=== PATIENT | female | born 2000 | race Caucasian/White ===

== ENCOUNTER → 2020-06-28 11:27 | Outpatient (BNVA) | payer MEDICAID, SELFPAY | PROVIDERS: Visit Provider Advanced Practice Midwife | DX: Z76.89 Persons encountering health services in other specified circumstances (principal) ==

== ENCOUNTER → 2020-08-07 09:17 | Outpatient (BNVA) | payer MEDICAID, SELFPAY | PROVIDERS: Visit Provider Advanced Practice Midwife | DX: Z30.46 Encounter for surveillance of implantable subdermal contraceptive (principal) | CPT/HCPCS: 99212 ==

== ENCOUNTER 2021-01-30 08:27 | Outpatient (REF) | payer MEDICAID, SELFPAY ==
[2021-01-30 08:55] LABS: COVID-19 Test Negative (Negative)
== END 2021-01-30 08:28 | disposition home or self-care (01) ==
LOC: HO.LAB 08:27
PROVIDERS: Visit Provider Internal Medicine
DX: Z20.822 Contact with and (suspected) exposure to COVID-19 (principal)
CPT/HCPCS: 36415; 87635; C9803

== ENCOUNTER 2021-03-07 13:46 | Outpatient (REF) | payer MEDICAID, SELFPAY ==
[2021-03-08 03:59] LABS: CT PCR NOT DETECTED (Not Detect.); NG PCR NOT DETECTED (Not Detect.)
== END 2021-03-07 13:47 | disposition home or self-care (01) ==
LOC: HO.LAB 13:46
PROVIDERS: Visit Provider Advanced Practice Midwife
DX: Z01.419 Encounter for gynecological examination (general) (routine) without abnormal findings (principal); E66.01 Morbid (severe) obesity due to excess calories; Z11.3 Encounter for screening for infections with a predominantly sexual mode of transmission; Z68.41 Body mass index [BMI] 40.0-44.9, adult
CPT/HCPCS: 87491; 87591; 88142

== ENCOUNTER 2021-06-26 16:30 | Emergency (ER) | payer MEDICAID, SELFPAY ==
[2021-06-26 16:48] VITALS: BP 113/72; PULSE 83; RESP 18; TEMP 36.8; O2SAT 98; BMI 42.0
[2021-06-26 21:25] LABS: MANUAL DIFF FLAG NO
[2021-06-26 21:26] LABS: Appearance Urine CLEAR; Basophils Percent Auto 0.2 % (0-2); Color Urine YELLOW; Eosinophils Absolute Auto 0.3 X10*3/uL (0.0-0.4); Glucose Urine UA NEG (NEG); Hematocrit 45.1 % (37-47); Hemoglobin 15.2 g/dl (12.0-16.0); Imm Gran Abs Auto 0.02 X10*3/uL (0.00-0.03); Imm Gran Pct Auto 0.2 % (0.0-0.4); Leukocyte Esterase Urine NEG (NEG); Lymphocytes Percent Auto 33.4 % (20-40); Mean Corpuscular HGB Conc 33.7 g/dl (31.0-35.0); Mean Corpuscular Hemoglobin 27.5 pg (27.0-33.0); Mean Corpuscular Volume 81.6 fL (80-98); Mean Platelet Volume 9.7 fL (9.4-12.3); Monocytes Absolute Auto 0.5 X10*3/uL (0.1-1.2); Monocytes Percent Auto 5.3 % (2-11); Neutrophils Absolute Auto 5.1 X10*3/uL (2.0-8.3); Neutrophils Percent Auto 57.9 % (45-73); Nitrite Urine NEG (NEG); PH 6.5 (5.0-8.0); Platelet Count 271 X10*3/uL (160-400); Red Blood Count 5.53 X10*6/uL (4.20-5.50); Red Cell Distribution Width 12.8 % (11.0-16.0); Specific Gravity - Urine 1.025 (1.005-1.025); Urine Blood NEG (NEG); Urine Ketones NEG (NEG); Urine Protein NEG (NEG-TRACE); White Blood Count 8.9 X10*3/uL (4.8-10.8)
[2021-06-26 21:45] LABS: Alanine Aminotransferase 28 U/L (0-31); Albumin Level 4.6 g/dL (3.5-5.0); Alkaline Phosphatase 91 U/L (39-117); Anion Gap 12 (12-20); Aspartate Amino Transferase 23 U/L (5-31); Bilirubin Direct 0.2 mg/dL (0.0-0.5); Bilirubin Total 0.4 mg/dL (0.0-1.0); Blood Urea Nitrogen 11 mg/dL (9-16); Calcium 9.4 mg/dL (8.4-10.2); Carbon Dioxide 23 mmol/L (22-29); Chloride 110 mmol/L (96-108); Creatinine Clr Calc Pharmacy 156.1; Estimated Glomerular Filt Rate > 60; Glucose Random 81 mg/dL (60-115); Lipase 27 U/L (8-78); Potassium 4.1 mmol/L (3.3-5.1); Sodium 141 mmol/L (135-145); Total Protein 7.8 g/dL (6.5-8.0)
--- NOTE | 2021-06-26 21:47 | ED_ITS ---
HPI - Nausea/Vomiting/Diarrhea General Chief complaint: Nausea/Vomiting/Diarrhea Stated complaint: rash, migraine, vomiting Time Seen by Provider: 06/26/21 21:29 Source: patient Mode of arrival: ambulatory Limitations: no limitations History of Present Illness HPI Narrative: 21-year-old female who presents emergency department for evaluation of nausea, vomiting, diarrhea, headache and rash. The patient states that she has had a constant headache for approximately 2 weeks. She points to her frontal aspect for forehead when asked to localize the headache. The headache is a pressure-like sensation which waxes and wanes in intensity is 10/10 at its worst. Patient has had associated nausea for 2 weeks. She states that she has had 2-3 episodes of vomiting per day. She has also had 5-7 episodes of loose diarrheal stool daily. She states that any time she eats the food goes right through her and she has diarrhea. Patient has also noticed a rash on her right forearm and abdomen. She states that the rash has not changed but has been the same for 2 weeks. She states that the rash is pruritic and slightly painful. The patient has not been on antibiotics. She has not done any traveling. She has not had any tick bites that she has aura. She denied fever, chills, myalgias, arthralgias. She states that she is feeling fatigued. She denied abdominal pain. Related Data Home Medications Medication Instructions Recorded Confirmed vitamin with calcium 1 tab PO DAILY 06/21/20 06/28/20 no.72-iron 27 mg-folic acid 1 mg tablet ( Plus (calcium carbonate)) etonogestrel 68 mg subdermal SUBDERMAL 06/28/20 06/28/20 implant (Nexplanon) Previous Rx's Medication Instructions Recorded metoclopramide HCl 10 mg tablet 10 mg PO Q6H PRN #14 tab 06/26/21 (Reglan) prednisone 20 mg tablet 60 mg PO DAILY 7 Days #21 tab 06/26/21 Allergies Allergy/AdvReac Type Severity Reaction Status Date / Time cinnamon [CINNAMON] Allergy Severe ANAPHYLAXIS Verified 06/26/21 16:48 sweet potato [SWEET POTATO] Allergy Severe ANAPHYLAXIS Verified 06/26/21 16:48 Review of Systems Review of Systems: Yes all other systems are reviewed and are negative PMFSH Past Medical History [facility] Narrative: Past surgical history: None. Social history: She denies tobacco use. She denies alcohol use. She denies drug use. Medical History Anxiety attack Obesity Surgical History History of tonsillectomy and adenoidectomy Family History Family History Mother Cervical cancer Maternal Uncle Diabetes mellitus CVD (cardiovascular disease) Social History Social History Alcohol intake: never Advance Directives: No Advance Directives Information Provided: Yes Patient : No Gender identity: Female Physical Exam Vital Signs: Vital Signs: Last Vital Signs Temp 98.3 F 06/26/21 16:48 Pulse 83 06/26/21 16:48 Resp 18 06/26/21 16:48 BP 113/72 06/26/21 16:48 Pulse Ox 98 06/26/21 16:48 Body Mass Index 42.0 Const: Other: Very pleasant and cooperative female patient, she does not appear to be in distress. She answers all questions appropriately. HENMT: Head: Yes normal to inspection, Yes normocephalic and Yes atraumatic Ears: external ears normal General nose exam: Normal external nose present Face and sinus: Yes normal facial exam Mouth: Normal oral and palatal mucosa present Throat: Yes posterior oropharynx normal Eyes: General: appearance normal, both eyes and all related structures Pupils: Equal, round and reactive pupils present Neck: Neck: Yes normal visual inspection, Yes no lymphadenopathy, Yes trachea midline and Yes supple Chest: Chest palpation & inspection: normal inspection of the chest and normal palpation of entire chest wall Resp: Effort & Inspection: normal respiratory effort and able to speak in complete sentences Auscultation: clear to auscultation bilaterally Cardio: Rate: regular rate Rhythm: regular rhythm Heart sounds: S1 normal heart sound present, S2 normal heart sound present and no murmurs GI: Inspection: Yes normal to inspection Palpation (GI): Soft to palpation, nontender and no guarding Auscultation: normal bowel sounds : General: Yes no CVA tenderness Back/Spine/Pelvis: Back: no CVA tenderness Skin: Other: The patient has to large irregular oval rash is to her right forearm, the rash is erythematous, scaly and slightly raised, the rash does madalyn with pressure. She has a similar area of erythema on her right lab abdominal wall. The erythema is not warm to the touch. Neuro: Cranial nerves: Yes CN's II-XII intact bilaterally and Yes Equal, round and reactive pupils present Cognition (Neuro): normal cognition Motor exam (neuro): 5/5 motor strength present throughout Extrem: General: Yes normal to inspection Psych: Appearance: grossly normal Speech and movement: Normal speech and movement present Affect: normal affect Attitude: cooperative Thought process: Normal thought process present Thought content: Normal thought content present Course Course Course Narrative: 21-year-old female who presents emergency department for evaluation of 2 weeks of headache, nausea, vomiting and diarrhea and a rash to her right forearm and to her abdomen. Vital signs were normal. The patient's physical examination revealed a rash to her right forearm and to her right abdominal wall which I think is consistent with a contact dermatitis. Patient did not have any significant abdominal pain. Her neurologic exam was nonfocal. I suspect the patient has an acute viral illness as the cause of her symptoms I did discuss this with her. The patient drove herself here to the emergency department and does not want any medications that will inhibit her ability to drive home. Laboratory evaluation was ordered and this included a CBC, BMP, liver panel, lipase and urinalysis. These tests were all normal. The patient will be started on the following headache/migraine regimen every 6 hours as needed: Reglan 10 mg, Benadryl 50 mg, Excedrin migraine 2 tablets. The patient's diarrhea will be treated with Imodium. Patient's contact dermatitis be treated with prednisone 60 mg once a day for 7 days. Patient was given printed and verbal instructions and she was discharged home. MDM - Nausea/Vomiting/Diarrhea Lab Data Result diagrams: 06/26/21 21:19 06/26/21 21:19 Labs: Lab Results 06/26/21 06/26/21 06/26/21 Range/Units 21:19 21:19 21:19 WBC 8.9 (4.8-10.8) X10*3/uL RBC 5.53 H (4.20-5.50) X10*6/uL Hgb 15.2 (12.0-16.0) g/dl Hct 45.1 (37-47) % MCV 81.6 (80-98) fL MCH 27.5 (27.0-33.0) pg MCHC 33.7 (31.0-35.0) g/dl RDW 12.8 (11.0-16.0) % Plt Count 271 (160-400) X10*3/uL MPV 9.7 (9.4-12.3) fL Immature Gran % (Auto) 0.2 (0.0-0.4) % Neut % (Auto) 57.9 (45-73) % Lymph % (Auto) 33.4 (20-40) % [place] % (Auto) 5.3 (2-11) % Eos % (Auto) 3.0 (0-4) % Baso % (Auto) 0.2 (0-2) % Lymph # (Auto) 3.0 (1.2-4.9) X10*3/uL [place] # (Auto) 0.5 (0.1-1.2) X10*3/uL Eos # (Auto) 0.3 (0.0-0.4) X10*3/uL Baso # (Auto) 0.0 (0.0-0.2) X10*3/uL Abs Immat Gran (auto) 0.02 (0.00-0.03) X10*3/uL Absolute Neuts (auto) 5.1 (2.0-8.3) X10*3/uL Absolute Nucleated RBC 0.000 (0.0-0.012) X10*3/uL Nucleated RBC % (auto) 0.0 (0.0-0.2) /100WBC Sodium 141 (135-145) mmol/L Potassium 4.1 (3.3-5.1) mmol/L Chloride 110 H (96-108) mmol/L Carbon Dioxide 23 (22-29) mmol/L Anion Gap 12 (12-20) BUN 11 (9-16) mg/dL Creatinine 0.67 (0.5-1.4) mg/dL Estim Creat Clear Calc 156.1 Estimated GFR > 60 Random Glucose 81 (60-115) mg/dL Calcium 9.4 (8.4-10.2) mg/dL Total Bilirubin 0.4 (0.0-1.0) mg/dL Direct Bilirubin 0.2 (0.0-0.5) mg/dL AST 23 (5-31) U/L ALT 28 (0-31) U/L Alkaline Phosphatase 91 (39-117) U/L Total Protein 7.8 (6.5-8.0) g/dL Albumin 4.6 (3.5-5.0) g/dL Lipase 27 (8-78) U/L Urine Color YELLOW Urine Appearance CLEAR Urine pH 6.5 (5.0-8.0) Ur Specific [place] 1.025 (1.005-1.025) Urine Protein NEG (NEG-TRACE) MG/DL Urine Glucose (UA) NEG (NEG) MG/DL Urine Ketones NEG (NEG) MG/DL Urine Blood NEG (NEG) Urine Nitrite NEG (NEG) Ur Leukocyte Esterase NEG (NEG) Discharge Plan Discharge Clinical Impression: Acute headache, Viral syndrome, Nausea & vomiting, Diarrhea Patient Disposition: Home, Self-Care Instructions: Contact Dermatitis (ED), Acute Headache (ED), Acute Diarrhea (ED) Additional Instructions: Your blood work and urinalysis were unremarkable which is reassuring. Your headache, nausea and vomiting is consistent with a viral infection. I want to treat your headache nausea and vomiting with the following medications, take them together every 6 hours as needed for these symptoms: Reglan (metoclopramide) in 10 mg, 1 pill Benadryl 25 mg, 2 pills Excedrin migraine, 2 pills. After you take these medications, lie down in a dark quiet room and try to fall asleep. These medications will make you sleepy, do not drive or work after taking these medications. Your rash is consistent with a contact dermatitis. Take prednisone 20 mg pills, 3 pills once a day for 7 days. For your diarrhea take Imodium 2 mg pills, 2 pills after your 1st loose diarrheal stool then 1 pill after each loose diarrheal stool up to 8 pills per day. Do this for 2-3 days and that should stop your diarrhea. Follow-up with your doctor in 2 days. Please return to the emergency department if your symptoms get worse or if you develop any symptoms that are concerning to you. Prescriptions: New prednisone 20 mg tablet 60 mg PO DAILY 7 Days Qty: 21 RF: 0 metoclopramide HCl [Reglan] 10 mg tablet 10 mg PO Q6H PRN (Reason: nausea and vomiting) Qty: 14 RF: 0 No Action Plus (calcium carb) 27 mg iron- 1 mg tablet 1 tab PO DAILY RF: 0 Nexplanon 68 mg implant subdermal RF: 0
== END 2021-06-26 22:27 | disposition home or self-care (01) ==
PROVIDERS: Emergency Provider Emergency Medicine Emergency Medical Services
DX: B34.9 Viral infection, unspecified (principal); R51.9 Headache, unspecified; R11.2 Nausea with vomiting, unspecified; R19.7 Diarrhea, unspecified; Z79.899 Other long term (current) drug therapy
CPT/HCPCS: 36415; 80048; 80076; 81003; 83690; 85025; 99283

== ENCOUNTER 2022-01-12 13:57 | Emergency (ER) | payer MEDICAID, SELFPAY ==
--- NOTE | ~2022-01-12 | CT_ITS ---
EXAMINATION: CT ABDOMEN AND PELVIS WITHOUT CONTRAST CLINICAL INFORMATION: Right-sided flank pain, dysuria COMPARISON: CT abdomen pelvis 11/13/2017 TECHNIQUE: Multidetector volumetric imaging was performed from the superior aspect of the liver through the pubic symphysis. Sagittal and coronal reformatted images were obtained on the technologist's workstation. This CT examination was performed using dose optimization techniques as appropriate, variously including the following: *Automated exposure control *Adjustment of mA and/or kV according to patient size (this includes techniques or standardized protocols for targeted exams where dose is matched to indication/reason for exam; i.e. extremities or head) *Use of iterative reconstruction technique DLP: 965 mGy-cm FINDINGS: LUNG BASES: Left upper lobe solid pulmonary micronodule, 4:14. ABDOMINAL AND PELVIC WALL: Tiny fat-containing umbilical hernia. LIVER AND BILIARY TREE: Hypoattenuating hepatic parenchyma suggesting hepatic steatosis. GALLBLADDER: Unremarkable. PANCREAS: Unremarkable. SPLEEN: Unremarkable. ADRENAL GLANDS: Unremarkable. KIDNEYS AND URETERS: Punctate nonobstructing left upper pole renal stone. No obstructive ureterolithiasis or hydronephrosis. GASTROINTESTINAL TRACT: Colonic diverticulosis without evidence of diverticulitis. Normal appendix. VASCULAR: Unremarkable. LYMPH NODES/PERITONEUM: Few prominent retroperitoneal and mesenteric nodes appear not significantly changed from 2018. No new or increasing lymphadenopathy. FREE FLUID: None. BLADDER: Unremarkable. PELVIC VISCERA: Unremarkable. OSSEOUS STRUCTURES: Unremarkable. CT/CT abdomen pelvis wo con IMPRESSION: Punctate nonobstructing left upper pole renal stone. No obstructive ureterolithiasis or hydronephrosis. Hepatic steatosis. A left upper lobe solid pulmonary micronodule. In patients younger than age 35, standard Fleischner Society recommendations for incidental pulmonary nodule follow-up do not apply as nodules in this age group are most likely to be infectious/inflammatory. Recommend clinical correlation with any risk factors to assess if follow-up of these nodules is clinically warranted.
[2022-01-12 14:15] VITALS: BP 119/74; PULSE 83; RESP 16; TEMP 36.8; O2SAT 98; BMI 40.7
[2022-01-12 15:08] LABS: Appearance Urine HAZY; Color Urine YELLOW; Glucose Urine UA NEG (NEG); Leukocyte Esterase Urine NEG (NEG); Nitrite Urine NEG (NEG); Specific Gravity - Urine 1.025 (1.005-1.025); Urine Blood NEG (NEG); Urine Ketones NEG (NEG); Urine Protein NEG (NEG-TRACE)
[2022-01-12 15:10] LABS: UPreg QC Valid YES; Urine Pregnancy NEGATIVE (NEGATIVE)
--- NOTE | 2022-01-12 15:43 | ED_ITS ---
HPI - Female Genitourinary General Chief complaint: Urogenital-Female Stated complaint: kidney pain painfull upon urination Time Seen by Provider: 01/12/22 14:36 Source: patient Mode of arrival: ambulatory Limitations: no limitations History of Present Illness HPI Narrative: 21 yo female with history of obesity presents to the ER with 3 days of intermittent sharp right sided flank pain. She also reports 2 days ago she had nausea, vomiting and diarrhea. She denies fever, chills, or pain with urination. She states the pain starts in her right lower abdomen and shoots up and around to her right flank. She is not sure if she may be , LMP 3 years ago w/ control implant in the arm. She denies any vaginal bleeding, pain or discharge. She denies history of ovarian cysts or kidney stones. No URI symp toms. MD elicited complaint: flank pain Onset (ago): day(s) (3) Location of symptoms: RLQ Severity: moderate Female Urogenital Radiation: R Flank Severity scale (1-10): 7 Quality of pain: sharp and stabbing Consistency: intermittent Vaginal discharge: none Vaginal bleeding: none Exacerbating factors: none Relieving factors: none Associated symptoms: abdominal pain, loss of appetite, nausea, vomiting and back pain Treatment prior to arrival: none Possible : unsure if Related Data Home Medications Medication Instructions Recorded Confirmed vitamin with calcium 1 tab PO DAILY 06/21/20 06/28/20 no.72-iron 27 mg-folic acid 1 mg tablet ( Plus (calcium carbonate)) etonogestrel 68 mg subdermal SUBDERMAL 06/28/20 06/28/20 implant (Nexplanon) Previous Rx's Medication Instructions Recorded metoclopramide HCl 10 mg tablet 10 mg PO Q6H PRN #14 tab 06/26/21 (Reglan) prednisone 20 mg tablet 60 mg PO DAILY 7 Days #21 tab 06/26/21 Allergies Allergy/AdvReac Type Severity Reaction Status Date / Time cinnamon [CINNAMON] Allergy Severe ANAPHYLAXIS Verified 01/12/22 14:18 sweet potato [SWEET POTATO] Allergy Severe ANAPHYLAXIS Verified 01/12/22 14:18 Review of Systems Review of Systems: Constitutional: No Fever, No Chills ENT/Mouth: No sore throat, No Rhinorrhea, No Swallowing Difficulty Eyes: No Eye Pain, No Swelling, No Redness Cardiovascular: No Chest Pain, No SOB Respiratory: No Cough, No Sputum Gastrointestinal: + Nausea, +Vomiting, +Diarrhea, + abdominal Pain, No Hematochezia, No Melena Genitourinary: No Dysuria, No Urinary Frequency, No Hematuria Musculoskeletal: No joint pain, No Myalgias Skin: No Skin Lesions, No rash Neuro: No Weakness, No Numbness, No Dizziness, No Headache Psych: No Anxiety/Panic, No Depression Heme/Lymph: No Bruising, No Lymphadenopathy Endocrine: No Polyuria, No Polydipsia PMFSH Past Medical History Medical History Anxiety attack Obesity Surgical History History of tonsillectomy and adenoidectomy Family History Family History Mother Cervical cancer Maternal Uncle Diabetes mellitus CVD (cardiovascular disease) Social History Social History Alcohol intake: never Advance Directives: No Advance Directives Information Provided: No Patient : No Gender identity: Female Physical Exam Vital Signs: Vital Signs: Last Vital Signs Temp 98.2 F 01/12/22 14:15 Pulse 83 01/12/22 14:15 Resp 16 01/12/22 14:15 BP 119/74 01/12/22 14:15 Pulse Ox 98 01/12/22 14:15 BMI result Body Mass Index 40.7 Appearance: Alert. Oriented X3. No acute distress. Eyes: Pupils equal, round and reactive to light. ENT: Pharynx normal. Neck: Normal inspection. Neck supple. CVS: Normal heart rate and rhythm. Pulses normal. Respiratory: No respiratory distress. Breath sounds normal. Abdomen: Obese, Soft with tenderness of the right side of her abdomen, no r ebound or guarding. normal +BS x4. +CVA tenderness on the right. Pelvic deferred Skin: Skin warm and dry. Normal skin color. Normal skin turgor. No rashes. Extremities: No lower extremity edema. Neuro: Oriented X 3. No motor deficit. No sensory deficit. Course Course Course Narrative: 21 y/o female presenting to the ER with intermittent right sided abdominal pain and flank pains along with N/V/D (now resolved). VS normal. She has some tenderness throughout her right abd to deep palpation as well as right CVA tenderenss. UA is negative for blood, infection and . Will get basic l abs and CT scan for further evaluation. Reevaluation(s) Reevaluation #1: Labs are normal. Her CT scan does not show any acute findings to explain her symptoms. She has nonobstructing punctate left upper pole renal stones with no ureterolithiasis or hydronephrosis. Appendix is normal. Pelvic viscera are normal. Given her normal workup and reports of vomiting and diarrhea 2 days ago her abdominal pain may be due to viral gastroenteritis. She has had no vomiting or diarrhea here. No severe abdominal pain while in the emergency room. She is tolerating p.o.. She is stable for discharge home with supportive care, return precautions were discussed. MDM - Female Genitourinary Lab Data Result diagrams: 01/12/22 17:09 01/12/22 17:09 Labs: Lab Results 01/12/22 01/12/22 01/12/22 Range/Units 14:39 14:39 17:09 WBC 9.8 (4.8-10.8) X10*3/uL RBC 5.32 (4.20-5.50) X10*6/uL Hgb 14.7 (12.0-16.0) g/dl Hct 43.4 (37.0-47.0) % MCV 81.6 (80.0-98.0) fL MCH 27.6 (27.0-33.0) pg MCHC 33.9 (31.0-35.0) g/dl RDW 12.6 (11.0-16.0) % Plt Count 285 (160-400) X10*3/uL MPV 9.4 (9.4-12.3) fL Immature Gran % (Auto) 0.4 (0.0-0.4) % Neut % (Auto) 60.4 (45-73) % Lymph % (Auto) 31.7 (20-40) % [place] % (Auto) 5.5 (2-11) % Eos % (Auto) 1.8 (0-4) % Baso % (Auto) 0.2 (0-2) % Lymph # (Auto) 3.1 (1.2-4.9) X10*3/uL [place] # (Auto) 0.5 (0.1-1.2) X10*3/uL Eos # (Auto) 0.2 (0.0-0.4) X10*3/uL Baso # (Auto) 0.0 (0.0-0.2) X10*3/uL Abs Immat Gran (auto) 0.04 H (0.00-0.03) X10*3/uL Absolute Neuts (auto) 5.9 (2.0-8.3) x10*3/uL Absolute Nucleated RBC 0.000 (0.0-0.012) X10*3/uL Nucleated RBC % (auto) 0.0 (0.0-0.2) /100WBC Sodium (135-145) mmol/L Potassium (3.3-5.1) mmol/L Chloride (96-108) mmol/L Carbon Dioxide (22-29) mmol/L Anion Gap (12-20) BUN (9-16) mg/dL Creatinine (0.5-1.4) mg/dL Estim Creat Clear Calc Estimated GFR Random Glucose (60-115) mg/dL Calcium (8.4-10.2) mg/dL Magnesium (1.6-2.6) mg/dL Total Bilirubin (0.0-1.0) mg/dL Direct Bilirubin (0.0-0.5) mg/dL AST (5-31) U/L ALT (0-31) U/L Alkaline Phosphatase (39-117) U/L Total Protein (6.5-8.0) g/dL Albumin (3.5-5.0) g/dL Urine Color YELLOW Urine Appearance HAZY Urine pH 6.0 (5.0-8.0) Ur Specific [place] 1.025 (1.005-1.025) Urine Protein NEG (NEG-TRACE) MG/DL Urine Glucose (UA) NEG (NEG) MG/DL Urine Ketones NEG (NEG) MG/DL Urine Blood NEG (NEG) Urine Nitrite NEG (NEG) Ur Leukocyte Esterase NEG (NEG) Urine Test NEGATIVE (NEGATIVE) 01/12/22 Range/Units 17:09 WBC (4.8-10.8) X10*3/uL RBC (4.20-5.50) X10*6/uL Hgb (12.0-16.0) g/dl Hct (37.0-47.0) % MCV (80.0-98.0) fL MCH (27.0-33.0) pg MCHC (31.0-35.0) g/dl RDW (11.0-16.0) % Plt Count (160-400) X10*3/uL MPV (9.4-12.3) fL Immature Gran % (Auto) (0.0-0.4) % Neut % (Auto) (45-73) % Lymph % (Auto) (20-40) % [place] % (Auto) (2-11) % Eos % (Auto) (0-4) % Baso % (Auto) (0-2) % Lymph # (Auto) (1.2-4.9) X10*3/uL [place] # (Auto) (0.1-1.2) X10*3/uL Eos # (Auto) (0.0-0.4) X10*3/uL Baso # (Auto) (0.0-0.2) X10*3/uL Abs Immat Gran (auto) (0.00-0.03) X10*3/uL Absolute Neuts (auto) (2.0-8.3) x10*3/uL Absolute Nucleated RBC (0.0-0.012) X10*3/uL Nucleated RBC % (auto) (0.0-0.2) /100WBC Sodium 139 (135-145) mmol/L Potassium 4.3 (3.3-5.1) mmol/L Chloride 107 (96-108) mmol/L Carbon Dioxide 24 (22-29) mmol/L Anion Gap 12 (12-20) BUN 12 (9-16) mg/dL Creatinine 0.72 (0.5-1.4) mg/dL Estim Creat Clear Calc 142.7 Estimated GFR > 60 Random Glucose 75 (60-115) mg/dL Calcium 9.3 (8.4-10.2) mg/dL Magnesium 2.0 (1.6-2.6) mg/dL Total Bilirubin 0.5 (0.0-1.0) mg/dL Direct Bilirubin 0.2 (0.0-0.5) mg/dL AST 14 (5-31) U/L ALT 16 (0-31) U/L Alkaline Phosphatase 83 (39-117) U/L Total Protein 7.0 (6.5-8.0) g/dL Albumin 4.0 (3.5-5.0) g/dL Urine Color Urine Appearance Urine pH (5.0-8.0) Ur Specific [place] (1.005-1.025) Urine Protein (NEG-TRACE) MG/DL Urine Glucose (UA) (NEG) MG/DL Urine Ketones (NEG) MG/DL Urine Blood (NEG) Urine Nitrite (NEG) Ur Leukocyte Esterase (NEG) Urine Test (NEGATIVE) Discharge Plan Discharge Clinical Impression: Gastroenteritis Patient Disposition: Home, Self-Care Instructions: Gastroenteritis (DC) Additional Instructions: You lab workup today was unremarkable. Your urine test was negative for infection and . You most likely have a viral GI bug also known as gastroenteritis. Treatment is supportive care, symptoms usually resolve on their own in 48-72 hours. Recommend rest and plenty of oral hydration. Stick to a bland diet like soup and toast while you are not feeling well. Recommend over the counter Pepto Bismol or Imodium for upset stomach and diarrhea. Follow up with your doctor as needed. If you develop new or worsening symptoms call 911 or come back to the ER for further evaluation. Prescriptions: No Action prednisone 20 mg tablet 60 mg PO DAILY 7 Days Qty: 21 0RF metoclopramide HCl [Reglan] 10 mg tablet 10 mg PO Q6H PRN (Reason: nausea and vomiting) Qty: 14 0RF Plus (calcium carb) 27 mg iron- 1 mg tablet 1 tab PO DAILY 0RF Nexplanon 68 mg implant subdermal 0RF Stand Alone Forms: Work/School Release Interventions: ED Discharge Assessment Last Done: 01/12/22 17:51 Discharge Date/Time: 01/12/22 17:54
[2022-01-12 17:14] LABS: MANUAL DIFF FLAG NO
[2022-01-12 17:19] LABS: Basophils Percent Auto 0.2 % (0-2); Eosinophils Absolute Auto 0.2 X10*3/uL (0.0-0.4); Eosinophils Percent Auto 1.8 % (0-4); Hematocrit 43.4 % (37.0-47.0); Hemoglobin 14.7 g/dl (12.0-16.0); Imm Gran Abs Auto 0.04 X10*3/uL (0.00-0.03); Imm Gran Pct Auto 0.4 % (0.0-0.4); Lymphocytes Absolute Auto 3.1 X10*3/uL (1.2-4.9); Lymphocytes Percent Auto 31.7 % (20-40); Mean Corpuscular HGB Conc 33.9 g/dl (31.0-35.0); Mean Corpuscular Hemoglobin 27.6 pg (27.0-33.0); Mean Corpuscular Volume 81.6 fL (80.0-98.0); Mean Platelet Volume 9.4 fL (9.4-12.3); Monocytes Absolute Auto 0.5 X10*3/uL (0.1-1.2); Monocytes Percent Auto 5.5 % (2-11); Neutrophils Absolute Auto 5.9 x10*3/uL (2.0-8.3); Neutrophils Percent Auto 60.4 % (45-73); Platelet Count 285 X10*3/uL (160-400); Red Blood Count 5.32 X10*6/uL (4.20-5.50); Red Cell Distribution Width 12.6 % (11.0-16.0); White Blood Count 9.8 X10*3/uL (4.8-10.8)
[2022-01-12 17:29] LABS: Alanine Aminotransferase 16 U/L (0-31); Alkaline Phosphatase 83 U/L (39-117); Anion Gap 12 (12-20); Aspartate Amino Transferase 14 U/L (5-31); Bilirubin Direct 0.2 mg/dL (0.0-0.5); Bilirubin Total 0.5 mg/dL (0.0-1.0); Blood Urea Nitrogen 12 mg/dL (9-16); Calcium 9.3 mg/dL (8.4-10.2); Carbon Dioxide 24 mmol/L (22-29); Chloride 107 mmol/L (96-108); Creatinine Clr Calc Pharmacy 142.7; Estimated Glomerular Filt Rate > 60; Glucose Random 75 mg/dL (60-115); Potassium 4.3 mmol/L (3.3-5.1); Sodium 139 mmol/L (135-145)
== END 2022-01-12 17:54 | disposition home or self-care (01) ==
PROVIDERS: Physician Assistant; Emergency Provider Emergency Medicine; PCP Pediatrics
DX: K52.9 Noninfective gastroenteritis and colitis, unspecified (principal); R30.9 Painful micturition, unspecified; N20.0 Calculus of kidney
CPT/HCPCS: 36415; 74176; 80048; 80076; 81003; 81025; 83735; 85025; 99283; 99284

== ENCOUNTER 2022-05-08 14:34 | Outpatient (REF) | payer MEDICAID, SELFPAY ==
[2022-05-08 18:48] LABS: CT PCR NOT DETECTED (Not Detect.); NG PCR NOT DETECTED (Not Detect.)
[2022-05-09 10:51] LABS: BV Int Neg Control Negative (Negative); BV Int Pos Control Positive (Positive)
== END 2022-05-08 14:35 | disposition home or self-care (01) ==
LOC: HO.LAB 14:34
PROVIDERS: Visit Provider Advanced Practice Midwife
DX: Z11.3 Encounter for screening for infections with a predominantly sexual mode of transmission (principal)
CPT/HCPCS: 36415; 86704; 86780; 86803; 87389; 87480; 87491; 87510; 87591; 87660

== ENCOUNTER 2022-05-08 14:46 | Outpatient (REF) | payer MEDICAID, SELFPAY ==
[2022-05-08 16:24] LABS: Syphilis Screen Nonreactive (Nonreactive)
[2022-05-09 08:32] LABS: HBc Num1 0.09 S/CO (0.00-0.79); HIV AB/AG Nonreactive (Nonreactive); HIV Num 1 0.08 S/CO (0.00-0.99); Hepatitis B Core Antibody Nonreactive (Nonreactive); ~HepC Num1 0.08 S/CO (0.00-0.79); ~Hepatitis C Antibody Nonreactive (Nonreactive)
== END 2022-05-08 14:47 | disposition home or self-care (01) ==
LOC: HO.LAB 14:46
PROVIDERS: Visit Provider Advanced Practice Midwife
DX: Z11.4 Encounter for screening for human immunodeficiency virus [HIV] (principal); Z20.2 Contact with and (suspected) exposure to infections with a predominantly sexual mode of transmission
CPT/HCPCS: 36415; 86704; 86780; 86803; 87389

== ENCOUNTER 2023-04-09 14:32 | Outpatient (AMB) | payer MEDICAID, SELFPAY ==
--- NOTE | 2023-04-09 14:39 | MHC.OFFVIS ---
Intake Vital Signs 04/09/23 14:40 Height 5 ft 3 in Weight 248 lb BMI 43.9 BP 100/64 Intake Visit Reasons: control consult Intake Note: pt wants to discuss removing nexplanon and changing to another BC. The patient agreed to use of a medical office technician during this encounter. Scribed for TASHI Esteves by Crystal Yosusef medical office technician, on 04/09/2023 at 3:00 pm EST. Allergies cinnamon [CINNAMON] Allergy (Severe, Verified 04/09/23 14:42) ANAPHYLAXIS sweet potato [SWEET POTATO] Allergy (Severe, Verified 04/09/23 14:42) ANAPHYLAXIS HPI HPI Comments History of Present Illness Details She is here for a control consult and interested in removing her Nexplanon, due to be replaced 06/2023. Reports she is not interested in at the moment and will plan a in the future. She has concerns of recent weight gain despite eating healthy and exercising. [facility] Medical History Anxiety attack control counseling Obesity Surgical History History of tonsillectomy and adenoidectomy Family History Mother Cervical cancer Maternal Uncle Diabetes mellitus CVD (cardiovascular disease) Maternal Aunt Ovarian cancer Social History Alcohol intake: never Patient Tobacco Use Status: Never used Tobacco Sexual orientation: Straight/Heterosexual Gender identity: Female Female Reproductive History Menstrual Age of Menarche: 8 Physical Exam Vital Signs: Last Vital Signs BP 100/64 04/09/23 14:40 BMI result Body Mass Index 43.9 Const General: cooperative, healthy appearing, comfortable, no acute distress, well developed, alert and awake Assessment & Plan Assessment & Plan (1) control counseling: Code(s): Z30.09 - Encounter for other general counseling and advice on contraception Plan: Discussed: Informed that Nexplanon can contribute to weight changes. Different BC options including control pills: OCP-she forgets pills, DPMA, IUD and Nexplanon. She opts for the Kyleena IUD. Discussed the benefits of the IUD. Types of progesterone IUD's. Schedule Nexplanon removal and same day Kyleena insertion before the device expires. All of her questions and concerns were addressed to the best of my ability and shared decision making. She is agreeable to plan of care. Coding Level of Care Code Est Pt Level 3 (30191) Diagnoses control counseling Z30.09
[2023-04-09 14:40] VITALS: BP 100/64; BMI 43.9
== END 2023-04-09 15:20 | disposition home or self-care (01) ==
LOC: HO.HWS 14:32
PROVIDERS: PCP Pediatrics; Visit Provider Advanced Practice Midwife
DX: Z30.09 Encounter for other general counseling and advice on contraception (principal)
CPT/HCPCS: 99213

== ENCOUNTER → 2023-04-09 14:32 | Outpatient (BNVA) | payer MEDICAID, SELFPAY | PROVIDERS: PCP Pediatrics; Visit Provider Advanced Practice Midwife | DX: Z30.09 Encounter for other general counseling and advice on contraception (principal) | CPT/HCPCS: 99213 ==

== ENCOUNTER 2023-04-19 12:28 | Emergency (ER) | payer MEDICAID, SELFPAY ==
--- NOTE | ~2023-04-19 | CT_ITS ---
EXAMINATION: CT HEAD WITHOUT CONTRAST CLINICAL INFORMATION: Headache. COMPARISON: None. TECHNIQUE: Contiguous axial imaging was performed from the skull base to vertex without intravenous administration of contrast. Coronal and sagittal reformatted images are performed at the CT scanner. [This CT examination was performed using dose optimization techniques as appropriate, variously including the following: *Automated exposure control *Adjustment of mA and/or kV according to patient size (this includes techniques or standardized protocols for targeted exams where dose is matched to indication/reason for exam; i.e. extremities or head) *Use of iterative reconstruction technique] DLP: 606 mGy-cm. FINDINGS: There is no evidence of acute intracranial hemorrhage or territorial infarction. No abnormal mass-effect or midline shift is seen. Ceja to white matter differentiation is well preserved. No extra-axial fluid collections are identified. The ventricles are normal in size. There is no abnormal attenuation within the brain parenchyma. There is no osseous abnormality. The mastoid air cells and visualized portions of the paranasal sinuses are well-aerated. CT/CT head/brain wo IV con IMPRESSION: No acute intracranial pathology.
--- NOTE | 2023-04-19 12:39 | ED.HA ---
HPI - Headache General Chief Complaint: Headache Stated Complaint: headache 1 week Time Seen by Provider: 04/19/23 15:55 Source: patient Mode of arrival: ambulatory Limitations: no limitations History of Present Illness HPI Narrative: 23 yo female hx of chronic headaches 2+ a week no prior workup notes that she has had a headache since friday has worsened no fevers no trauma started at work but no heavy lifting or straining. she has no neck pain headache is in front of face she has no sinus issues. she feels her vision is slightly burry at times due to pain and feels dizzy with n/v she has no fam hx of headaches and is not responding to advil. MD elicited complaint: headache Pertinent past history: other (chronic headaches) Onset (ago): week(s) (1) Onset description: gradually and while at rest Location: frontal and temporal Severity: moderate Quality & Timing: dull, steady, squeezing and constant Exacerbating factors: light and noise Relieving factors: nothing Context: occurred at rest Associated symptoms: nausea, vomiting, photophobia and lightheadedness Treatments prior to arrival: none Related Data Home Medications Medication Instructions Recorded Confirmed etonogestrel 68 mg subdermal subdermal 06/28/20 06/28/20 implant (Nexplanon) Previous Rx's Medication Instructions Recorded cyclobenzaprine 10 mg tablet 10 mg PO TID PRN muscle spasm #14 04/19/23 tabs ondansetron 4 mg disintegrating 4 mg PO Q8H PRN nausea and 04/19/23 tablet vomiting #20 tabs Allergies Allergy/AdvReac Type Severity Reaction Status Date / Time cinnamon [CINNAMON] Allergy Severe ANAPHYLAXIS Verified 04/19/23 12:42 sweet potato [SWEET POTATO] Allergy Severe ANAPHYLAXIS Verified 04/19/23 12:42 Review of Systems Review of Systems: Constitutional : No Fever, No Chills, No Fatigue ENT/Mouth : No sore throat, No Rhinorrhea Eyes: No Eye Pain, No Swelling, No Redness, pos photophobia Cardiovascular : No Chest Pain, No SOB, No Dyspnea on Exertion Respiratory : No Cough, No Sputum Gastrointestinal : pos Nausea, pos Vomiting, No Diarrhea, No abdominal Pain Genitourinary : No Dysuria, No Urinary Frequency, No Hematuria, Musculoskeletal : No joint pain, No Myalgias, No Joint Swelling Skin : No Skin Lesions, No rash Neuro : No Weakness, No Numbness, pos Dizziness, positive Headache Psych : No Anxiety/Panic, No Depression All other systems reviewed and are negative [facility] Past Medical History Attestation statement: The following information was validated with the patient. Medical History Anxiety attack control counseling Obesity Surgical History History of tonsillectomy and adenoidectomy Family History Family History Mother Cervical cancer Maternal Uncle Diabetes mellitus CVD (cardiovascular disease) Maternal Aunt Ovarian cancer Social History Social History Alcohol intake: never Patient Tobacco Use Status: Never used Tobacco Smoked in Last 30 Days: No Use of substances other than those prescribed or required for medical reasons: No Advance Directives: No Advance Directives Information Provided: Yes Sexual orientation: Straight/Heterosexual Gender identity: Female Physical Exam Vital Signs: Vital Signs: Last Vital Signs Temp 98.5 F 04/19/23 15:10 Pulse 65 04/19/23 15:10 Resp 16 04/19/23 15:10 BP 127/80 04/19/23 15:10 Pulse Ox 100 04/19/23 15:10 O2 Del Method Room Air 04/19/23 15:10 BMI result Body Mass Index 44.6 Appearance: Alert. Oriented X3. No acute distress. Eyes: Pupils equal, round and reactive to light. ENT: Pharynx normal. Neck: Normal inspection. Neck supple. no meningeal signs CVS: Normal heart rate and rhythm. Pulses normal. Respiratory: No respiratory distress. Breath sounds normal. Abdomen: Soft and nontender. Skin: Skin warm and dry. Normal skin color. Normal skin turgor. Extremities: No lower extremity edema. No calf ttp Neuro: Oriented X 3. No motor deficit. No sensory deficit. Cn2-12 intact Course Course Course Narrative: This is an RME: Additional HPI, ROS, PE not included below will be deferred to primary provider. Patient is a 23-year-old female who presents emergency department for intractable headache x1 week, diffuse frontal, burning type of pain, with associated nausea, vomiting, dizziness. Denies neck pain. Took Advil 800 mg 2 hours ago without any improvement. LMP unknown, has nexplanon. Plan: placed in WR pending bed availability Reevaluation(s) Reevaluation #1: feels better stable for DC Medical Decision Making Medical Decision Making [facility] Narrative: 23 yo female no PMH not on thinners here with c/o frontal temporal infection notes headache gradual onset no fevers normal neuro exam supple neck - worsening since Friday doubt ICH or [employer]IVE infection at this time will obtain CT scan for mass given chronic headaches and treat symptoms - likely migraine Differential Diagnosis Differential Diagnoses: The differential diagnosis associated with the presentation includes tension headache, cluster, migraine, sinus infection, doubt SAH given gradual onset, doubt infection no fevers or meningeal signs Lab Data [facility] Lab Attestation statement: I reviewed the patient's lab results. Labs: Lab Results 04/19/23 04/19/23 Range/Units 16:10 16:10 Urine Color Yellow Urine Appearance Cloudy Urine pH 7.0 (5.0-9.0) Ur Specific Warren >= 1.030 H (1.005-1.025) Urine Protein Negative (Neg-Trace) mg/dL Urine Glucose (UA) Negative (Negative) mg/dL Urine Ketones Negative (Negative) mg/dL Urine Blood Moderate (2+) H (Negative) Urine Nitrite Negative (Negative) Ur Leukocyte Esterase Negative (Negative) Urine RBC 3-5 H (0-2) /HPF Urine WBC 6-10 H (0-5) /HPF Ur Squamous Epith Cells 11-20 (0-2) /HPF Urine Bacteria 1+ (None Seen) Hyaline Casts 0-2 (0-2) /LPF Urine Test NEGATIVE (NEGATIVE) Independent Interpretation I performed an independent interpretation of an: CT Scan Interpretation: no mass noted, no ICH Radiology Impression Discussion of test interpretation with radiology: I have reviewed the radiologist's reading. External Record Review External record reviewed: Inpatient record and Prior outpatient labs Prescription Management I considered prescription management with: Other (zofran and flexeril) Discharge Plan Discharge Clinical Impression: Migraine Qualifiers: Migraine type: unspecified Status migrainosus presence: without status migrainosus Intractability: not intractable Qualified Code(s): G43.909 - Migraine, unspecified, not intractable, without status migrainosus Patient Disposition: Home, Self-Care Instructions: Migraine Headache (ED) Additional Instructions: for worsening symptoms, severe pain, numbness, weakness, loss of vision, fevers, or any other concerns. CT scan was normal, negative test Prescriptions: New cyclobenzaprine 10 mg tablet 10 mg PO TID PRN (Reason: muscle spasm) Qty: 14 0RF ondansetron 4 mg tablet,disintegrating 4 mg PO Q8H PRN (Reason: nausea and vomiting) Qty: 20 0RF No Action Nexplanon 68 mg implant subdermal Stand Alone Forms: Work/School Release
[2023-04-19 12:40] VITALS: BP 141/84; PULSE 62; RESP 18; TEMP 36.3; O2SAT 100; BMI 44.6
[2023-04-19 15:10] VITALS: BP 127/80; PULSE 65; RESP 16; TEMP 36.9; O2SAT 100
--- NOTE | 2023-04-19 15:21 | PC.NURSE ---
Pt stated she took 4 ibuprofen before coming to hospital, couldn't remember the dose but stated they were the small pills.
[2023-04-19 16:27] LABS: Appearance Urine Cloudy; Color Urine Yellow; Glucose Urine UA Negative (Negative); Leukocyte Esterase Urine Negative (Negative); Nitrite Urine Negative (Negative); Specific Gravity - Urine >= 1.030 (1.005-1.025); UMIC TRIGGER UACC YES; Urine Blood Moderate (2+) (Negative); Urine Ketones Negative (Negative); Urine Protein Negative (Neg-Trace)
[2023-04-19 16:28] LABS: UPreg QC Valid YES; Urine Pregnancy NEGATIVE (NEGATIVE)
[2023-04-19 16:39] LABS: Bacteria Urine 1+ (None Seen); Hyaline Casts Urine 0-2 /LPF (0-2); UACC Culture Trigger YES
--- NOTE | 2023-04-19 17:35 | PC.NURSE ---
Medication administered late due to IV access.
--- NOTE | 2023-04-19 17:39 | PC.NURSE ---
difficult to obtain IV access one has been established in L hand
[2023-04-19] MEDS: diphenhydrAMINE HCL 50 MG/ML VIAL 25 MG IVPUSH (17:50)
[2023-04-19] MEDS: Ketorolac Tromethamine 15 MG/ML VIAL IVPUSH (17:50)
[2023-04-19] MEDS: Metoclopramide HCl 10 MG/2 ML VIAL IVPUSH (17:50)
[2023-04-19] MEDS: 0.9 % Sodium Chloride 1,000 ML 999 ML IV (17:50)
--- NOTE | 2023-04-19 17:57 | PC.NURSE ---
Medication administered late due to difficult IV access. provide made aware.
[2023-04-19 18:47] VITALS: BP 108/62; PULSE 60; RESP 16; TEMP 36.8; O2SAT 99
== END 2023-04-19 18:55 | disposition home or self-care (01) ==
PROVIDERS: Nurse Practitioner Family; Emergency Provider Emergency Medicine; PCP Pediatrics
DX: G43.909 Migraine, unspecified, not intractable, without status migrainosus (principal); E66.9 Obesity, unspecified; Z68.41 Body mass index [BMI] 40.0-44.9, adult
CPT/HCPCS: 70450; 81001; 81025; 87086; 96374; 96375; 99284; 99285; J1200; J1885; J2765

== ENCOUNTER 2023-06-27 12:39 | Outpatient (AMB) | payer MEDICAID, SELFPAY ==
--- NOTE | 2023-06-27 12:46 | MHC.OFFVIS ---
Intake Vital Signs 06/27/23 12:48 Height 5 ft 3 in Weight 251 lb 5.231 oz BMI 44.5 BP 116/78 Intake Visit Reasons: Kyleena insertion/Nexplanon Removal/45 min Intake Note: The patient agreed to use of a medical records auditor during this encounter. Scribed for TASHI Esteves by Crystal Youssef medical records auditor, on 06/27/2023 at 12:58 pm EST. Inside Sales Person Required: No Information Interpreted: non-clinical & clinical Tray Setter: Tray Setter Present (Erendira NAVAS) Accompanied by: Self / Same As Patient Allergies cinnamon [CINNAMON] Allergy (Severe, Verified 06/27/23 12:48) ANAPHYLAXIS sweet potato [SWEET POTATO] Allergy (Severe, Verified 06/27/23 12:48) ANAPHYLAXIS Is last menstrual period known: No (nexplanon) HPI HPI Comments History of Present Illness Details She is here for Nexplanon removal and Kyleena IUD insertion. See procedure note. [facility] Medical History control counseling Obesity Anxiety attack Surgical History History of tonsillectomy and adenoidectomy Family History Mother Cervical cancer Maternal Uncle Diabetes mellitus CVD (cardiovascular disease) Maternal Aunt Ovarian cancer Social History Alcohol intake: never Patient Tobacco Use Status: Never used Tobacco Sexual orientation: Straight/Heterosexual Gender identity: Female Female Reproductive History Menstrual Age of Menarche: 8 control method: progestin IUCD (Kyleena 06/27/23) Physical Exam Vital Signs: Last Vital Signs BP 116/78 06/27/23 12:48 BMI result Body Mass Index 44.5 Const General: cooperative, healthy appearing, comfortable, no acute distress, well developed, alert and awake Other: General: Yes bladder normal to palpation External Female Exam: normal external appearance and normal appearance of the urethra Speculum Exam - Vagina: normal appearance of the vagina, normal palpation and normal vaginal discharge Speculum Exam - Cervix: normal appearance of the cervix, normal palpation and Other cervical findings present (IUD strings visible) Bimanual exam- vagina & uterus: normal bimanual exam, normal palpation, bladder normal to palpation and normal palpation Bimanual Exam- Adnexa, other: normal adnexae and no masses Extrem General: Yes normal to inspection and Yes full ROM Left upper extremity: normal to inspection (implant and intact) and full ROM Office Procedures IUD Insert/Removal Details 58514-MEN Insertion Procedure code (CPT) selection complete Contraception Insert/Removal Details Details: HPI She was counseled and now consented as to the risks and benefits including: bleeding, pain, scarring, nerve damage and infection. Patient agrees to proceed with the procedure. Procedure The patient was placed in a supine position with her non dominant left hand resting under her head. The insertion site was located: 8-10cm from the medial epicondyle notch of the humerus, posterior to the sulcus, between the triceps and biceps muscle. The area of the previous implant was identified and the distal tip located. This area was cleansed with an alcohol prep and 3 ml of 1% Lidocaine on a 25 gauge needle and syringe was utilized for adequate anesthesia to the insertion site. After ascertaining adequate anesthesia, the area was prepped with Betadine solution. The skin over the distal tip was incised with a #11 blade scalpel and the capsule was located and entered freeing the implant from the canal. The implant was grasped and removed intact. Direct pressure was applied to the insertion site for hemostasis, minimal bleeding was observed. Steri strips, Tegaderm covering, gauze pads, and Elfego wrap dressing were secured with paper tape. The patient tolerated the procedure well and left the office in good condition. Nexplanon removed without complication today. Plan Instructed to leave steri-strips in place for 3-5 days and gauze and bandage for 24 hours to help prevent infection. She can take Tylenol or ibuprofen for pain prn. She was instructed to go to ER if she experiences any increased pain, fever, redness, pus or drainage or flu like sx. Leave steri-strips in place for 3-5 days and gauze and bandage for 24 hours to help prevent infection. Can take Tylenol or ibuprofen for pain prn. Go to ER if she experiences any pain, fever, redness, or [place] like [place]. 47706 - Removal IUD Insert/Removal Details Details: HPI The patient is here today for a Kyleena IUD insertion. She denies any contraindication to the device including: or suspected , unexplained uterine bleeding, known or suspected uterine or cervical cancer, breast cancer now and in the past, history of VTE, PID, recent pelvic infections in the last 3 months, liver disease, allergies to the product, multiple sex partners or partners with multiple partners. She was counseled on the side effects including: menstrual cycle changes, pain, infection, bleeding, or expulsion. Complications of the device can include: , perforation, injury to tissue including uterus, tubes, ovaries, bowel and bladder, migration of the device requiring: Xray, MRI or CT scan and surgical removal, pain, scarring. infection, PID, and excessive bleeding. (Use of a hormonal IUD may include risks for: headaches, skin and hair changes, missed or light menses, breast tenderness, headaches, increase of ovarian cysts, mood changes, vaginal discharge or irritation.) She was consented for the IUD insertion and has signed the consent form. All questions were answered. A urine test was completed and was negative. She denies any risks to today, including unprotected sex in the last two weeks. IUD Procedure The patient was placed in the dorsal lithotomy position and a sterile speculum was inserted. The procedure was completed under aseptic technique. The cervix was cleansed with a Betadine solution x 3 swabs. A single toothed tenaculum was applied to the cervix for stabilization, and the uterus was sounded to 9 cm. The device was inserted and released with a gentle motion. Bleeding from the tenaculum sites and the procedure were minimal. The strings were trimmed to 3cm. All of the equipment was removed and the bimanual was normal, no tip or strings were palpable at the cervical os. The patient tolerated the procedure well and left the office in good condition. Kyleena IUD inserted today with no complications. Plan Advised use condoms always for STD prevention. Back up method was explained if needed. No unprotected coitus for 7 days. She was advised to take Motrin 600mg QID with food prn for cramping. Menses will adjust. Bleeding will tend to taper down, some women do not bleed at all for months, some it is unscheduled and random Warnings reviewed with patient. Instructions given to call if temp >100.4, flu like sx, SOB, fatigue, lightheadedness/dizziness, abd pain, bloating or abd distention, bowel changes including rectal bleeding, bladder changes, foul odor or heavy vaginal bleeding. Call office with any questions or concerns. Return in 4-6 weeks for IUD check. 21189-RON Insertion Procedure code (CPT) selection complete Office Meds Kyleena 17.5 mcg/24 hrs (5yrs) 19.5mg intrauterine device Performing Provider: Maura Ramirez CNM Performing Location: [facility] [place] [facility] Administered by: Erendira Taylor CMA on 06/27/23 13:25 Dose Route Admin Location Dispensed Lot Number Expiration Date [facility] [employer] Machine Setter/Set Up Operator 1 device intrauterine 1 device [id number] 09/14/25 31220-727-70 [employer] Results AMB Test Urine AMB Test Urine Negative Last Edit by Erendira Taylor CMA on 06/27/23 12:58 Results Reviewed Results Reviewed: Laboratory Last Values [facility] Negative 06/27/23 12:57 Assessment & Plan Assessment & Plan (1) Nexplanon removal: Code(s): Z30.46 - Encounter for surveillance of implantable subdermal contraceptive Plan: See procedure note. (2) Encounter for IUD insertion: Code(s): Z30.430 - Encounter for insertion of intrauterine contraceptive device Plan: See procedure note. Orders: Orders AMB HCG Urine Test Today Z32.02 - Encounter for test, result negative AMB IUD Insertion/Removal - Practice Supplied Today Z30.430 - Encounter for insertion of intrauterine contraceptive device Coding Level of Care Code Procedure Only Diagnoses Nexplanon removal Z30.46 Encounter for IUD insertion Z30.430 CPT Codes Details - CPT: 91848-PXN Insertion ([id number]) Details - Contraception: 66809 - Removal ([id number]) Details - CPT: 05691-ZWM Insertion ([id number]) Comment Double procedure, IUD insert and Nexplanon rem.
[2023-06-27 12:48] VITALS: BP 116/78; BMI 44.5
== END 2023-06-27 13:27 | disposition home or self-care (01) ==
PROVIDERS: PCP Pediatrics; Visit Provider Advanced Practice Midwife
DX: Z30.430 Encounter for insertion of intrauterine contraceptive device (principal); Z32.02 Encounter for pregnancy test, result negative; Z30.46 Encounter for surveillance of implantable subdermal contraceptive
CPT/HCPCS: 11982; 58300

== ENCOUNTER → 2023-06-27 12:39 | Outpatient (BNVA) | payer MEDICAID, SELFPAY | PROVIDERS: PCP Pediatrics; Visit Provider Advanced Practice Midwife | DX: Z30.46 Encounter for surveillance of implantable subdermal contraceptive (principal); Z30.430 Encounter for insertion of intrauterine contraceptive device | CPT/HCPCS: 11982; 58300; 81025; J7296 ==

== ENCOUNTER 2023-07-25 11:29 | Outpatient (AMB) | payer MEDICAID, SELFPAY ==
[2023-07-25 11:32] VITALS: BP 100/56; BMI 45.0
--- NOTE | 2023-07-25 11:32 | MHC.OFFVIS ---
Intake Vital Signs 07/25/23 11:32 Height 5 ft 3 in Weight 254 lb BMI 45.0 BP 100/56 L Intake Visit Reasons: IUD Check Intake Note: The patient agreed to use of a medical and scientific illustrator during this encounter. Scribed for TASHI Esteves by Staci Wu medical and scientific illustrator, on 07/25/2023 at 11:50 am EST Director Of Food And Nutrition Services Required: No Information Interpreted: non-clinical & clinical Hoop Punch And Coiler Operator: Hoop Punch And Coiler Operator Present (Aidyn) Allergies cinnamon [CINNAMON] Allergy (Severe, Verified 07/25/23 11:41) ANAPHYLAXIS sweet potato [SWEET POTATO] Allergy (Severe, Verified 07/25/23 11:41) ANAPHYLAXIS Post menopausal: No Patient : No HPI HPI Comments History of Present Illness Details She is presenting for IUD check. She had the Kyleena IUD placed on 06/27/23. She reports bleeding for 3 weeks after insertion, improved. She feels less bloated with IUD. She denies pain, abnormal discharge, or other concerns. [facility] Medical History control counseling Obesity Anxiety attack Surgical History History of tonsillectomy and adenoidectomy Family History Mother Cervical cancer Maternal Uncle Diabetes mellitus CVD (cardiovascular disease) Maternal Aunt Ovarian cancer Social History Alcohol intake: never Patient Tobacco Use Status: Never used Tobacco Patient : No Sexual orientation: Straight/Heterosexual Gender identity: Female Female Reproductive History Menstrual Age of Menarche: 8 control method: progestin IUCD (Kyleena 06/2023) Date of last pap smear: 03/08/21 (negative) History of abnormal pap smear: No Review of Systems Const All systems reviewed & are unremarkable except as noted in HPI and below Physical Exam Vital Signs: Last Vital Signs BP 100/56 L 07/25/23 11:32 BMI result Body Mass Index 45.0 Const General: cooperative, no acute distress, well developed and alert External Female Exam: normal external appearance Speculum Exam - Vagina: normal appearance of the vagina Speculum Exam - Cervix: normal appearance of the cervix (IUD strings visible) Bimanual exam- vagina & uterus: normal bimanual exam, uterine size normal, uterine shape normal and non-tender Bimanual Exam- Adnexa, other: normal adnexae and no masses Results AMB Test Urine AMB Test Urine Negative Last Edit by YOSEF Medeiros on 07/25/23 11:43 Results Reviewed Results Reviewed: Laboratory Last Values [facility] Clinic Negative 07/25/23 11:43 Assessment & Plan Assessment & Plan (1) IUD check up: Code(s): Z30.431 - Encounter for routine checking of intrauterine contraceptive device Plan: Bleeding tends to taper down, some women do not bleed at all for months, some have unscheduled and random bleeding. Monitor bleeding and cramps for the next 1-2 months and contact office with any concerns or questions. Orders: Orders AMB HCG Urine Test Today Z32.02 - Encounter for test, result negative Coding Level of Care Code Est Pt Level 2 (81632) Diagnoses IUD check up Z30.431
== END 2023-07-25 11:54 | disposition home or self-care (01) ==
PROVIDERS: PCP Pediatrics; Visit Provider Advanced Practice Midwife
DX: Z30.431 Encounter for routine checking of intrauterine contraceptive device (principal); Z32.02 Encounter for pregnancy test, result negative
CPT/HCPCS: 99212

== ENCOUNTER → 2023-07-25 11:29 | Outpatient (BNVA) | payer MEDICAID, SELFPAY | PROVIDERS: PCP Pediatrics; Visit Provider Advanced Practice Midwife | DX: Z30.431 Encounter for routine checking of intrauterine contraceptive device (principal) | CPT/HCPCS: 81025; 99212 ==

== ENCOUNTER 2023-07-30 11:32 | Outpatient (REF) | payer MEDICAID, SELFPAY ==
[2023-07-30 12:18] LABS: Influenza A PCR NEGATIVE (Negative); Influenza B PCR NEGATIVE (Negative); Resp Syncy Virus RNA Qual PCR POSITIVE (Negative); SARS COV2 PCR INHOUSE NEGATIVE (Negative)
== END 2023-07-30 11:33 | disposition home or self-care (01) ==
LOC: HO.HHCLNP 11:32
PROVIDERS: Visit Provider Internal Medicine
DX: Z11.52 Encounter for screening for COVID-19 (principal); R05.9 Cough, unspecified
CPT/HCPCS: 0241U; 87070

== ENCOUNTER 2023-08-18 09:30 | Outpatient (AMB) | payer MEDICAID, SELFPAY ==
--- NOTE | 2023-08-18 09:37 | MHC.OFFVIS ---
Intake Vital Signs 08/18/23 09:38 Height 5 ft 3 in Weight 254 lb BMI 45.0 BP 120/86 Intake Visit Reasons: IUD check Intake Note: Was having intercourse and partner felt IUD and the next day she started having cramps and when she wiped in the bathroom toilet paper was full of blood she would like to check if IUD is in position. Special Education Case Manager Required: No Information Interpreted: non-clinical & clinical Lead Shipper: Lead Shipper Present (Aidyn) Allergies cinnamon [CINNAMON] Allergy (Severe, Verified 08/18/23 09:43) ANAPHYLAXIS sweet potato [SWEET POTATO] Allergy (Severe, Verified 08/18/23 09:43) ANAPHYLAXIS Medication List - Last Reconciled 08/18/23 by Terri Hodges CNM cyclobenzaprine 10 mg PO TID PRN levonorgestrel (Kyleena) intrauterine ondansetron 4 mg PO Q8H PRN Post menopausal: No HPI IUD check HPI Details Patient is here for an IUD checkup she had the Nexplanon for 3 years and she felt she was gaining weight with it so she decided to have it removed and have the Kyleena placed instead. Patient had a Kyleena placed by Maura Ramirez on 06/24/2023. She said she started bleeding the next day and bled for 2 weeks then on July 25 she got what she thought was another. That also lasted 2 weeks. On July 29 she was seen at [facility] and was diagnosed with RSV and a sinus infection and was started on 2 week course of amoxicillin and........................ Last week on Friday she had sex and she said her partner could feel it and it was uncomfortable and then she had bright red bleeding afterwards that did go way and she has had sex pretty much every day since with no problems. She did not think it came out, but she is scared that it might have and now she is worried about since I have raised the possibility of it come in out in the question. [facility] Medical History control counseling Obesity Anxiety attack Surgical History History of tonsillectomy and adenoidectomy Family History Mother Cervical cancer Maternal Uncle Diabetes mellitus CVD (cardiovascular disease) Maternal Aunt Ovarian cancer Social History Alcohol intake: never Patient Tobacco Use Status: Never used Tobacco Sexual orientation: Straight/Heterosexual Gender identity: Female Female Reproductive History Menstrual Age of Menarche: 8 control method: progestin IUCD Total pregnancies: 2 Full term: 2 Number of Living Children: 2 Date of last pap smear: 03/08/21 (negative) Physical Exam Other: Pockets of yellowish and clear fluid in vagina cervix appears multiparous pink smooth shiny no visible or palpable string or IUD. External Female Exam: normal external appearance Speculum Exam - Vagina: normal appearance of the vagina and normal vaginal discharge Speculum Exam - Cervix: normal appearance of the cervix Bimanual exam- vagina & uterus: normal bimanual exam, uterine size normal, consistency normal, uterine mobility normal, uterine shape normal and non-tender Bimanual Exam- Adnexa, other: normal adnexae, no masses and No adnexal tenderness Assessment & Plan Assessment & Plan (1) control counseling: Code(s): Z30.09 - Encounter for other general counseling and advice on contraception (2) Obesity: Code(s): E66.9 - Obesity, unspecified Qualifiers: Obesity type: unspecified obesity type Obesity classification: adult class 3 (BMI >= 40) Serious obesity comorbidity presence: unspecified whether serious comorbidity present Body mass index: BMI 40.0-44.9 Qualified Code(s): E66.01 - Morbid (severe) obesity due to excess calories; Z68.41 - Body mass index [BMI]40.0-44.9, adult (3) IUD strings lost: Code(s): T83.32XA - Displacement of intrauterine contraceptive device, initial encounter Plan Discussed plan for ascertaining whether not the IUD is still in place. Will get an ultrasound and I have ordered it urgently and she and I will have a visit afterwards to review it. I recommend absolutely no unprotected sex from this point forward until it is known whether not the IUD is in there and in the right spot. It would be too late for Plan B but also too soon to do a test. Discussed what would she want to do if the IUD had either fallen out or if it was not in the right position. She said that she would rather go back to the Nexplanon even though she had it removed because of weight gain. Discussed making a plan to work on weight loss so that either way she works on her health. I will see her after the ultrasound. Orders: Orders US pelvic and transvaginal Today E66.9 - Obesity, unspecified, T83.32XA - Displacement of intrauterine contraceptive device, initial encounter, Z30.09 - Encounter for other general counseling and advice on contraception Coding Level of Care Code Est Pt Level 3 (45724) Diagnoses control counseling Z30.09 Class 3 severe obesity with body mass index (BMI) of 40.0 to 44.9 in adult, unspecified obesity type, unspecified whether serious comorbidity present E66.01; Z68.41 Obesity type: unspecified obesity type Obesity classification: adult class 3 (BMI >= 40) Serious obesity comorbidity presence: unspecified whether serious comorbidity present Body mass index: BMI 40.0-44.9 IUD strings lost T83.32XA
[2023-08-18 09:38] VITALS: BP 120/86; BMI 45.0
== END 2023-08-18 10:19 | disposition home or self-care (01) ==
LOC: HO.HWS 09:31
PROVIDERS: PCP Pediatrics; Visit Provider Advanced Practice Midwife
DX: Z30.09 Encounter for other general counseling and advice on contraception (principal); E66.01 Morbid (severe) obesity due to excess calories; Z68.41 Body mass index [BMI] 40.0-44.9, adult; T83.32XA Displacement of intrauterine contraceptive device, initial encounter
CPT/HCPCS: 99213

== ENCOUNTER → 2023-08-18 09:30 | Outpatient (BNVA) | payer MEDICAID, SELFPAY | PROVIDERS: PCP Pediatrics; Visit Provider Advanced Practice Midwife | DX: Z30.09 Encounter for other general counseling and advice on contraception (principal); T83.32XA Displacement of intrauterine contraceptive device, initial encounter; E66.01 Morbid (severe) obesity due to excess calories; Z68.42 Body mass index [BMI] 45.0-49.9, adult | CPT/HCPCS: 99212 ==

== ENCOUNTER 2023-08-22 14:17 | Outpatient (REF) | payer MEDICAID, SELFPAY ==
--- NOTE | ~2023-08-22 | US_ITS ---
EXAMINATION: US PELVIS CLINICAL INFORMATION: Displace IUD COMPARISON: CT abdomen pelvis 01/12/2022 and ultrasound 04/25/2017. TECHNIQUE: Ultrasound of the pelvis is performed using both transabdominal and transvaginal transducers along with Doppler. Transvaginal imaging is performed due to inadequate visualization transabdominally. FINDINGS: Uterus: The uterus is anteverted and measures 10.3 x 4.8 x 6.7 cm. cm. The double wall endometrial thickness evaluation is limited secondary to an IUD within the endometrial canal in good position.. The uterus is smooth in contour and has normal myometrial echogenicity. No visible fibroid. Adnexa: Both ovaries are visualized. There is normal color flow to the adnexa. There is no ovarian torsion. There is no pelvic ascites or fluid collection. Right ovary measures 2.8 x 2.3 x 2.1 CM and volume 7.3 mL. It appears unremarkable. Previously it measured 3.0 x 1.8 x 2.5 cm and volume 7.2 mL. Left ovary measures 4.3 x 3.5 x 3.9 cm and volume 30.4 mL. There is a complex septated cyst measuring 3.7 x 3.8 x 3.5 cm. There is likely hemorrhagic cyst. There is no free fluid in cul-de-sac. US/US pelvic and transvaginal IMPRESSION: 1. Complex septated cyst left ovary likely hemorrhagic cyst. 2. The right ovary is unremarkable. 3. IUD is in correct position within the endometrial canal. The uterus is unremarkable. 4. There is no free fluid in the cul-de-sac.
== END 2023-08-22 14:18 | disposition home or self-care (01) ==
LOC: HO.HMGCX 14:17
PROVIDERS: Visit Provider Advanced Practice Midwife
DX: E66.9 Obesity, unspecified (principal); T83.32XA Displacement of intrauterine contraceptive device, initial encounter
CPT/HCPCS: 76830; 76856

== ENCOUNTER 2023-08-26 14:40 | Outpatient (AMB) | payer MEDICAID, SELFPAY ==
--- NOTE | 2023-08-26 14:40 | A.OFFVIS_ITS ---
Intake Intake Visit Reasons: TV follow up US Mechanical Oxidizer Required: No Information Interpreted: non-clinical & clinical Allergies cinnamon [CINNAMON] Allergy (Severe, Verified 08/26/23 14:40) ANAPHYLAXIS sweet potato [SWEET POTATO] Allergy (Severe, Verified 08/26/23 14:40) ANAPHYLAXIS HPI TV follow up US HPI Details This is a tele visit to discuss patient's ultrasound results which were evaluated to determine if the IUD was in place. [facility] Medical History control counseling Obesity Anxiety attack Surgical History History of tonsillectomy and adenoidectomy Family History Mother Cervical cancer Maternal Uncle Diabetes mellitus CVD (cardiovascular disease) Maternal Aunt Ovarian cancer Social History Alcohol intake: never Patient Tobacco Use Status: Never used Tobacco Sexual orientation: Straight/Heterosexual Gender identity: Female Female Reproductive History Menstrual Age of Menarche: 8 Results Reviewed Results Reviewed[place] [facility] [place] [facility] [place] [address] Ultrasound Report Signed Patient: Summer Sandoval MR#: [id number] : 2000 Acct:[id number] Age/Sex: 23 / F ADM Date: 08/22/23 Loc: HO.[email or web address] Attending Dr: Terri Hodges CNM Ordering Physician: Terri Hodges CNM Date of Service: 08/22/23 Procedure(s): US pelvic and transvaginal Accession Number(s): [id number] cc: Terri Hodges CNM~ EXAMINATION: US PELVIS CLINICAL INFORMATION: Displace IUD COMPARISON: CT abdomen pelvis 01/12/2022 and ultrasound 04/25/2017. TECHNIQUE: Ultrasound of the pelvis is performed using both transabdominal and transvaginal transducers along with Doppler. Transvaginal imaging is performed due to inadequate visualization transabdominally. FINDINGS: Uterus: The uterus is anteverted and measures 10.3 x 4.8 x 6.7 cm. cm. The double wall endometrial thickness evaluation is limited secondary to an IUD within the endometrial canal in good position.. The uterus is smooth in contour and has normal myometrial echogenicity. No visible fibroid. Adnexa: Both ovaries are visualized. There is normal color flow to the adnexa. There is no ovarian torsion. There is no pelvic ascites or fluid collection. Right ovary measures 2.8 x 2.3 x 2.1 CM and volume 7.3 mL. It appears unremarkable. Previously it measured 3.0 x 1.8 x 2.5 cm and volume 7.2 mL. Left ovary measures 4.3 x 3.5 x 3.9 cm and volume 30.4 mL. There is a complex septated cyst measuring 3.7 x 3.8 x 3.5 cm. There is likely hemorrhagic cyst. There is no free fluid in cul-de-sac. US/US pelvic and transvaginal IMPRESSION: 1. Complex septated cyst left ovary likely hemorrhagic cyst. 2. The right ovary is unremarkable. 3. IUD is in correct position within the endometrial canal. The uterus is unremarkable. 4. There is no free fluid in the cul-de-sac. Dictated By: Monico Brown MD Signed By: <Electronically signed by Monico Brown MD in OV> 08/22/23 1606 DD/ 1503 TD/TT: Saturator Tender: REKHA Assessment & Plan Assessment & Plan (1) IUD strings lost: Code(s): T83.32XA - Displacement of intrauterine contraceptive device, initial encounter (2) control counseling: Code(s): Z30.09 - Encounter for other general counseling and advice on contraception (3) Hemorrhagic cyst of ovary: Code(s): N83.209 - Unspecified ovarian cyst, unspecified side (4) IUD (intrauterine device) in place: Code(s): Z97.5 - Presence of (intrauterine) contraceptive device Plan I reviewed the ultrasound with her in detail. I recommend she keep track of her periods and also keep track of any pattern of pain that she gets she does sometimes have pain on the side where the hemorrhagic cyst was noted discussed that it is not likely to be a problem, but to call if she ever did get severe pain or anything. She can resume sexual intercourse. We will see her for regularly scheduled appointments Telehealth Telehealth Location of provider rendering services: practice address Location of patient: address on file Patient Identification confirmed using: Name, : Yes Telehealth method: voice only Patient verbally consented to treatment: Yes Patient verbally consented to billing insurance company: Yes Patient informed of any privacy concerns related to visit: Yes Coding Level of Care Code Tele Est Pt Level 3 (32570) Diagnoses IUD strings lost T83.32XA control counseling Z30.09 Hemorrhagic cyst of ovary N83.209 IUD (intrauterine device) in place Z97.5 Time Spent (min) 20 Comment 3 cr/ 12 speaking w pt/ 5 charting
== END 2023-08-26 15:35 | disposition home or self-care (01) ==
LOC: HO.HWSM 14:40
PROVIDERS: PCP Pediatrics; Visit Provider Advanced Practice Midwife
DX: T83.32XA Displacement of intrauterine contraceptive device, initial encounter (principal); Z30.09 Encounter for other general counseling and advice on contraception; N83.209 Unspecified ovarian cyst, unspecified side; Z97.5 Presence of (intrauterine) contraceptive device
CPT/HCPCS: 99213

== ENCOUNTER → 2023-08-26 14:40 | Outpatient (BNVA) | payer MEDICAID, SELFPAY | PROVIDERS: PCP Pediatrics; Visit Provider Advanced Practice Midwife ==

== ENCOUNTER 2023-11-11 14:50 | Outpatient (REF) | payer MEDICAID, SELFPAY ==
[2023-11-11 16:26] LABS: Hematocrit 40.7 % (37.0-47.0); Hemoglobin 14.2 g/dl (12.0-16.0); Mean Corpuscular HGB Conc 34.9 g/dl (31.0-35.0); Mean Corpuscular Hemoglobin 27.5 pg (27.0-33.0); Mean Corpuscular Volume 78.7 fL (80.0-98.0); Mean Platelet Volume 9.5 fL (9.4-12.3); Platelet Count 288 X10*3/uL (160-400); Red Blood Count 5.17 X10*6/uL (4.20-5.50); Red Cell Distribution Width 12.4 % (11.0-16.0); White Blood Count 8.4 X10*3/uL (4.8-10.8)
[2023-11-11 16:35] LABS: Estimated Average Glucose 108 mg/dL; Hemoglobin A1c % 5.4 % (<6.0)
[2023-11-11 17:00] LABS: Alanine Aminotransferase 39 U/L (0-31); Albumin Level 4.2 g/dL (3.5-5.0); Alkaline Phosphatase 68 U/L (39-117); Anion Gap 14 (12-20); Aspartate Amino Transferase 25 U/L (5-31); Bilirubin Total 0.5 mg/dL (0.0-1.0); Blood Urea Nitrogen 8 mg/dL (9-16); Calcium 9.6 mg/dL (8.4-10.2); Carbon Dioxide 23 mmol/L (22-29); Chloride 107 mmol/L (96-108); Cholesterol 106 mg/dL (<200); Estimated Glomerular Filt Rate > 60; Glucose Random 80 mg/dL (60-115); HDL Cholesterol 32 mg/dL (>40); LDL Cholesterol Calculated 55 mg/dL (<100); Potassium 3.5 mmol/L (3.3-5.1); Sodium 140 mmol/L (135-145); Total Protein 7.3 g/dL (6.5-8.0); Triglycerides 96 mg/dL (<150)
[2023-11-11 17:16] LABS: TSH reflex Free T4 0.91 uIU/mL (0.32-4.0)
[2023-11-11 17:30] LABS: Folate 8.4 ng/mL (> or = 4.0)
[2023-11-12 08:27] LABS: HBS Num1 0.93 mIU/mL (0-7.99); HBc Num1 0.22 S/CO (0.00-0.79); HBsAGNum1 0.43 S/CO (0.00-0.99); HIV AB/AG Nonreactive (Nonreactive); HIV Num 1 0.06 S/CO (0.00-0.99); Hepatitis B Core Antibody Nonreactive (Nonreactive); Hepatitis B Surface Antigen Negative (Negative); ~HepC Num1 0.15 S/CO (0.00-0.79); ~Hepatitis B Surface Antibody NONREACTIVE (Nonreactive); ~Hepatitis C Antibody Nonreactive (Nonreactive)
[2023-11-12 08:43] LABS: Syphilis Screen Nonreactive (Nonreactive)
[2023-11-12 11:56] LABS: CT PCR NOT DETECTED (Not Detect.); NG PCR NOT DETECTED (Not Detect.)
[2023-11-12 14:45] LABS: Vitamin B12 163 pg/mL (200-900)
[2023-11-13 21:54] LABS: TS Negative Control Passed; TS Panel A 0; TS Panel B 0; TS Positive Control Passed; TSpotTB Negative (Negative)
== END 2023-11-11 14:51 | disposition home or self-care (01) ==
LOC: HO.HHCL 14:50
PROVIDERS: Visit Provider Student in an Organized Health Care Education/Training Program
DX: Z00.00 Encounter for general adult medical examination without abnormal findings (principal)
CPT/HCPCS: 0353U; 36415; 80053; 80061; 82607; 82746; 83036; 84443; 85027; 86481; 86704; 86706; 86780; 86803; 87340; 87389

== ENCOUNTER 2023-11-12 15:00 | Outpatient (REF) | payer MEDICAID, SELFPAY ==
[2023-11-15 15:42] LABS: TS Negative Control Passed; TS Panel A 2; TS Panel B 2; TS Positive Control Passed; TSpotTB Negative (Negative)
== END 2023-11-12 15:01 | disposition home or self-care (01) ==
LOC: HO.HHCL 15:00
PROVIDERS: Visit Provider Student in an Organized Health Care Education/Training Program
DX: Z00.00 Encounter for general adult medical examination without abnormal findings (principal)
CPT/HCPCS: 36415; 86481

== ENCOUNTER 2024-01-21 13:57 | Outpatient (AMB) | payer MEDICAID, SELFPAY ==
[2024-01-21 14:08] VITALS: BP 100/62; BMI 42.0
--- NOTE | 2024-01-21 14:08 | MHC.OFFVIS ---
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 Doing well with no concerns. She tries to eat healthy and losing weight, and stays active with walking at work. Regular monthly menses with Kyleena. Currently is sexually active. She denies vaginal itching and irritation. STI screening offered; she accepts. She declines lab work. Denies family history of breast, ovarian or colon cancer. Last pap smear 2020, negative. [facility] Medical History (Updated 01/21/24 @ 14:18 by Maura Ramirez CNM) Encounter for well woman exam with routine gynecological exam control counseling Obesity Anxiety attack Surgical History History of tonsillectomy and adenoidectomy Family History (Updated 01/21/24 @ 14:33 by Maura Ramirez CNM) Mother Cervical cancer Maternal Uncle Diabetes mellitus CVD (cardiovascular disease) Maternal Aunt Ovarian cancer Son Autism Social History Alcohol intake: never Patient Tobacco Use Status: Never used Tobacco Sexual orientation: Straight/Heterosexual Gender identity: Female Female Reproductive History Menstrual Age of Menarche: 8 Duration of menses: 3-5 days Date of last menstrual period: 12/21/23 control method: progestin IUCD (Kyleena 07/07) Total pregnancies: 2 Full term: 2 Number of Living Children: 2 Date of last pap smear: 03/07/21 (neg) Review of Systems Const All systems reviewed & are unremarkable except as noted in HPI and below Reports as per HPI Eyes Reports no additional complaints ENT Reports no additional complaints Card Reports no additional complaints Resp Reports no additional complaints GI Reports as per HPI and Reports no additional complaints Reports as per HPI Musc Reports no additional complaints Skin/Breast Reports as per HPI Neuro Reports no additional complaints Psych Reports no additional complaints Endo Reports no additional complaints Blayne/Lymph Reports no additional complaints Aller/Immun Reports no additional complaints Physical Exam Vital Signs: Last Vital Signs BP 100/62 01/21/24 14:08 BMI result Body Mass Index 42.0 Const General: cooperative, healthy appearing, no acute distress, well developed and alert Orientation/consciousness: patient oriented x3 HEENT Head: Yes normal to inspection Eyes General: appearance normal, both eyes and all related structures Neck Neck: Yes normal visual inspection Thyroid: Thyroid normal Chest Chest palpation & inspection: normal inspection of the chest and other (no puckering, dimpling, peau de orange, retraction, discharge, masses) Breast/axilla inspection: normal inspection of the breasts Breast/axilla palpation: normal palpation of the breasts Resp Effort & Inspection: normal respiratory effort GI Inspection: Yes normal to inspection and Yes obesity Palpation (GI): Soft to palpation Rectal Exam - Female: deferred General: Yes bladder normal to palpation External Female Exam: normal external appearance and normal appearance of the urethra Speculum Exam - Vagina: normal appearance of the vagina, normal palpation and normal vaginal discharge Speculum Exam - Cervix: normal appearance of the cervix, normal palpation and Other cervical findings present (IUD string present at os) Bimanual exam- vagina & uterus: normal bimanual exam, normal palpation, uterine size normal, bladder normal to palpation, normal palpation and non-tender Bimanual Exam- Adnexa, other: no masses Skin General skin exam: no rashes or lesions noted Rashes: no rashes Neuro General: patient oriented x3 Cognition (Neuro): normal cognition Extrem General: Yes normal to inspection Psych Attitude: cooperative Thought process: Normal thought process present Assessment & Plan Assessment & Plan (1) Encounter for well woman exam with routine gynecological exam: Code(s): Z01.419 - Encounter for gynecological examination (general) (routine) without abnormal findings Category: Medical Plan: Discussed: Current recommendations for pap smears per ASCCP guidelines. Breast awareness and periodic breast exams. Maintain a healthy lifestyle including a well balanced diet and routine exercise. Patient verbalizes understanding and agrees to the plan of care. She was given opportunity to ask questions and all questions were answered to the best of my ability. 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 This note is constructed using voice recognition software. While every effort has been made to ensure accuracy, sales support assistant errors may have been included. Orders: Orders CT NG by PCR Today Z20.2 - Contact with and (suspected) exposure to infections with a predominantly sexual mode of transmission Pap Smear Today Z01.419 - Encounter for gynecological examination (general) (routine) without abnormal findings Coding Level of Care Code Est Pt Prev Care 18-39y(15153) Diagnoses Encounter for well woman exam with routine gynecological exam Z01.419
== END 2024-01-21 14:38 | disposition home or self-care (01) ==
PROVIDERS: PCP Pediatrics; Visit Provider Advanced Practice Midwife
DX: Z01.419 Encounter for gynecological examination (general) (routine) without abnormal findings (principal)
CPT/HCPCS: 99395

== ENCOUNTER 2024-01-21 13:57 | Outpatient (REF) | payer MEDICAID, SELFPAY ==
[2024-01-22 06:55] LABS: CT PCR NOT DETECTED (Not Detect.); NG PCR NOT DETECTED (Not Detect.)
== END 2024-01-21 13:58 | disposition home or self-care (01) ==
LOC: HO.LNP 13:57
PROVIDERS: PCP Pediatrics; Visit Provider Advanced Practice Midwife
DX: Z01.419 Encounter for gynecological examination (general) (routine) without abnormal findings (principal); Z20.2 Contact with and (suspected) exposure to infections with a predominantly sexual mode of transmission
CPT/HCPCS: 0353U; 88142; 99395

== ENCOUNTER 2024-01-27 12:45 | Outpatient (AMB) | payer MEDICAID, SELFPAY ==
[2024-01-27 12:47] VITALS: BP 110/64; PULSE 60; BMI 41.8
--- NOTE | 2024-01-27 12:47 | A.OFFVIS_ITS ---
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 She does not have any history of cardiac issues like cardiomyopathy or anything else along those lines. She states that for the last few months, she has been falling down. She describes what appears to be probably orthostatic type dizziness but sometimes she also falls with the ground. No loss of consciousness. She is morbidly obese but she states she is lost about 20 lb or so in the last few months. Hence not clear if it is weight loss causing worsening orthostasis. During these episodes, she also feels like she can not breathe and then her heart is pounding. Possible reflex tachycardia. [facility] Medical History (Updated 01/27/24 @ 13:01 by Thom Washington MD) Encounter for well woman exam with routine gynecological exam control counseling Obesity Anxiety attack Surgical History History of tonsillectomy and adenoidectomy Family History Mother Cervical cancer Maternal Uncle Diabetes mellitus CVD (cardiovascular disease) Maternal Aunt Ovarian cancer Son Autism Social History Alcohol intake: never Patient Tobacco Use Status: Never used Tobacco Sexual orientation: Straight/Heterosexual Gender identity: Female Female Reproductive History Menstrual Age of Menarche: 8 Review of Systems Const Denies chills, Reports fatigue, Denies fever(s), Reports frequent falls, Reports weakness, Denies weight gain and Denies weight loss ENT Reports dizziness Card Reports chest pain, Denies leg edema, Reports lightheadedness, Reports palpitations, Reports dyspnea, Reports dyspnea on exertion and Reports orthopnea Resp Denies cough, Reports dyspnea and Reports dyspnea on exertion GI Denies bloating and Denies change in bowel habits Musc Denies muscle weakness, Denies numbness and Reports tingling Neuro Reports dizziness, Reports frequent falls, Denies numbness, Reports tingling and Reports weakness Endo Reports fatigue and Reports palpitations Physical Exam Vital Signs: Last Vital Signs Pulse 60 01/27/24 12:47 BP 110/64 01/27/24 12:47 BMI result Body Mass Index 41.8 Const General: comfortable and no acute distress Orientation/consciousness: patient oriented x3 HEENT Other: Unremarkable Head: Yes normal to inspection Neck Neck: Yes normal visual inspection Chest Chest palpation & inspection: normal inspection of the chest Resp Auscultation: clear to auscultation bilaterally Cardio Palpation: normal PMI Heart sounds: S1 normal heart sound present, S2 normal heart sound present, no gallops, no murmurs and no rubs GI Palpation (GI): Soft to palpation Back/Spine/Pelvis Other: unremarkable Skin General skin exam: no rashes or lesions noted Neuro General: patient oriented x3 Extrem General: Yes normal to inspection Psych Mental Status: mental status grossly normal Office Procedures EKG Details: EKG with sinus rhythm at 60/Min; no significant ST-T changes and otherwise unremarkable. [place]. [id number], Complete Assessment & Plan Assessment & Plan (1) Dizziness: Code(s): R42 - Dizziness and giddiness Category: Medical (2) Pre-syncope: Code(s): R55 - Syncope and collapse Category: Medical Plan Cardiac exam/baseline EKG unremarkable. Symptoms possibly from orthostatic hypotension but not definitive. As she lost about 20 lb of weight recently that might play a role. At least for the time being, advised her to liberalize salt and fluid intake. Will get comprehensive cardiac workup including an echocardiogram, 30 day monitor and tilt-table test. Follow-up after the above. Orders: Orders ECG 30 day event monitor Today R55 - Syncope and collapse CA echo transthoracic complete Today R55 - Syncope and collapse ECG Tilt Table Test Today R55 - Syncope and collapse Coding Level of Care Code New Pt Level 4 (56296) Diagnoses Dizziness R42 Pre-syncope R55 CPT Codes EKG - CPT: 63285-[id number], Complete ([id number])
== END 2024-01-27 13:11 | disposition home or self-care (01) ==
PROVIDERS: PCP Pediatrics; Referring Provider Pediatrics; Visit Provider Internal Medicine
DX: R42 Dizziness and giddiness (principal); R55 Syncope and collapse
CPT/HCPCS: 93010; 99204

== ENCOUNTER → 2024-01-27 12:45 | Outpatient (BNVA) | payer MEDICAID, SELFPAY | PROVIDERS: PCP Pediatrics; Visit Provider Internal Medicine | DX: R55 Syncope and collapse (principal); R42 Dizziness and giddiness | CPT/HCPCS: 93005; 99202 ==

== ENCOUNTER → 2024-01-30 11:11 | Outpatient (REF) | payer MEDICAID, SELFPAY ==
--- NOTE | 2024-01-30 11:15 | HM_ITS ---
* Total procedure length 30 days. Wear time 2.3 days. * Underlying rhythm is sinus with an average heart rate of 73/min. * Rare supraventricular ectopy. * No sustained arrhythmias. * No significant pauses or AV blocks. * Episode of feeling dizzy/lightheaded correlated with sinus tachycardia. MTDD
== END ==
LOC: HO.CARD 11:11
PROVIDERS: PCP Student in an Organized Health Care Education/Training Program; Visit Provider Internal Medicine
DX: R55 Syncope and collapse (principal)
CPT/HCPCS: 93270

== ENCOUNTER → 2024-01-30 11:15 | Outpatient (BNV) | payer MEDICAID, SELFPAY | PROVIDERS: PCP Student in an Organized Health Care Education/Training Program; Visit Provider Internal Medicine | DX: I47.10 Supraventricular tachycardia, unspecified (principal) | CPT/HCPCS: 93272 ==

== ENCOUNTER 2024-01-31 09:43 | Emergency (ER) | payer MEDICAID, SELFPAY ==
[2024-01-31 09:47] VITALS: BP 120/71; PULSE 58; RESP 18; TEMP 36.6; O2SAT 98; BMI 41.6
--- NOTE | 2024-01-31 11:04 | ED_ITS ---
HPI - General Adult General Chief complaint: General Medical Stated complaint: rash Time Seen by Provider: 01/31/24 11:04 Source: patient Mode of arrival: ambulatory Limitations: no limitations History of Present Illness ED Provider: Katrin Venegas NP HPI narrative: Patient is a 23-year-old female presenting to the emergency department requesting change of dressing over her Holter monitor. She reports that the dressing currently in places causing skin irritation and itching. She denies any shortness of breath, difficulty swallowing or difficulty breathing. Denies any other rashes. Cardiology office is not open on the weekend. MD complaint: reaction to dressing Onset (ago): day(s) Location: chest Quality: other (itching) Associated symptoms: denies other symptoms Treatments prior to arrival: none Related Data Home Medications ?Medication ?Instructions ?Recorded ?Confirmed levonorgestrel 17.5 mcg/24 hrs intrauterine 07/25/23 01/27/24 (5yrs) 19.5mg intrauterine device (Kyleena) Previous Rx's ?Medication ?Instructions ?Recorded cyclobenzaprine 10 mg tablet 10 mg PO TID PRN muscle spasm #14 04/19/23 tabs ondansetron 4 mg disintegrating 4 mg PO Q8H PRN nausea and 04/19/23 tablet vomiting #20 tabs Allergies Allergy/AdvReac Type Severity Reaction Status Date / Time cinnamon [CINNAMON] Allergy Severe ANAPHYLAXIS Verified 01/31/24 09:48 sweet potato [SWEET POTATO] Allergy Severe ANAPHYLAXIS Verified 01/31/24 09:48 Review of Systems Review of Systems: As per HPI. Yes all other systems are reviewed and are negative Constitutional: Constitutional: Reports as per HPI [facility] Past Medical History Medical History (Updated 01/31/24 @ 11:06 by Payal Venegas NP) Encounter for well woman exam with routine gynecological exam control counseling Obesity Anxiety attack Surgical History History of tonsillectomy and adenoidectomy Family History Family History Mother Cervical cancer Maternal Uncle Diabetes mellitus CVD (cardiovascular disease) Maternal Aunt Ovarian cancer Son Autism Social History Social History Alcohol intake: never Patient Tobacco Use Status: Never used Tobacco Sexual orientation: Straight/Heterosexual Gender identity: Female Physical Exam ED Vital Signs: Vital Signs - 24 hr 01/31/24 09:47 Temperature 98 F Pulse Rate 58 Respiratory Rate 18 Blood Pressure 120/71 Pulse Oximetry 98 Oxygen Delivery Method Room Air BMI result Body Mass Index 41.6 Vital signs have been reviewed and appear to be correct. Blood pressure normal. Heart rate normal. Respiratory rate normal. Temperature normal. Oxygen saturation normal. Const General: cooperative, healthy appearing and no acute distress Orientation/consciousness: oriented to person, oriented to place, oriented to time and patient oriented x3 Limitations: no limitations HENMT Head: Yes normocephalic and Yes atraumatic Ears: external ears normal General nose exam: Normal external nose present Face and sinus: Yes face symmetric Mouth: oropharynx normal and moist mucous membranes Throat: Yes uvula midline Eyes Pupils: Equal, round and reactive pupils present Neck Neck: Yes normal visual inspection and Yes supple Chest Chest palpation & inspection: other (Holter monitor to left chest, slight erythema noted under clear dressing) Resp Effort & Inspection: normal respiratory effort and able to speak in complete sentences Auscultation: clear to auscultation bilaterally Cardio Rate: regular rate Rhythm: regular rhythm Heart sounds: S1 normal heart sound present and S2 normal heart sound present GI Palpation (GI): Soft to palpation and nontender Auscultation: normoactive bowel sounds General: Yes no CVA tenderness Back/Spine/Pelvis Back: no CVA tenderness Skin General skin exam: elasticity normal and turgor normal Neuro General: oriented to person, oriented to place, oriented to time, patient oriented x3, moves all extremities, no focal motor deficits and CN's II-XI intact bilaterally Cranial nerves: Yes Equal, round and reactive pupils present Cognition (Neuro): normal cognition Extrem General: Yes full ROM, Yes no pedal edema and Yes no calf tenderness Psych Mental Status: mental status grossly normal Affect: normal affect Thought process: Normal thought process present Medical Decision Making Medical Decision Making MDM Narrative: Patient is a 23-year-old female presenting to the emergency department requesting change of dressing over her Holter monitor due to itching. On exam patient is awake, A+Ox3, VS WNL, afebrile, normal neurological exam without focal deficits, physical exam findings as above. Given reported symptoms and physical exam findings, initial differential includes allergic reaction to dressing. Discussed with patient that due to securement device for monitor being integral part of dressing, we are unable to change out her dressing here in the emergency department. Advised patient to use cetirizine or loratadine as needed for pruritus. Offered to send prescription for hydroxyzine but patient states she has adequate supply of antihistamine medication at home. Instructed patient to contact deicer repairer pneumatic office on Friday to discuss her options. Return precautions discussed at bedside. Patient verbalized understanding of and agreement with plan. Differential Diagnosis Differential Diagnoses: The differential diagnosis associated with the presentation includes allergic reaction to dressing External Record Review External record reviewed: Inpatient record, Office record and Outpatient record Prescription Management I considered prescription management with: Other Discharge Plan Discharge Clinical Impression: Rash and nonspecific skin eruption Patient Disposition: Home, Self-Care Additional Instructions: You were evaluated in the emergency department today for skin irritation related to dressing securing your quality assurance monitor body. We were unable to change this dressing in the emergency department. Please follow-up with your deicer repairer pneumatic on Friday to find out if there is another option for you to use. We recommend that you use elas-sdm-tetpmsh loratadine (Claritin) or cetirizine (Zyrtec) per package directions as needed for itching/irritation. Return to the emergency room if you develop shortness of breath or difficulty breathing, chest pain, difficulty swallowing, full body rash or any other concerning symptoms. Prescriptions: No Action cyclobenzaprine 10 mg tablet 10 mg PO TID PRN (Reason: muscle spasm) Qty: 14 0RF ondansetron 4 mg tablet,disintegrating 4 mg PO Q8H PRN (Reason: nausea and vomiting) Qty: 20 0RF Kyleena 17.5 mcg/24 hrs (5 yrs) 19.5 mg intrauterine device intrauterine Print Language: Mauritanian
[2024-01-31 11:11] VITALS: BP 120/71; PULSE 58; RESP 18; TEMP 36.6; O2SAT 98
== END 2024-01-31 11:11 | disposition home or self-care (01) ==
LOC: HO.ED 11:09
PROVIDERS: Emergency Provider Emergency Medicine; PCP Student in an Organized Health Care Education/Training Program
DX: R21 Rash and other nonspecific skin eruption (principal)
CPT/HCPCS: 99282

== ENCOUNTER → 2024-02-16 14:15 | Outpatient (REF) | payer MEDICAID, SELFPAY ==
--- NOTE | 2024-02-16 14:17 | CA_ITS ---
Transthoracic Echocardiogram Patient (Last, First, Middle): Summer Sandoval D Gender: Female Date of : 2000 Age: 24 Procedure Date: 02/16/2024 Procedure Type: Transthoracic Echocardiogram Location: OP Height: 160.02 cm Weight: 106.6 kg BSA: 2.07 m2 Heart Rate: bpm BP: 130 / 80 mmHg Web Design Intern: Referring MD: Thom Washington MD Enterprise Cloud Architect: Preston Etienne MD Symptoms: R55 - Syncope and collapse Study Quality: Good ECG Rhythm: Sinus Conclusions: - Normal study Findings Left Ventricle Normal left ventricular size, thickness, and systolic function. The visually estimated ejection fraction is between 60-65%. Spectral Doppler is indicative of a normal filling pattern. Right Ventricle Normal right ventricular cavity size and systolic function. Atria Both atria are normal in size. Aortic Valve Normal aortic valve structure and function. There is no aortic valve stenosis. There is no aortic valve regurgitation. Mitral Valve Normal mitral valve structure and function. There is trace mitral valve regurgitation. There is no mitral valve stenosis. Pulmonic Valve The pulmonic valve is likely normal. There is trace pulmonic valve regurgitation. Tricuspid Valve Normal tricuspid valve structure. There is trace tricuspid valve regurgitation. The right ventricular systolic pressure is normal. The right ventricular systolic pressure is 20 mmHg. Normal right atrial pressure. There is no evidence of pulmonary hypertension. Great Vessels The pulmonary artery was not well visualized. There is no dilatation of the ascending aorta measuring 2.80 cm. Venous The inferior vena cava is normal in size and collapses greater than 50% with inspiration. Pericardium/Pleural There is no evidence of pericardial effusion. Prior Study Comparison No prior study available for comparison. Measurements 2D Linear Measurements IVSd: 1.04 0.6-0.9/0.6-1.0 cm LVIDd: 4.23 3.9-5.3/4.2-5.9 cm LVIDd Index: 2.04 2.4-3.2/2.2-3.1 cm/m2 LVIDs: 2.72 2.0-3.6 cm LVPWd: 1.06 0.7-1.1 cm Ao Root: 2.40 2.1-3.5 cm LA Diam: 4.40 2.7-3.8/3.0-4.0 cm LAIDs Index: 2.13 1.5-2.3 cm/m2 LV Mass: 185.07 67-162/88-224 g LV Mass Index: 89.40 43-95/49-115 g/m2 LVOT Diam: 2.10 3.0+(-)1.3 cm 2D Systolic Function EF 4C: 64.40 >55% EF 2C: 62.80 >55% EF BiP: 63.70 >55% Mitral Valve MV Pk E: 0.77 MV PK A: 0.53 MV Decel Time: 191.00 E/A: 1.50 E'Lateral: 10.30 E'Medial: 6.64 E/E' Med: 11.60 E/E' Lat: 7.40 PHT: 56.00 MVA PHT: 3.93 Decel Carson: 4.01 Aortic Valve AoV Pk Abdi: 1.41 AoV Mn Abdi: 0.85 AoV VTI: 0.30 AoV Pk Grad: 8.00 Aov Mn Grad: 4.00 LENNOX Cont.VTI: 2.27 LVOT LVOT Pk Abdi: 0.96 LVOT Mn Abdi: 0.66 LVOT VTI: 0.20 LVOT Pk Grad: 4.00 LVOT Mn Grad: 2.00 LVOT Diam: 2.10 LVOT Area: 3.46 Diastolic Function MV Pk E: 0.77 MV Pk A: 0.53 E/A: 1.50 E'Medial: 6.64 E/E' Med: 11.60 E' Laterial: 10.30 E/E' Lat: 7.40 Right Ventricle TAPSE (mm): 22.00 TVS' Abdi: 13.00 Tricuspid Valve TR Pk Abdi: 2.08 TR Pk Grad: 17.00 RA Press: 3.00 RVSP: 20.00 Great Vessels Aorta Ao Root-2D: 2.40 2.0-3.7 cm Ao Asc: 2.80 2.1-3.4 cm Pulmonary Valve PV Pk Abdi: 1.26 Peak PV Grad: 6.00 Updated in Other Vendor System with Status of Final Preston Etienne MD electronically signed on 02/16/2024 4:12:17 PM with status of Final
== END ==
LOC: HO.CARD 14:15
PROVIDERS: PCP Student in an Organized Health Care Education/Training Program; Visit Provider Internal Medicine
DX: R55 Syncope and collapse (principal)
CPT/HCPCS: 93306

== ENCOUNTER → 2024-02-16 14:17 | Outpatient (BNV) | payer MEDICAID, SELFPAY | PROVIDERS: PCP Student in an Organized Health Care Education/Training Program; Visit Provider Internal Medicine Cardiovascular Disease | DX: R55 Syncope and collapse (principal) | CPT/HCPCS: 93306 ==

== ENCOUNTER 2024-07-28 12:45 | Outpatient (REF) | payer MEDICAID, SELFPAY ==
[2024-07-29 03:18] LABS: CT PCR NOT DETECTED (Not Detect.); NG PCR NOT DETECTED (Not Detect.)
[2024-07-29 12:06] LABS: Bacterial Vaginosis PCR NEGATIVE (Negative); Candida Group PCR NOT DETECTED (Not Detect); Candida glab krusei PCR NOT DETECTED (Not Detect); Trichomonas vaginalis PCR NOT DETECTED (Not Detect)
== END 2024-07-28 12:46 | disposition home or self-care (01) ==
LOC: HO.LNP 12:45
PROVIDERS: PCP Student in an Organized Health Care Education/Training Program; Visit Provider Advanced Practice Midwife
DX: R10.2 Pelvic and perineal pain (principal); N83.209 Unspecified ovarian cyst, unspecified side
CPT/HCPCS: 0352U; 81002; 87491; 87591; 99212

== ENCOUNTER 2024-07-28 12:45 | Outpatient (AMB) | payer MEDICAID, SELFPAY ==
[2024-07-28 13:04] VITALS: BMI 41.6
--- NOTE | 2024-07-28 13:04 | A.OFFVIS_ITS ---
Vital Signs 07/28/24 13:04 Height 5 ft 3 in Weight 235 lb BMI 41.6 Intake Visit Reasons: pelvic pain Intake Note: has IUD wants to make sure its in place. Allergies cinnamon [CINNAMON] Allergy (Severe, Verified 01/31/24 09:48) ANAPHYLAXIS sweet potato [SWEET POTATO] Allergy (Severe, Verified 01/31/24 09:48) ANAPHYLAXIS HPI Comments Details: Patient is here today with complaints of feeling a strong pain in the lower mid section of her abdomen 2 weeks ago lasting for about an hour and a half she had tried a warm bath and Tylenol which did not help subsequently she had taken 2 tablets of a menstrual cycle remedies and it seemed to ease up her discomfort. She does not have any dyspareunia, vaginal discharge, any bowel or bladder symptoms presently. History of ovarian cyst last year. Has a Kyleena IUD in place. [facility]LY [facility], [facility] Medical History Encounter for well woman exam with routine gynecological exam Obesity Anxiety attack Surgical History History of tonsillectomy and adenoidectomy Family History Mother Cervical cancer Maternal Uncle Diabetes mellitus CVD (cardiovascular disease) Maternal Aunt Ovarian cancer Son Autism Social History Alcohol intake: never Patient Tobacco Use Status: Never used Tobacco Sexual orientation: Straight/Heterosexual Gender identity: Female Female Reproductive History Menstrual Age of Menarche: 8 Date of last menstrual period: 06/11/24 control method: progestin IUCD Total pregnancies: 2 Full term: 2 Number of Living Children: 2 Ab induced: 0 Ab spontaneous: 0 Ectopics: 0 Multiple births: 0 Date of last pap smear: 02/06/24 History of abnormal pap smear: No History of STI: No Review of Systems Const All systems reviewed & are unremarkable except as noted in HPI and below Physical Exam Vital Signs: BMI result Body Mass Index 41.6 Const General: cooperative, healthy appearing and no acute distress Orientation/consciousness: patient oriented x3 GI Inspection: Yes normal to inspection Palpation (GI): Soft to palpation and Other GI palpation findings present (Slightly tender over the low mid pelvis region) Rectal Exam - Female: visual inspection normal General: Yes bladder normal to palpation External Female Exam: normal appearance of the urethra Speculum Exam - Vagina: normal appearance of the vagina, normal palpation and normal vaginal discharge Speculum Exam - Cervix: normal appearance of the cervix, normal palpation and Other cervical findings present (IUD strings visible at the os) Bimanual exam- vagina & uterus: normal bimanual exam, normal palpation, uterine size normal, bladder normal to palpation, normal palpation, uterine shape normal and non-tender Bimanual Exam- Adnexa, other: normal adnexae Neuro General: patient oriented x3 Results AMB Test Urine AMB Test Urine Negative Last Edit by Adriana Todd LPN on 07/28/24 13:15 Results Reviewed Results Reviewed: Laboratory Last Values Tst Clinic Negative 07/28/24 13:15 Assessment & Plan Assessment & Plan (1) Pelvic pain: Code(s): R10.2 - Pelvic and perineal pain Plan Pelvic rest and warnings reviewed [id number] medication p.r.n.. Hydrate well. Plan pelvic ultrasound, GC chlamydia, BV panel, UA clean-catch today- negative, UPT negative today, follow up pending results in person call sooner if there is any increase in discomfort. All of her questions and concerns were addressed to the best of my ability and shared decision making. She is agreeable to the plan of care. This note is constructed using voice recognition software. While every effort has been made to ensure accuracy, transformer molder errors may have been included. Orders: Orders US pelvic and transvaginal Today R10.2 - Pelvic and perineal pain Coding Level of Care Code Est Pt Level 4 (47425) Diagnoses Pelvic pain R10.2
--- NOTE | 2024-07-28 13:35 | A.OFFVIS_ITS ---
Vital Signs 07/28/24 13:04 Height 5 ft 3 in Weight 235 lb BMI 41.6 Intake Visit Reasons: pelvic pain Allergies cinnamon [CINNAMON] Allergy (Severe, Verified 01/31/24 09:48) ANAPHYLAXIS sweet potato [SWEET POTATO] Allergy (Severe, Verified 01/31/24 09:48) ANAPHYLAXIS [facility] Medical History (Updated 07/28/24 @ 13:30 by Maura Ramirez CNM) IUD (intrauterine device) in place Encounter for well woman exam with routine gynecological exam Obesity Anxiety attack Surgical History History of tonsillectomy and adenoidectomy Family History Mother Cervical cancer Maternal Uncle Diabetes mellitus CVD (cardiovascular disease) Maternal Aunt Ovarian cancer Son Autism Social History Alcohol intake: never Patient Tobacco Use Status: Never used Tobacco Sexual orientation: Straight/Heterosexual Gender identity: Female Female Reproductive History Menstrual Age of Menarche: 8 control method: progestin IUCD Ab induced: 0 Ab spontaneous: 0 Ectopics: 0 Physical Exam Vital Signs: BMI result Body Mass Index 41.6 Results AMB Test Urine AMB Test Urine Negative Last Edit by Adriana Todd LPN on 07/28/24 13:15 AMB Urinalysis Dipstick UR Leukocytes Negative Last Edit by Erendira Taylor CMA on 07/28/24 13:54 UR Nitrite Negative Last Edit by Erendira Taylor CMA on 07/28/24 13:54 UR Urobilinogen Normal Last Edit by Erendira Taylor, MAUREEN on 07/28/24 13:54 UR Protein Negative Last Edit by Erendira Taylor, MAUREEN on 07/28/24 13:54 UR Ph 7.5 Last Edit by Erendira Taylor, MAUREEN on 07/28/24 13:54 UR Blood Negative Last Edit by Erendira Taylor, MAUREEN on 07/28/24 13:54 UR Specific Hendrix 1.010 Last Edit by Erendira Taylor, MAUREEN on 07/28/24 13:54 UR Ketone Negative Last Edit by Erendira Taylor CMA on 07/28/24 13:54 UR Bilirubin Negative Last Edit by Erendira Taylor CMA on 07/28/24 13:54 UR Glucose Negative Last Edit by Erendira Taylor CMA on 07/28/24 13:54 Results Reviewed Results Reviewed: Laboratory Last Values Urine pH (Clinic) 7.5 07/28/24 13:53 Specific Hendrix (Clinic) 1.010 07/28/24 13:53 Ur Protein (Clinic) Negative 07/28/24 13:53 Ur Ketones (Clinic) Negative 07/28/24 13:53 Urine Blood (Clinic) Negative 07/28/24 13:53 Urine Nitrite Negative 07/28/24 13:53 Urine Bilirubin (Clinic) Negative 07/28/24 13:53 Urobilinogen (Clinic) Normal 07/28/24 13:53 Leukocyte Esterase (Clinic) Negative 07/28/24 13:53 Urine Glucose (Clinic) Negative 07/28/24 13:53 Tst Clinic Negative 07/28/24 13:15 Assessment & Plan Assessment & Plan Orders: Orders US pelvic and transvaginal Today R10.2 - Pelvic and perineal pain Bacterial Vaginosis Panel Today N83.209 - Unspecified ovarian cyst, unspecified side AMB Urinalysis Dipstick Today R10.2 - Pelvic and perineal pain CT NG by PCR Today R10.2 - Pelvic and perineal pain Coding
== END 2024-07-28 14:17 | disposition home or self-care (01) ==
LOC: HO.HWS 12:45
PROVIDERS: PCP Student in an Organized Health Care Education/Training Program; Visit Provider Advanced Practice Midwife
DX: R10.2 Pelvic and perineal pain (principal)
CPT/HCPCS: 99214

== ENCOUNTER 2024-11-08 09:55 | Emergency (ER) | payer MEDICAID, SELFPAY ==
[2024-11-08 11:09] VITALS: BP 118/78; PULSE 121; RESP 16; TEMP 37.2; O2SAT 100; BMI 39.9
--- NOTE | 2024-11-08 11:09 | ED_ITS ---
HPI - Headache General Chief Complaint: Nausea/Vomiting/Diarrhea Stated Complaint: migraine Related Data Home Medications ?Medication ?Instructions ?Recorded ?Confirmed levonorgestrel 17.5 mcg/24 hr (up intrauterine 07/25/23 01/27/24 to 5 yrs) 19.5mg intrauterine device (Kyleena) Previous Rx's ?Medication ?Instructions ?Recorded cyclobenzaprine 10 mg tablet 10 mg PO TID PRN muscle spasm #14 04/19/23 tabs ondansetron 4 mg disintegrating 4 mg PO Q8H PRN nausea and 04/19/23 tablet vomiting #20 tabs Allergies Allergy/AdvReac Type Severity Reaction Status Date / Time cinnamon [CINNAMON] Allergy Severe ANAPHYLAXIS Verified 11/08/24 11:11 sweet potato [SWEET POTATO] Allergy Severe ANAPHYLAXIS Verified 11/08/24 11:11 [facility] Past Medical History Medical History (Updated 11/09/24 @ 09:21 by Natalee Dooley DO) IUD (intrauterine device) in place Encounter for well woman exam with routine gynecological exam Obesity Anxiety attack Surgical History History of tonsillectomy and adenoidectomy Family History Family History Mother Cervical cancer Maternal Uncle Diabetes mellitus CVD (cardiovascular disease) Maternal Aunt Ovarian cancer Son Autism Social History Social History Alcohol intake: never Patient Tobacco Use Status: Never used Tobacco Advance Directives: No Advance Directives Information Provided: No Sexual orientation: Straight/Heterosexual Gender identity: Female Physical Exam 2 Vital Signs: Vital Signs: Last Vital Signs Temp 99 F 11/08/24 11:09 Pulse 121 H 11/08/24 11:09 Resp 16 11/08/24 11:09 BP 118/78 11/08/24 11:09 Pulse Ox 100 11/08/24 11:09 O2 Del Method Room Air 11/08/24 11:09 BMI result Body Mass Index 39.9 Course Course Course Narrative: 24 yo female with PMH of prior near syncope episodes, presents with 4 to 5 days of diarrhea, vomiting, states she cannot eat or drink. She states she feels very weak, she has a sore throat and dizzy. She went home with fara 2 days ago from urgent care she states they swabbed her but she is not sure what it was. She has been sick with fevers up to 102. Her aunt was ill and told her she had the same symptoms with the flu. Labs, IM nausea medications until a bed opens up. this is a RAPID medical screening exam the rest of the history and physical exam is to be done by the main provider. Medications Administered Discontinued Medications Generic Name Dose Route Start Last Admin Trade Name Chari PRN Reason Stop Dose Admin Metoclopramide HCl 10 mg 11/08/24 11:11 11/08/24 11:27 Metoclopramide Hcl 10 Mg/2 Ml Vial IM 11/08/24 11:12 10 mg ONCE ONE Administration Medical Decision Making Lab Data 11/08/24 11:11 11/08/24 11:11 Labs: Lab Results 11/08/24 Range/Units 11:11 WBC 9.1 (4.8-10.8) X10*3/uL RBC 5.49 (4.20-5.50) X10*6/uL Hgb 15.2 (12.0-16.0) g/dl Hct 43.6 (37.0-47.0) % MCV 79.4 L (80.0-98.0) fL MCH 27.7 (27.0-33.0) pg MCHC 34.9 (31.0-35.0) g/dl RDW 12.4 (11.0-16.0) % Plt Count 204 D (160-400) X10*3/uL MPV 9.8 (9.4-12.3) fL Immature Gran % (Auto) 0.7 H (0.0-0.4) % Neut % (Auto) 80.7 H (45-73) % Lymph % (Auto) 8.9 L (20-40) % Norman % (Auto) 9.3 (2-11) % Eos % (Auto) 0.2 (0-4) % Baso % (Auto) 0.2 (0-2) % Lymph # (Auto) 0.8 L (1.2-4.9) X10*3/uL Norman # (Auto) 0.8 (0.1-1.2) X10*3/uL Eos # (Auto) 0.0 (0.0-0.4) X10*3/uL Baso # (Auto) 0.0 (0.0-0.2) X10*3/uL Abs Immat Gran (auto) 0.06 H (0.00-0.03) X10*3/uL Absolute Neuts (auto) 7.3 (2.0-8.3) x10*3/uL Absolute Nucleated RBC 0.000 (0.0-0.012) X10*3/uL Nucleated RBC % (auto) 0.0 (0.0-0.2) /100WBC Sodium 135 (135-145) mmol/L Potassium 3.6 (3.3-5.1) mmol/L Chloride 105 (96-108) mmol/L Carbon Dioxide 18 L (22-29) mmol/L Anion Gap 16 (12-20) BUN 5 L (9-16) mg/dL Creatinine 0.68 (0.5-1.4) mg/dL Estim Creat Clear Calc 145.5 Estimated GFR > 60 Random Glucose 100 (60-115) mg/dL Calcium 9.2 (8.4-10.2) mg/dL Magnesium 2.1 (1.6-2.6) mg/dL Total Bilirubin 1.2 H (0.0-1.0) mg/dL Direct Bilirubin 0.5 (0.0-0.5) mg/dL AST 53 H (5-31) U/L ALT 56 H (0-31) U/L Alkaline Phosphatase 90 (39-117) U/L Total Protein 8.1 H (6.5-8.0) g/dL Albumin 4.0 (3.5-5.0) g/dL Lipase 20 (8-78) U/L Beta HCG, Quant < 2 mIU/mL Influenza Type A (PCR) NEGATIVE (Negative) Influenza Type B (PCR) NEGATIVE (Negative) RSV RNA Qual (PCR) NEGATIVE (Negative) SARS-CoV-2 RNA (RT-PCR) NEGATIVE (Negative) Discharge Plan Discharge Clinical Impression: Nausea & vomiting Qualifiers: Vomiting type: unspecified Qualified Code(s): R11.2 - Nausea with vomiting, unspecified Patient Disposition: Left W/O Completing Treatment Prescriptions: No Action cyclobenzaprine 10 mg tablet 10 mg PO TID PRN (Reason: muscle spasm) Qty: 14 0RF ondansetron 4 mg tablet,disintegrating 4 mg PO Q8H PRN (Reason: nausea and vomiting) Qty: 20 0RF Kyleena 17.5 mcg/24 hrs (5 yrs) 19.5 mg intrauterine device intrauterine Discharge Date/Time: 11/08/24 17:04
[2024-11-08] MEDS: Metoclopramide HCl 10 MG/2 ML VIAL IM (11:27)
[2024-11-08 11:35] LABS: Red Cell Distribution Width 12.4 % (11.0-16.0)
[2024-11-08 11:37] LABS: Basophils Percent Auto 0.2 % (0-2); Eosinophils Percent Auto 0.2 % (0-4); Mean Corpuscular Hemoglobin 27.7 pg (27.0-33.0)
[2024-11-08 11:44] LABS: Lymphocytes Percent Auto 8.9 % (20-40); Mean Platelet Volume 9.8 fL (9.4-12.3)
[2024-11-08 11:46] LABS: Hematocrit 43.6 % (37.0-47.0); Hemoglobin 15.2 g/dl (12.0-16.0); Imm Gran Abs Auto 0.06 X10*3/uL (0.00-0.03); Imm Gran Pct Auto 0.7 % (0.0-0.4); Lymphocytes Absolute Auto 0.8 X10*3/uL (1.2-4.9); Mean Corpuscular HGB Conc 34.9 g/dl (31.0-35.0); Mean Corpuscular Volume 79.4 fL (80.0-98.0); Monocytes Absolute Auto 0.8 X10*3/uL (0.1-1.2); Monocytes Percent Auto 9.3 % (2-11); Neutrophils Absolute Auto 7.3 x10*3/uL (2.0-8.3); Neutrophils Percent Auto 80.7 % (45-73); Platelet Count 204 X10*3/uL (160-400); Red Blood Count 5.49 X10*6/uL (4.20-5.50); White Blood Count 9.1 X10*3/uL (4.8-10.8)
[2024-11-08 11:47] LABS: MANUAL DIFF FLAG NO
[2024-11-08 12:01] LABS: Alanine Aminotransferase 56 U/L (0-31); Alkaline Phosphatase 90 U/L (39-117); Anion Gap 16 (12-20); Aspartate Amino Transferase 53 U/L (5-31); Bilirubin Direct 0.5 mg/dL (0.0-0.5); Bilirubin Total 1.2 mg/dL (0.0-1.0); Blood Urea Nitrogen 5 mg/dL (9-16); Calcium 9.2 mg/dL (8.4-10.2); Carbon Dioxide 18 mmol/L (22-29); Chloride 105 mmol/L (96-108); Creatinine Clr Calc Pharmacy 145.5; Estimated Glomerular Filt Rate > 60; Glucose Random 100 mg/dL (60-115); HCG Quantitative < 2 mIU/mL; Lipase 20 U/L (8-78); Magnesium 2.1 mg/dL (1.6-2.6); Potassium 3.6 mmol/L (3.3-5.1); Sodium 135 mmol/L (135-145); Total Protein 8.1 g/dL (6.5-8.0)
[2024-11-08 12:21] LABS: Influenza A PCR NEGATIVE (Negative); Influenza B PCR NEGATIVE (Negative); Resp Syncy Virus RNA Qual PCR NEGATIVE (Negative); SARS COV2 PCR INHOUSE NEGATIVE (Negative)
--- OUTSIDE RECORDS SUMMARY | 2024-11-08 18:24 | XMS_ITS | Clinical Summary ---
Author Organization [facility] Address [address] [place] [address] Care Team Providers Care Supervisor [employer] Name Role Phone Unavailable Primary Care Provider Unavailabl e Surgical History Surgery Date Site/Laterality Comments OTHER SURGICAL HISTORY 2012 PROCEDURE: [place] TONSILLECTOMY & ADENOIDECTOMY AGE 12/> Medical History Medical History Date Comments Morbid obesity with BMI of 4 0.0-44.9, adult (CMS/HCC) DX:Morbid obesity with BMI o f 40.0-44.9, adult (HCC) Family History Medical History Relation Name Comments Cervical cancer Mother Relation Name Status Comments Brother Alive Father Alive Mother Alive Paternal Grandfather Paternal Grandmother Alive Sister Alive Son Alive Social History Tobacco Use Types Packs/Day Years Used Date Smoking Tobacco: Never Smokeless Tobacco: Never Alcohol Use Standard Drinks/Week Comments No 0 (1 standard drink = 0.6 oz pur e alcohol) Comments Unknown Sex and Gender Information Value Date Recorded Sex Assigned at Not on file Legal Sex Female 4:50 AM EST Gender Identity Not on file Sexual Orientation Not on file Obstetrics History Plan of Treatment Health Maintenance Due Date Last Done Comments Gonorrhea/Chlamydia Screening 2000 HPV Vaccines (1 - 3-dose series) 02/11/2015 DTaP,Tdap,and Td Vaccines (1 - Tdap) 02/11/2019 Hepatitis B Vaccines (1 of 3 - 19+ 3-dose series) 02/11/2019 Cervical Cancer Screening: P ap Smear 02/11/2021 COVID-19 Vaccine ( - 2023-2 5 season) 2024 Influenza Vaccine (#1) 2024 HIB Vaccines Aged Out No longer eligi ble based on patient's age to complete this topic Hepatitis A Vaccines Aged Out No long er eligible based on patient's age to complete this topic IPV Vaccines Aged Out No longer eligi ble based on patient's age to complete this topic MMR Vaccines Aged Out No longer eligi ble based on patient's age to complete this topic Meningococcal ACWY Vaccine Aged Out N o longer eligible based on patient's age to complete this topic Meningococcal B Vacine Aged Out No lo nger eligible based on patient's age to complete this topic Pneumococcal Vaccine: Pediat rics (0 to 5 Years) and At-Risk Patients (6 to 64 Years) Aged Out No longer eligible b ased on patient's age to complete this topic RSV Immunization Patients Un odilia 20 months Aged Out No longer eligible b ased on patient's age to complete this topic Varicella Vaccines Aged Out No longer eligible based on patient's age to complete this topic
== END 2024-11-08 17:04 | disposition left against medical advice (07) ==
PROVIDERS: Emergency Provider Emergency Medicine
DX: R11.2 Nausea with vomiting, unspecified (principal); R19.7 Diarrhea, unspecified; J02.9 Acute pharyngitis, unspecified; Z03.818 Encounter for observation for suspected exposure to other biological agents ruled out
CPT/HCPCS: 0241U; 36415; 80048; 80076; 83690; 83735; 84702; 85025; 96372; 99281; 99284; J2765

== ENCOUNTER 2024-11-19 13:37 | Outpatient (REF) | payer MEDICAID, SELFPAY ==
--- OUTSIDE RECORDS SUMMARY | 2024-11-19 15:14 | XMS_ITS | Clinical Summary ---
Author Organization [facility] Address [address] [place] [address] Care Team Providers Care Hide Shaker Name Role Phone Unavailable Primary Care Provider Unavailabl e Surgical History Surgery Date Site/Laterality Comments OTHER SURGICAL HISTORY 2012 PROCEDURE: SD TONSILLECTOMY & ADENOIDECTOMY AGE 12/> Medical History [...]
[2024-11-19 16:52] LABS: Alanine Aminotransferase 32 U/L (0-31); Albumin Level 4.3 g/dL (3.5-5.0); Alkaline Phosphatase 63 U/L (39-117); Anion Gap 11 (12-20); Aspartate Amino Transferase 27 U/L (5-31); Bilirubin Total 0.9 mg/dL (0.0-1.0); Blood Urea Nitrogen 11 mg/dL (9-16); Calcium 9.5 mg/dL (8.4-10.2); Carbon Dioxide 25 mmol/L (22-29); Chloride 107 mmol/L (96-108); Estimated Glomerular Filt Rate > 60; Glucose Random 81 mg/dL (60-115); Iron 87 mcg/dL (30-160); Percent Iron Saturation 28 % (15-50); Potassium 4.1 mmol/L (3.3-5.1); Sodium 139 mmol/L (135-145); Total Iron Binding Capacity 306 mcg/dL (228-428); Total Protein 8.1 g/dL (6.5-8.0); Unsaturated Iron Binding 219 ug/dL
[2024-11-19 17:02] LABS: Vitamin B12 365 pg/mL (200-900)
[2024-11-19 17:08] LABS: Ferritin 155 ng/mL (10-122)
[2024-11-19 18:02] LABS: Hematocrit 43.9 % (37.0-47.0); Hemoglobin 14.6 g/dl (12.0-16.0); Mean Corpuscular HGB Conc 33.3 g/dl (31.0-35.0); Mean Corpuscular Hemoglobin 27.4 pg (27.0-33.0); Mean Corpuscular Volume 82.4 fL (80.0-98.0); Mean Platelet Volume 9.8 fL (9.4-12.3); Platelet Count 336 X10*3/uL (160-400); Red Blood Count 5.33 X10*6/uL (4.20-5.50); Red Cell Distribution Width 12.7 % (11.0-16.0); White Blood Count 9.1 X10*3/uL (4.8-10.8)
[2024-11-22 19:04] LABS: Immunoglobulin A 199 mg/dL (47-310); Transglutaminase IgA <1.0 U/mL
== END 2024-11-19 13:38 | disposition home or self-care (01) ==
LOC: HO.HHCL 13:37
PROVIDERS: Student in an Organized Health Care Education/Training Program
DX: R14.0 Abdominal distension (gaseous) (principal); R55 Syncope and collapse; R79.89 Other specified abnormal findings of blood chemistry
CPT/HCPCS: 36415; 80053; 82607; 82728; 82784; 83540; 85027; 86364

== ENCOUNTER 2024-12-31 11:40 | Outpatient (REF) | payer MEDICAID, SELFPAY ==
--- OUTSIDE RECORDS SUMMARY | 2024-12-31 12:45 | XMS_ITS | Encounter Summary ---
Author Organization [facility] Address [address] [place] [address] [address] [place] [address] Care Team Providers Care Sustainable Development Policy Analyst Name Role Phone Christy Thornton DONTE Primary Care Provider [phone] Yanci Collins MD Primary Care Pro vider Deborah Andrade CNP Primary Care Provider [phone] Encounter Details Date Type Department Care Team (Late st Contact Info) Description 06/12/2023 Orders Only [facility] [address] [place] [id number] Provider, MD Kiya Social History Tobacco Use Types Packs/Day Years Used Date Smoking Tobacco: Never Assessed Comments Unknown Sex and Gender Information Value Date Recorded Sex Assigned at Female 07/15/2022 10:27 AM EDT Legal Sex Female 10:27 AM EDT Gender Identity Female 07/15/2022 10:27 AM EDT Sexual Orientation Straight 07/15/2022 10 :27 AM EDT documented as of this encounter Plan of Treatment Upcoming Encounters Date Type Department Care Team (Late st Contact Info) Description 02/11/2025 2:15 PM EDT Office Visit [facility] [address] [place] [id number] Deborah Andrade, [employer]ING [employer]ER [address] [place] [address] documented as of this encounter Procedures Procedure Name Priority Date/Time Associated Diagnosis Comments PAP/HPV Routine 03/07/2021 documented in this encounter Results * Pap Smear (03/07/2021) us Historical Provider HEALTH MAINTENANCE Final Result documented in this encounter Visit Diagnoses Not on filedocumented in this encounter Care Teams Sustainable Development Policy Analyst Relationship Specialty Start Date End Date Christy Thornton FNP [address] [place] [address] PCP - General Family Medicine 06/05/23 11/13/23 Yanci Collins MD [address] [place] [address] PCP - General Internal Medicine 11/14/23 08/31/24 Deborah Andrade CNP [address] [place] [address] PCP - General Family Medicine 09/01/24 documented as of this encounter
--- OUTSIDE RECORDS SUMMARY | 2024-12-31 12:45 | XMS_ITS | Encounter Summary ---
Author Organization [employer] Address [address] [place] [address] [address] [place] [address] Care Team Providers Care Nurse Healthcare Manager Name Role Phone Christy Thornton Primary Care Provider [phone] Yanci Collins MD Primary Care Pro vider Deborah Andrade CNP Primary Care Provider [phone] Reason for Visit * Reason Onset Date Comments Nurse Triage 10/20/2023 Encounter Details Date Type Department Care Team (Late st Contact Info) Description 10/20/2023 Telephone [facility] [address] [place] [address] Christy Thornton FNP [address] [place] [address] Nurse Triage Social History Tobacco Use Types Packs/Day Years Used Date Smoking Tobacco: Never Assessed Comments Unknown Sex and Gender Information Value Date Recorded Sex Assigned at Female 07/15/2022 10:27 AM EDT Legal Sex Female 10:27 AM EDT Gender Identity Female 07/15/2022 10:27 AM EDT Sexual Orientation Straight 07/15/2022 10 :27 AM EDT documented as of this encounter Miscellaneous Notes * Telephone Encounter - Shira Bennett RN - 10/20/2023 11:36 AM EST Triage call Pt reports headache, sinus congestion and pressure, nose drainage clear, cough, sneezing, sore throat and earache. Pt denies fever. Pt was seen in [facility] 07/29/24 with dx of subacute maxillary sinusitis and was prescribed augmentin for 7 days and flonase nasal spray. Pt did get better but,all of the same symtpoms have come back over the last 3 days. Pt continues with flonase nasal spraywithout effect, can't taste anything. Pt is advised to come to [facility] today to be seen by provider andPt agrees with disposition and home care reviewed. Insurance is verified as active. Protocol Used: Sinus Pain or Congestion (Adult) Protocol-Based Disposition: See in Office or Video Visit Today Video visit not offered Positive Triage Questions: * Earache * Lots of coughing * Patient wants to be seen * All higher-acuity triage questions were negative Care Advice Discussed: * Reassurance and Education - Colds and Sinus Congestion * Hydration * Reasons To Call Back - Severe pain persists over 2 hours after pain medicine - Sinus pain persists over 1 day after using nasal washes - Sinus congestion (fullness) persists over 10 days - Fever lasts over 3 days - You become worse * Telephone Encounter - Tami Chau - 10/20/2023 11:08 AM EST Symptoms: Sinus Symptoms, Sore Throat Outcome: Schedule an urgent appointment (within 1 hour) or talk to a nurse or provider soon Reason: Severe headache The caller accepted this outcome documented in this encounter Plan of Treatment Upcoming Encounters Date Type Department Care Team (Late st Contact Info) Description 02/11/2025 2:15 PM EDT Office Visit [facility] [address] [place], [place] [phone] Deborah Andrade CNP [address] [place] [address] documented as of this encounter Visit Diagnoses Not on filedocumented in this encounter Care Teams Nurse Healthcare Manager Relationship Specialty Start Date End Date Christy Thornton FNP [address] [place] [address] PCP - General Family Medicine 06/05/23 11/13/23 Yanci Collins MD [address] [place] [address] PCP - General Internal Medicine 11/14/23 08/31/24 Deborah Andrade CNP [address] [place] [address] PCP - General Family Medicine 09/01/24 documented as of this encounter
--- OUTSIDE RECORDS SUMMARY | 2024-12-31 12:45 | XMS_ITS | Encounter Summary ---
Author Organization [facility] [facility] [employer] [facility] Address [address] [facility] [address] [place] [address] Care Team Providers Care Plant Anatomy Teacher Name Role Phone Germán Reddy AGNCristobal Primary Care Provider Unavail Christy NanceP Primary Care Provider [phone] Yanci Collins MD Primary Care Pro vider Deborah Andrade CNP Primary Care Provider [phone] Encounter Details Date Type Department Care Team (Latest Contact Info) Description 12/08/[address] [facility] CONVERSIONS Dental, Provider, DDS Social History Tobacco Use Types Packs/Day Years [...] Upcoming Encounters Date Type Department Care Team ( Contact Info) Description 02/11/2025 2:15 PM EDT Office Visit [facility] [address] [place] [address] Deborah Andrade CNP [address] [place] [address] documented as of this encounter Visit Diagnoses Not on filedocumented in this encounter Care Teams Plant Anatomy Teacher Relationship Specialty Start Date End Date Germán Reddy AGNP PCP - General Family Medicine 06/26/22 06/04/23 Christy Thornton FNP [address] [place] [address] PCP - General Family Medicine 06/05/23 11/13/23 Yanci Collins MD [address] [place] [address] PCP - General Internal Medicine 11/14/23 08/31/24 Deborah Andrade CNP [address] [place] [address] PCP - General Family Medicine 09/01/24 documented as of this encounter
--- OUTSIDE RECORDS SUMMARY | 2024-12-31 12:45 | XMS_ITS | Clinical Summary ---
Author Organization [employer] Address [address] [place] [address] Care Team Providers Care Software Team Leader Name Role Phone Deborah Andrade KAREEM Primary Care Provider [phone] Allergies Active Allergy Reactions Criticality Noted Date Comments Sweet Potato 12/27/2014 Medications * This document contains information received from the source organization and may not represent a complete record from that organization. fluticasone (Flonase) 50 MCG/ACT nasal sprayIndicatio ns:Subacute maxillary sinusitis SPRAY 1 SPRAY INTO EACH NOSTRIL IN THE MORNING 48 mL 10/01/19 24 Active cetirizine (ZyrTEC) 10 MG chewable tablet Chew Once per day. Active Homeopathic Products ([facility]) gel Apply 1 Application topically if needed in the morning, at noon, in the evening, and at bedtime (wrist pain). 73 g 06/12/20 24 Active gabapentin (Neurontin) 100 MG capsule Take 1 capsule (100 mg) by mouth if needed in the morning, at noon, and at bedtime (L wrist pain) for up to 15 days. 45 capsule 06/12/20 24 Active Diclofenac Sodium 1 % gel Apply thin layer by topical route (quantity as directed on package insert) to affected area of pain 3 times daily as needed. 50 g 3 06/12/20 24 Active BP Wash 10 % external wash APPLY TO ABDOMINAL FOLD, THIGHS, GROIN, AXILLAE TWICE A DAY THEN RINSE 06/10/20 24 Active escitalopram (Lexapro) 10 MG tabletIndicati ons:Recurrent major depressive disorder, remission status unspecified (CMS/HCC),Gene ralized anxiety disorder with panic attacks Take 1 tablet (10 mg) by mouth Once per day. 30 tablet 11 09/01/20 24 025 Active hydrOXYzine HCl (Atarax) 25 MG tabletIndicati ons:Recurrent major depressive disorder, remission status unspecified (CMS/HCC),Gene ralized anxiety disorder with panic attacks Take 1 tablet (25 mg) by mouth if needed at bedtime for itching. 30 tablet 11 09/01/20 24 025 Active Nirmatrelvir&R itonavir 300/100 (Paxlovid, 300/100,) 20 x 150 MG & 10 x 100MG tablet therapy pack Take 3 tablets by mouth 2 times daily. 30 each 10/05/19 25 Active triamcinolone (Kenalog) 0.1 % ointmentIndica tions:Eczema, unspecified type Apply topically 2 times daily. 15 g 10/13/19 25 Active clindamycin (Clindagel) 1 % gelIndications :Cystic acne Apply topically 2 times daily. 60 g 11/10/19 25 Active famotidine (Pepcid) 20 MG tabletIndicati ons:Gastroesop hageal reflux disease, unspecified whether esophagitis present Take 1 tablet (20 mg) by mouth 2 times daily. 60 tablet 11 11/20/19 25 026 Active Tirzepatide 12.5 MG/0.5ML solution auto-injectorI ndications:Obe sity (BMI 30-39.9) Inject 0.5 mL under the skin 1 (one) time per week. 2 mL 01/01/20 25 Active Tirzepatide-We ight Management (Zepbound) 7.5 MG/0.5ML solution auto-injectorI ndications:Mor bid obesity (CMS/HCC) Inject 0.5 mL (7.5 mg) under the skin 1 (one) time per week. 2 mL 11/10/19 25 025 Discontinued(T herapy completed) Tirzepatide-We ight Management (Zepbound) 10 MG/0.5ML solution auto-injector Inject 0.5 mL (10 mg) under the skin 1 (one) time per week. 2 mL 12/11/19 25 025 Discontinued Active Problems Problem Noted Date Diagnosed Date Abdominal bloating 11/19/2024 Assessment & Plan (11/19/2024 4:25 PM EST): Diffuse tenderness in epigastrum, otherwise abdominal exam wnl Provided education about GLP 1 mechanism which slows gastric emptying leading to bloating, abdominal pain, possible n/v. Pt aware of these symptoms and wants to continue with medication. Will also obtain celiac panel and H. Pylori testing as well as abdominal US d/t chronic nature of issue. Plan to f/u at end of month for weight loss med Nausea 11/10/2024 Influenza-like illness 11/10/2024 Assessment & Plan (11/10/2024 2:24 PM EST): Advised pt to seek care at urgent care or [facility] if her symptoms do not improve by end of week. Sent zofran to pharmacy for her nausea Advised ample hydration and handwashing Eczema 10/13/2024 Assessment & Plan (10/13/2024 4:36 PM EST): Will send triamcinolone cream to apply BID to affected areas Also advised pt to try tub of cerave moisturizing cream to apply to affected areas as well Referral placed to [facility] derm clinic Cystic acne 10/13/2024 Assessment & Plan (11/10/2024 2:24 PM EST): Acne in intertriginous areas seems to be improving with clindamycin gel, will send refill today Assessment & Plan (10/13/2024 4:36 PM EST): Advised pt to use clindagel that she has on hand and apply to affected areas Will f/u in 1 month COVID 10/06/2024 Subacute cough 10/06/2024 Fever and chills 10/06/2024 Generalized anxiety disorder with panic attacks 07/28/2024 Assessment & Plan (10/13/2024 4:37 PM EST): Pt will continue on current medications F/u in 1 month Assessment & Plan (09/01/2024 4:33 PM EST): Will continue with atarax 25 mg prn at bedtime, refills sent Assessment & Plan (07/28/2024 4:22 PM EST): Patient Health Questionnaire-9 Score: 12 (11/17/2023 1:01 PM) MAYKEL-7 Total Score: 8 (11/17/2023 1:03 PM) Will start patient on Lexapro 10 mg daily and atarax prn at bedtime Patient will continue to follow up with her psych provider and eventually let her manage her medication regimen. Patient informed of side effects of SSRIs including increased incidence of suicidal thoughts in first two weeks of taking medication and other side effects including upset stomach, vomiting, diarrhea, indigestion, constipation, headache, weight gain, sexual dysfunction. Informed pt that it will take 4-6 weeks to feel full therapeutic effect of medication. Patient informed of side effects of Hydroxyzine such as drowsiness. Vitamin B12 deficiency 01/08/2024 Depression 11/11/2023 Assessment & Plan (09/01/2024 4:34 PM EST): Will continue on Lexapro 10mg daily, refills sent Will continue with current BH provider Assessment & Plan (11/17/2023 4:09 PM EST): During IBH Consult Summer presenting with depressed mood, loss of interests/pleasure , change in appetite or weight overeating, trouble concentrating, fatigue/loss of energy, inappropriate guilt , hopelessness; avoidance of reminders that her grandma is not here anymore, intense loneliness and intense emotional pain when thinking and talking about her grandma for a period of 18+ mo, for all symptoms in the context of and family issues. Summer identified the of her grandma as a trigger. She finds it difficult to talk about memories. Summer has no time for self- care; she has two kids and two family pets. Reports having BH in the past, however, her therapeutical experience wasn't the best. She's trying to replace eating habits by practicing healthier coping mechanisms. PLAN: (check all that apply) New/Additional Services needed Off-site services for Behavioral Health Integration Plan External OP therapy referral Patient Self Plan Patient to utilize skills provided in intervention , Patient to reach out to [facility] team as needed, and Patient to engage in OP therapy . Patient will request assistance from clinician if needed during her next physical appointment. Assessment & Plan (11/11/2023 3:01 PM EST): PHQ9: 2 ,MAYKEL 2, NO SI, no hallucinations Not on meds for years -referred to today Other atopic dermatitis 11/11/2023 Assessment & Plan (11/11/2023 3:02 PM EST): Triamcinolone px for excema in both hands -if no better will need to se sales representative facility services -f w PCP in 4 weeks to monitor Morbid obesity 11/11/2023 Assessment & Plan (12/10/2024 11:32 AM EDT): Tolerated 7.5mg, lost 6lbs in 1 month, currently weights 216, will increase dose to 10mg weekly, follow up in 1 month Assessment & Plan (11/10/2024 2:25 PM EST): Plan to increase zepbound from 5mg to 7.5 mg as patient seems to be tolerating meds well. GI upset and symptoms seem to be related to viral like illness opposed to GLP1 based on timing of side effects. Assessment & Plan (10/13/2024 4:35 PM EST): 11 lbs lost since last visit, denies any adverse side effects Will increase zepbound dose to 5 mg weekly F/u in 1 month Assessment & Plan (09/01/2024 4:38 PM EST): BMI 43.93 Reviewed indications for pharmacotherapy with patient, which is treatment for patient w/ obesity or a patient with a BMI > 27 w/ CV risk factors who have failed lifestyle modifications alone. These are always prescribed in combination with ongoing lifestyle modification; and will be titrated up from the lowest dose. Will start patient on Zepbound 2.5mg, given know efficacy. Reviewed mechanism of action with patient. Discussed side effects with patient: nausea, vomiting, diarrhea & risk of pancreatitis. No contraindications identified: , hx of pancreatitis, hx of medullary thyroid cancer or MEN 2. Patient doesn't have prior trial of phentermine/Topamax due to contraindication to phentermine because of diagnosis of anxiety. Discussed calorie deficit, recommended reduction of 20-30% of maintenance calories; sees die press operator. Recommended to decrease soda and sugary beverage consumption. Recommended at least 20 g per meal of protein to assist with satiety. Recommended at least 150 min/week of moderate intensity exercise. F/u in 6 weeks to evaluate SE and weight loss Assessment & Plan (11/11/2023 3:03 PM EST): Morbid obesity -Advised pt to improve diet and exercise,discussed healthy life style -discussed die press operator referral -referred today -may need to discuss about bariatric surgery if not able to lose weight Family hx-malignancy 11/11/2023 Assessment & Plan (11/11/2023 3:03 PM EST): Mother w ovarian ca and maternal aunt breast ca ---referred today to genetic specialist Health care maintenance 11/11/2023 Assessment & Plan (11/11/2023 3:04 PM EST): -contraception : IUD -pap smear : 01/2023 Neg per pt at [facility] ---states has apt w [employer] for 01/2024 -vaccines s/p hepAx2, hep Bx3,HPV x3,meningococal vaccinex2, MMRx3,varicella x3, COVID x2--Today last booster , Flu vaccine today ,tdap 2019 - -Gave info to go to eye care apt -labs x annual exam-will RTC in fasting -pt agreed to have STI testing including HIV to have for baseline --pt to f w her PCP in 4 weeks to monitor skin rash in hands and f labs Ovarian cyst 11/11/2023 Assessment & Plan (11/11/2023 3:05 PM EST): -F w [employer] last seen 08/2023 -Pelvic US 08/22/2023 1. Complex septated cyst left ovary likely hemorrhagic cyst. 2. The right ovary is unremarkable. 3. IUD is in correct position within the endometrial canal. The uterus is unremarkable. 4. There is no free fluid in the cul-de-sac Grief 11/10/2023 Assessment & Plan (11/17/2023 4:09 PM EST): During IBH Consult Summer presenting with depressed mood, loss of interests/pleasure , change in appetite or weight overeating, trouble concentrating, fatigue/loss of energy, inappropriate guilt , hopelessness; avoidance of reminders that her grandma is not here anymore, intense loneliness and intense emotional pain when thinking and talking about her grandma for a period of 18+ mo, for all symptoms in the context of and family issues. Summer identified the of her grandma as a trigger. She finds it difficult to talk about memories. Summer has no time for self- care; she has two kids and two family pets. Reports having BH in the past, however, her therapeutical experience wasn't the best. She's trying to replace eating habits by practicing healthier coping mechanisms. PLAN: (check all that apply) New/Additional Services needed Off-site services for Behavioral Health Integration Plan External OP therapy referral Patient Self Plan Patient to utilize skills provided in intervention , Patient to reach out to [facility] team as needed, and Patient to engage in OP therapy . Patient will request assistance from clinician if needed during her next physical appointment. Gastroesophageal reflux disease 10/16/2015 Assessment & Plan (11/19/2024 4:26 PM EST): Pt sx appear to be consistent with reflux Plan to send rx for pepcid for symptom relief and will also obtain labs and imaging-see orders to r/o other etiologies for bloating/reflux sx F/u in 1 month for weight loss meds Resolved Problems Problem Noted Date Diagnosed Date Resolved Date Syncope and collapse 01/08/2024 024 Encounters Date Type Department Care Team Description 12/31/2024 11:15 AM EDT Office Visit [facility] [address] [place] [phone] Deborah Andrade CNP Obesity (BMI 30-39.9) (Primary Dx); Chronic migraine with aura without status migrainosus, not intractable; Easy bruising; Low blood pressure reading 12/31/2024 Travel 12/22/2024 Telephone [facility] [address] [place] [address] Deborah Andrade CNP 12/17/2024 11:15 AM EDT Office Visit [facility] [address] [place] [address] Deborah Andrade CNP Morbid obesity (CMS/HCC) (Primary Dx); Easy bruising 12/17/2024 Travel 12/15/[address] [facility] [address] [place] [address] Deborah Andrade CNP chart prep 12/14/2024 Travel 12/10/2024 11:15 AM EDT Telemedicine [facility] [address] [place] [address] Sajan Lucas MD Morbid obesity (CMS/HCC) (Primary Dx) 12/10/2024 Travel 11/26/2024 Population Health Risk [facility] () Department [address] [place] [phone] Provider, Population Health Generic 11/19/2024 1:00 PM EST Office Visit [address] [phone] Deborah Andrade CNP Abdominal bloating (Primary Dx); Gastroesophageal reflux disease, unspecified whether esophagitis present 11/16/2024 Telephone [facility] [address] [place] [address] Deborah Andrade CNP Chart prep 11/10/2024 11:15 AM EST Telemedicine [address] [address] Deborah Andrade CNP Cystic acne (Primary Dx); Nausea; Morbid obesity (CMS/HCC); Influenza-like illness 11/10/2024 Travel 11/08/2024 Orders Only GENERIC EXTERNAL DATA DEPARTMENT Provider, Generic External Data 10/13/2024 3:30 PM EST Office Visit [facility] [address] [place] [address] Deborah Andrade CNP Morbid obesity (CMS/HCC) (Primary Dx); Eczema, unspecified type; Cystic acne; Generalized anxiety disorder with panic attacks 10/05/2024 11:30 AM EST Telemedicine [facility] [address] [place] [address] Sajan Lucas MD COVID (Primary Dx); Subacute cough; Fever and chills 10/05/2024 Travel 10/05/2024 Telephone [facility] [address] [place] [address] Deborah Andrade CNP Nurse Triage from Last 3 Months Immunizations Name Administration Dates Next Due DTaP 04/24/2004,2000,2000 DTaP / Hep B / IPV 2000 HPV 9-Valent 08/18/2015 HPV, Quadrivalent 01/03/2015,01/06/2013 Hep A, ped/adol, 2 dose 08/18/2015,01/03/2015 Hep B, Adolescent or Pediatric 2000,1999,2000 Hep B, adult 01/08/2024 HiB, unspecified 2000,2000 Hib (PRP-T) 2000 IPV 04/24/2004,2000,2000 Influenza injectable quadriv alent preservative free 11/10/2023,11/18/2019,07/02/2016,08/18 MMR 05/11/2020,04/24/2004,02/11/2001 Meningococcal MCV4P ACYW-135 07/02/2016,01/07/20 13 Pfizer Covid-19 Vaccine 12+ 11/10/2023 Tdap 02/29/2020,03/19/2019,01/06/2013 Varicella 01/03/2015,01/06/2013,02/11/2001 Family History Medical History Relation Name Comments DM2,arthritis,asthma Maternal Grandfather Ovarian cancer Mother Breast cancer Mother's Sister Relation Name Status Comments Maternal Grandfather Mother Mother's Sister Social History Tobacco Use Types Packs/Day Years Used Date Smoking Tobacco: Never Smokeless Tobacco: Never Tobacco Cessation:Counseling Given: Not Answered Alcohol Use Standard Drinks/Week Comments Not Currently 0 (1 standard drink = 0.6 oz pur e alcohol) social Depression Answer Date Recorded Patient Health Questionnaire-9 Score 0 11/19/2024 Patient Health Questionnaire-9 Score 0 11/19/2024 Last PHQ-9: Questionnaire Data Not on file 0 11/19/2024 Housing Stability Answer Date Recorded What is your housing situation today? I have beulah villagran 11/19/[address] you li ve. Do you have problems with any of the following? None of the above 11/19/2024 Food Insecurity Answer Date Recorded Within the past 12 months, y ou worried that your food would run out before you got money to buy more: Never True 11/19/2024 Within the past 12 months,th e food you bought just didn't last and you didn't have enough money to get more: Never True 03/2025 Transportation Answer Date Recorded In the past 12 months, has l ack of transportation kept you from medical appts, meetings, work or from getting things needed for daily living? No 11/19/2024 Utilities Answer Date Recorded In the past 12 months, has t he electric, gas, oil or water company threatened to shut off services in your home? No 11/19/2024 Depression Answer Date Recorded Patient Health Questionnaire-2 Score 0 11/19/2024 Internet Access Answer Date Recorded Internet Access Q1 Yes 11/19/2024 Internet Access Q2 Not on file 11/19/2024 Comments No Sex and Gender Information Value Date Recorded Sex Assigned at Female 07/15/2022 10:27 AM EDT Legal Sex Female 10:27 AM EDT Gender Identity Female 07/15/2022 10:27 AM EDT Sexual Orientation Straight 07/15/2022 10 :27 AM EDT Last Filed Vital Signs Vital Sign Reading Time Taken Comments Blood Pressure 91/57 12/31/2024 11:12 AM EDT Pulse 97 12/31/2024 11:12 AM EDT Temperature 36.4 ??C (97.5 ??F) 12/31/2024 1 1:12 AM EDT Respiratory Rate 18 12/31/2024 11:1 2 AM EDT Oxygen Saturation 97% 12/31/2024 11: 12 AM EDT Inhaled Oxygen Concentration - - Weight 94.7 kg (208 lb 12.8 oz) 025 11:12 AM EDT Height 160 cm (5' 3 ) 12/17/2024 11:27 AM EDT Body Mass Index 36.99 12/17/2024 11:27 AM EDT Plan of Treatment Upcoming Encounters Date Type Department Care Team (Late st Contact Info) Description 02/11/2025 2:15 PM EDT Office Visit [facility] [address] [place], [place] [phone] Deborah Andrade, FAIRING MAN [address] [place], [place] [phone] Health Maintenance Due Date Last Done Comments Family Planning (PISQ) 02/11/2015 COVID-19 Vaccine ( season) 2024 11/10/2023, 04/04/2021, 03/07/2021 Influenza Vaccine (#1) 2024 , 11/18/2019, 07/02/2016, Additional history exists Alcohol/Substance Use Screening 10/13/2025 10/13/2024 Depression Screening 11/19/2025 11/19/2024, 11/20/19 SDOH Screening 11/19/2025 11/19/2024 Tobacco Screening 12/17/2025 12/17/2024 Pap Smear 01/20/2027 01/21/2024, 03/07/2021 Lipid Panel 11/11/2028 11/11/2023, 06/27/2022 DTaP/Tdap/Td Vaccines (8 - Td or Tdap) 02/28/2030 02/29/2020, 03/19/2019, 01/06/2013, Additional history exists Zoster Vaccines (1 of 2) 02/11/2050 RSV Patients and Patients Aged 60 years or older (1 - 1-dose 75+ series) 02/11/2075 HIB Vaccines Aged Out 2000, 12/1999, 2000 No longer eligible based on patient's age to complete this topic IPV Vaccines Completed 04/24/2004, 09/15, 2000, Additional history exists HPV Vaccines Completed 08/18/2015, 12/15, 01/06/2013 Hepatitis A Vaccines Completed 08/18/2015, 01/04/20 15 Meningococcal Vaccine Completed 07/02/2016, 013 HIV Screening Completed 11/11/2023, 04/16, 11/23/2019 Hepatitis C Screening Completed 11/11/2023 , 05/08/2022, 11/23/2019 Hepatitis B Vaccines Completed 01/08/2024, 2000, 2000, Additional history exists Pneumococcal Vaccine: Pediatrics (0 to 5 Years) and At-Risk Patients (6 to 49) Years) Aged Out No longer eligible based on patient's age to complete this topic RSV under 20 months Aged Out No longe r eligible based on patient's age to complete this topic Rotavirus Vaccines Aged Out No longer eligible based on patient's age to complete this topic Procedures Procedure Name Priority Date/Time Associated Diagnosis Comments CELIAC DISEASE COMPREHENSIVE PANEL Routine 11/19/2024 1:40 PM EST Abdominal bloating FERRITIN Routine 11/19/2024 1:40 PM EST Syncope, unspecified syncope type IRON AND TOTAL IRON BINDING CAPACITY Routine 11/19/2024 1:40 PM EST Syncope, unspecified syncope type COMPREHENSIVE METABOLIC PANEL Routine 11/19/2024 1:40 PM EST Syncope, unspecified syncope type CBC Routine 11/19/2024 1:40 PM EST Syncope, unspecified syncope type VITAMIN B12 Routine 11/19/2024 1:40 PM EST Low vitamin B12 level HCG, TOTAL, QN Routine 11/08/2024 11:11 AM EST LIPASE Routine 11/08/2024 11:11 AM EST MAGNESIUM Routine 11/08/2024 11:11 AM EST BASIC METABOLIC PANEL Routine 11/08/2024 11:11 AM EST HEPATIC FUNCTION PANEL Routine 11:11 AM EST CBC WITH AUTO DIFFERENTIAL Routine 11/08/2024 11:11 AM EST SARS COV2/INFLUENZA A/B AND RSV RNA QL NAAT Routine 11/08/2024 11:11 AM EST PAP SMEAR Routine 01/21/2024 2:33 PM EDT HEPATITIS C AB W/REFL TO HCV RNA, QN, PCR Routine 11/11/2023 2:54 PM EST Annual physical exam HIV 1/2 ANTIGEN/ANTIBODY, FOURTH GENERATION W/RFL Routine 11/11/2023 2:54 PM EST Annual physical exam LIPID PANEL, STANDARD Routine 11/11/2023 2:54 PM EST Annual physical exam from Last 3 Months or Most Recently Relevant to Health Maintenance Results * Iron And Total Iron Binding Capacity (11/19/2024 1:40 PM EST) Iron 87 30 - 160 mcg/dL [facility] Total Iron Binding Capacity 306 228 - 428 mcg/dL [facility] Percent Iron Saturation 28 15 - 50 % [facility] Unsaturated Iron Binding 219 ug/dL [facility] Blood Venous blood specimen / Unknown 11/19/2024 1:40 PM EST 11/19/2024 4:11 PM EST us Yanci Olivier MD LAB BLOOD ORDERAB LES Final Result [facility] [address] [place] [phone] * Celiac Disease Comprehensive Panel (11/19/2024 1:40 PM EST) Immunoglobulin A 199 47 - 310 mg/dL [facility] Comment:THIS TEST WAS PERFOR MED AT:[facility] [address] [phone] MARIA MD Transglutaminase IgA <1.0 U/mL [facility] Comment:Value Interpretation ----- <15.0 Antibody not detected> or = 15.0 Antibody detected Interpretation SEE NOTE [facility] Comment:No serological evide nce of celiac disease.tTG IgA may normalize in individuals with celiac diseasewho maintain a gluten-free diet. Consider HLA DQ2 andDQ8 testing to rule out celiac disease. Celiac diseaseis extremely rare in the absence of DQ2 or DQ8. Blood Venous blood specimen / Unknown 11/19/2024 1:40 PM EST 11/19/2024 4:11 PM EST [facility] LAB BLOOD ORDERABLES Christy aguirre Result [facility] [address] [place] [phone] * CBC (11/19/2024 1:40 PM EST) White Blood Count 9.1 4.8 - 10.8 X10*3/uL [facility] Red Blood Count 5.33 4.20 - 5.50 X10*6/uL [facility] Hemoglobin 14.6 12.0 - 16.0 g/dl [facility] Hematocrit 43.9 37.0 - 47.0 % [facility] Mean Corpuscular Volume 82.4 80.0 - 98.0 fL [facility] Mean Corpuscular Hemoglobin 27.4 27.0 - 33.0 pg [facility] Mean Corpuscular HGB Conc 33.3 31.0 - 35.0 g/dl [facility] Red Cell Distribution Width 12.7 11.0 - 16.0 % [facility] Platelet Count 336 160 - 400 X10*3/uL [facility] Mean Platelet Volume 9.8 9.4 - 12.3 fL [facility] NRBC Pct Auto 0.0 0.0 - 0.2 /100WBC [facility] NRBC Abs Auto 0.000 0.0 - 0.012 X10*3/uL [facility] Blood Venous blood specimen / Unknown 11/19/2024 1:40 PM EST 11/19/2024 4:11 PM EST us Yanci Olivier MD LAB BLOOD ORDERAB LES Final Result Performing Organization Address City/[facility]/ZIP Co de Phone Number [facility] [address] [place] [phone] * (ABNORMAL) Ferritin (11/19/2024 1:40 PM EST) Pathologist [facility] Ferritin 155(H) 10 - 122 ng/mL [facility] Blood Venous blood specimen / Unknown 11/19/2024 1:40 PM EST 11/19/2024 4:11 PM EST us Yanci Olivier MD LAB BLOOD ORDERAB LES Final Result Performing Organization Address [facility] Co de Phone Number [facility] [address] [place] [phone] * Vitamin B12 (11/19/2024 1:40 PM EST) Pathologist [facility] Vitamin B12 365 200 - 900 pg/mL [facility] Comment:NORMAL 200-900 PG/M L INDETERMINATE 160-199 PG/ML DEFICIENT < 160 PG/ML Blood Venous blood specimen / Unknown 11/19/2024 1:40 PM EST 11/19/2024 4:11 PM EST us Yanci Olivier MD LAB BLOOD ORDERAB LES Final Result Performing Organization Address [facility] Co de Phone Number [facility] [address] [place] [phone] * (ABNORMAL) Comprehensive Metabolic Panel (11/19/2024 1:40 PM EST) Sodium 139 135 - 145 mmol/L [facility] Potassium 4.1 3.3 - 5.1 mmol/L [facility] Chloride 107 96 - 108 mmol/L [facility] Carbon Dioxide 25 22 - 29 mmol/L [facility] Anion Gap 11(L) 12 - 20 [facility] Urea Nitrogen (BUN) 11 9 - 16 mg/dL [facility] Creatinine, Serum 0.68 0.5 - 1.4 mg/dL [facility] Estimated Glomerular Filt Rate >60 [facility] Comment:Chronic Kidney Disea se: Estimated GFR < 60 mL/min/1.90e8Neuzfl Kidney Disease: Estimated GFR < 15 mL/min/1.73m2 Glucose 81 60 - 115 mg/dL [facility] Calcium 9.5 8.4 - 10.2 mg/dL [facility] Bilirubin, Total 0.9 0.0 - 1.0 mg/dL [facility] Aspartate Amino Transferase 27 5 - 31 U/L [facility] Alanine Aminotransferase 32(H) 0 - 31 U/L [facility] Total Protein 8.1(H) 6.5 - 8.0 g/dL [facility] Albumin Level 4.3 3.5 - 5.0 g/dL [facility] Alkaline Phosphatase 63 39 - 117 U/L [facility] Blood Venous blood specimen / Unknown 11/19/2024 1:40 PM EST 11/19/2024 4:11 PM EST us Yanci Olivier MD LAB BLOOD ORDERAB LES Final Result [facility] [address], [place] [phone] * SARS-CoV-2 RNA, Influenza A/B, and RSV RNA, Ql NAAT (11/08/2024 11:11 AM EST) Influenza A PCR NEGATIVE Negative [facility] Influenza B PCR NEGATIVE Negative [facility] Resp Syncy Virus RNA Qual PCR NEGATIVE Negative [facility] SARS COV2 PCR NEGATIVE Negative [facility] Comment:All test results mus t be correlated with clinical findings.Negative results do not preclude SARS-CoV2, influenza Avirus, influenza B virus and/or RSV infectionand should not be used as the sole basis for treatment orother patient management decisions. Negative results must becombined with clinical observations, patient history, andepidemiological information.This test has not been evaluated for monitoring treatment ofinfection.This test has been authorized by the FDA under an EmergencyUse Authorization (EUA) for use by authorized laboratories.Testing performed on the [employer] GeneXpert utilizingreal-time RT-PCR.All SARS CoV2 and positive influenza A/B results arereported to [facility]. 11/08/2024 11:1 1 AM EST 11/08/2024 11:32 AM EST us Generic External Data Provider LAB MICROBIOLOGY - GENERAL ORDERABLES Final Result [facility] [address] [place] [phone] * (ABNORMAL) CBC auto differential (11/08/2024 11:11 AM EST) White Blood Count 9.1 4.8 - 10.8 X10*3/uL [facility] Red Blood Count 5.49 4.20 - 5.50 X10*6/uL [facility] Hemoglobin 15.2 12.0 - 16.0 g/dl [facility] Hematocrit 43.6 37.0 - 47.0 % [facility] Mean Corpuscular Volume 79.4(L) 80.0 - 98.0 fL [facility] Mean Corpuscular Hemoglobin 27.7 27.0 - 33.0 pg [facility] Mean Corpuscular HGB Conc 34.9 31.0 - 35.0 g/dl [facility] Red Cell Distribution Width 12.4 11.0 - 16.0 % [facility] Platelet Count 204 160 - 400 X10*3/uL [facility] Mean Platelet Volume 9.8 9.4 - 12.3 fL [facility] Neutrophils Percent Auto 80.7(H) 45 - 73 % [facility] Imm Gran Pct Auto 0.7(H) 0.0 - 0.4 % [facility] Lymphocytes Percent Auto 8.9(L) 20 - 40 % [facility] Monocytes Percent Auto 9.3 2 - 11 % [facility] Eosinophils Percent Auto 0.2 0 - 4 % [facility] Basophils Percent Auto 0.2 0 - 2 % [facility] NRBC Pct Auto 0.0 0.0 - 0.2 /100WBC [facility] Neutrophils Absolute Auto 7.3 2.0 - 8.3 x10*3/uL [facility] Imm Gran Abs Auto 0.06(H) 0.00 - 0.03 X10*3/uL [facility] Lymphocytes Absolute Auto 0.8(L) 1.2 - 4.9 X10*3/uL [facility] Monocytes Absolute Auto 0.8 0.1 - 1.2 X10*3/uL [facility] Eosinophils Absolute Auto 0.0 0.0 - 0.4 X10*3/uL [facility] Basophils Absolute Auto 0.0 0.0 - 0.2 X10*3/uL [facility] NRBC Abs Auto 0.000 0.0 - 0.012 X10*3/uL [facility] 11/08/2024 11:1 1 AM EST 11/08/2024 11:32 AM EST us Generic External Data Provider LAB BLOOD ORDERAB LES Edited Result - Final [facility] [address] [place] [address] [phone] * hCG, Total, Quantitative (11/08/2024 11:11 AM EST) HCG Quantitative <2 mIU/mL [facility] Comment:Weeks post LMP Appro ximate hCG(Last Menstrual Period) Range (mIU/ml)3 - 4 weeks 9 - 1304 - 5 weeks 75 - 2,6005 - 6 weeks 850 - 20,8006 - 7 weeks 4000 - 100,2007 - 12 weeks 11,500 - 289,14108 - 16 weeks 18,300 - 137,11321 - 29 weeks (2nd trimester) 1,400 - 53,68186 - 41 weeks (3rd trimester) 940 - 60,000The Martinez B- hCG assay is used for the early detection ofpregnancy; it cannot be used to diagnose any conditionunrelated to . If a B-hCG level is not supportedby the clinical evidence, results should be confirmed by analternative method (qualitative urine hCG, for example). 11/08/2024 11:1 1 AM EST 11/08/2024 11:32 AM EST Generic External Data Provider LAB BLOOD ORDERAB LES Final Result Performing Organization Address [facility] Co de Phone Number [facility] [address] [place] [address] [phone] * Magnesium (11/08/2024 11:11 AM EST) Magnesium 2.1 1.6 - 2.6 mg/dL [facility] 11/08/2024 11:1 1 AM EST 11/08/2024 11:32 AM EST Generic External Data Provider LAB BLOOD ORDERAB LES Final Result Performing Organization Address [facility] Co de Phone Number [facility] [address] [place] [address] [phone] * Lipase (11/08/2024 11:11 AM EST) Lipase 20 8 - 78 U/L [facility] 11/08/2024 11:1 1 AM EST 11/08/2024 11:32 AM EST Generic External Data Provider LAB BLOOD ORDERAB LES Final Result Performing Organization Address [facility] Co de Phone Number [facility] [address] [place] [address] [phone] * (ABNORMAL) Hepatic Function Panel (11/08/2024 11:11 AM EST) Pathologist [facility] Bilirubin, Total 1.2(H) 0.0 - 1.0 mg/dL [facility] Bilirubin, Direct 0.5 0.0 - 0.5 mg/dL [facility] Aspartate Amino Transferase 53(H) 5 - 31 U/L [facility] Comment:Slight Hemolysis.Int erpret result with caution. Alanine Aminotransferase 56(H) 0 - 31 U/L [facility] Total Protein 8.1(H) 6.5 - 8.0 g/dL [facility] Albumin Level 4.0 3.5 - 5.0 g/dL [facility] Alkaline Phosphatase 90 39 - 117 U/L [facility] 11/08/2024 11:1 1 AM EST 11/08/2024 11:32 AM EST Generic External Data Provider LAB BLOOD ORDERAB LES Final Result Performing Organization Address [facility] Co de Phone Number [facility] [address] [place] [address] [phone] * (ABNORMAL) Basic Metabolic Panel (11/08/2024 11:11 AM EST) Pathologist [facility] Sodium 135 135 - 145 mmol/L [facility] Potassium 3.6 3.3 - 5.1 mmol/L [facility] Comment:Slight Hemolysis.Int erpret result with caution. Chloride 105 96 - 108 mmol/L [facility] Carbon Dioxide 18(L) 22 - 29 mmol/L [facility] Anion Gap 16 12 - 20 [facility] Urea Nitrogen (BUN) 5(L) 9 - 16 mg/dL [facility] Creatinine, Serum 0.68 0.5 - 1.4 mg/dL [facility] Creatinine Clr Calc Pharmacy 145.5 [facility] Comment:Provided height and weight: 160.02 cm,102.1 kg.eGFR (calculated from the MDRD study equation) and eCrCl(calculated from the Cockcroft-Gault equation) are based ondifferent parameters and may not yield comparable results.If eCrCl result is absurd, please check patient'sheight/weight. Estimated Glomerular Filt Rate >60 [facility] Comment:Chronic Kidney Disea se: Estimated GFR < 60 mL/min/1.75o5Whkplm Kidney Disease: Estimated GFR < 15 mL/min/1.73m2 Glucose 100 60 - 115 mg/dL [facility] Calcium 9.2 8.4 - 10.2 mg/dL [facility] 11/08/2024 11:1 1 AM EST 11/08/2024 11:32 AM EST us Generic External Data Provider LAB BLOOD ORDERAB LES Final Result [facility] [address] [place] [address] [phone] * Pap Smear (01/21/2024 2:33 PM EDT) 01/21/2024 2:33 PM EDT 01/22/2024 9:00 AM EDT Narrative [facility] - 02/07/2024 5:46 PM EDT ----- ------- Name: Summer Sandoval ? Age/Sex: 23/F ? : 2000 Unit#: [id number] ?? Attend Dr: Maura Ramirez CNM ?Re01/21/24 ?Status: DEP REF ? Location: HO.LNP ?Disch: ? ----- ------- SPEC : [id number] ? RECD: 01/22/24-899 ? STATUS: ??SOUT ? REQ NUM: [id number] ? ANGELIKA: 01/21/24-1433 ? SUBM DR: Maura Ramirez CNM ? ENTERED: ??01/22/24-4 ?SP TYPE: Pap Smr ?OTHR DR: Lisa Bennett MD ? ORDERED: ??Pap Smear ? Interpretation ?? Satisfactory for evaluation. ?? Negative for intraepithelial lesion or malignancy. ?Clinical Information LMP: 01/01/24 Previous PAP test: 2020, WNL ? Material Received ?? ThinPrep-Cervical Copies To: ?? Lisa Bennett MD ?? [address] [facility] ?? [place] [address] ? Maura Ramirez CNM ?? [address] [facility] ?? [place] [address] ?? [phone] ----- ------- Signed (signature on file) Alison West Caterina 02/07/241745 ? ----- ------- ? END OF REPORT ? us Generic External Data Provider LAB CYTOLOGY POLO KINNEY Final Result [facility] [address] [place] [address] [place] [phone] * Hepatitis C Antibody with Reflex to HCV, RNA, Quantitative, Real-Time PCR (11/11/2023 2:54 PM EST) Hepatitis C Antibody Nonreactive Nonreactive [facility] Comment:Antibodies to HCV no t detected; does not exclude early acuteHCV infection. Blood Venous blood specimen / Unknown 11/11/2023 2:54 PM EST 11/11/2023 4:23 PM EST us Yanci Olivier MD LAB BLOOD ORDERAB LES Final Result Performing Organization Address City/[facility] Co de Phone Number [facility] [address] [place] [address] [phone] * HIV-1/2 Antigen and Antibodies, Fourth Generation, with Reflexes (11/11/2023 2:54 PM EST) HIV AB/AG Nonreactive Nonreactive [facility] Comment:HIV-1 p24 Ag and/or HIV-1/HIV-2 Ab not detected.A test result that is nonreactive does not exclude thepossibility of exposure to or infection with HIV-1 and/orHIV-2. Nonreactive results in this assay for individualswith prior exposure to HIV-1 and/or HIV-2 may be due toantigen and antibody levels that are below the limit ofdetection of this assay.The [employer] HIV Ag/Ab Combo assay result andsupplemental assay results should be interpreted inconjunction with the patient's clinical presentation,history and other laboratory results. If the results areinconsistent with clinical evidence, additional testing issuggested to confirm the result. Blood Venous blood specimen / Unknown 11/11/2023 2:54 PM EST 11/11/2023 4:23 PM EST us Yanci Olivier MD LAB BLOOD ORDERAB LES Final Result Performing Organization Address City/[facility]/ZIP Co de Phone Number [facility] [address] [place] [phone] * (ABNORMAL) Lipid Panel, Standard (11/11/2023 2:54 PM EST) Triglycerides 96 <150 mg/dL [facility] Comment:Desirable Triglyceri de: less than 150 mg/dLBorderline High Triglyceride 150-199 mg/dLHigh Triglyceride: 200-499 mg/dLVery High Triglyceride: greater than or equal to 5OO mg/dL Cholesterol 106 <200 mg/dL [facility] Comment:Desirable Cholestero l: less than 200 mg/dLBorderline High Cholesterol: 200-239 mg/dLHigh Cholesterol: greater than 239 mg/dL LDL Cholesterol Calculated 55 <100 mg/dL [facility] Comment:Desirable LDL: less than 100 mg/dLNear Optimal/Above Optimal LDL: 110- 129 mg/dLBorderline High LDL: 130-159 mg/dLHigh LDL: 160-189 mg/dLVery High LDL: greater than or equal to 190 mg/dL HDL Cholesterol 32(L) >40 mg/dL [facility] Comment:Desirable HDL: great er than 40 mg/dL Note: This HDL assay may give artificially low results in patients with liver disease. Blood Venous blood specimen / Unknown 11/11/2023 2:54 PM EST 11/11/2023 4:23 PM EST Yanci Olivier MD LAB BLOOD ORDERAB LES Final Result Performing Organization Address City/State/[facility] Co de Phone Number [facility] [address] [place] [address] [phone] from Last 3 Months or Most Recently Relevant to Health Maintenance [place] [address] [address] C3 Care Teams Software Team Leader Relationship Specialty Start Date End Date Deborah Andrade CNP [address] [place] [phone] PCP - General Family Medicine 09/01/24
--- OUTSIDE RECORDS SUMMARY | 2024-12-31 12:45 | XMS_ITS | Encounter Summary ---
Author Organization [employer] Address [address] [facility] [address] [place] [address] Care Team Providers Care Waiter/Waitress Informal Name Role Phone AndradeOlegdebdenita KAREEM Primary Care Provider [phone] Encounter Details Date Type Department Care Team (Latest Contact Info) Description 12/31/2024 Travel Social History Tobacco Use Types Packs/Day Years Used Date Smoking Tobacco: Never Smokeless Tobacco: Never Alcohol Use Standard Drinks/Week Comments Not Currently [...] Description 02/11/2025 2:15 PM EDT Office Visit [facility] [address] [place] [address] Deborah Andrade CNP [address] [place] [address] documented as of this encounter Visit Diagnoses Not on filedocumented in this encounter Additional Health Concerns Assessment Noted Time PHQ-9 Depression Total Score: 0 11/20/19 25 1:11 PM EST documented as of this encounter Care Teams Waiter/Waitress Informal Relationship Specialty Start Date End Date Deborah Andrade CNP [address] [place] [address] PCP - General Family Medicine 09/01/24 documented as of this encounter
--- OUTSIDE RECORDS SUMMARY | 2024-12-31 12:45 | XMS_ITS | Clinical Summary ---
Author Organization [facility] Address [address] [place] [address] Care Team Providers Care Animal Assistant Name Role Phone Unavailable Primary Care Provider Unavailabl e Surgical History Surgery Date Site/Laterality Comments OTHER SURGICAL HISTORY 2012 PROCEDURE: TX TONSILLECTOMY & ADENOIDECTOMY AGE 12/> Medical History Medical History Date Comments Morbid obesity with BMI of 4 0.0-44.9, adult (CMS/HCC V24, CMS/HCC V28) DX:Morbid obesity wit h BMI of 40.0-44.9, adult ([facility]) Family History Medical History Relation Name Comments [...] - 2023-2 5 season) 2024 Influenza Vaccine (Season Ended) 2025 HIB Vaccines Aged Out No longer eligi [...] age to complete this topic Meningococcal B Vaccine Aged Out No l onger eligible based on patient's age to complete [...]
--- OUTSIDE RECORDS SUMMARY | 2024-12-31 12:45 | XMS_ITS | Encounter Summary ---
Author Organization [employer] Address [address] [facility] [address]t [place] [address] Care Team Providers Care Party Plan Sales Unit Advisor Name Role Phone Deborah Andrade CNP Primary Care Provider [phone] Reason for Visit * Reason Comments Follow-up Encounter Details Date Type Department Care Team (Late st Contact Info) Description 12/31/2024 11:15 AM EDT Office Visit [facility] [address] [place] [address] Deborah Andrade CNP [address] [place] [address] Obesity (BMI 30-39.9) (Primary Dx); Chronic migraine with aura without status migrainosus, not intractable; Easy bruising; Low blood pressure reading Social History Tobacco Use Types Packs/Day Years [...] AM EDT documented as of this encounter Last Filed Vital Signs Vital Sign Reading [...] 12.8 oz) 025 11:12 AM EDT Height - - Body Mass Index 36.99 12/17/2024 11:27 AM EDT documented in this encounter Plan of Treatment Upcoming Encounters Date Type Department Care Team (Late st Contact Info) Description 02/11/2025 2:15 PM EDT Office Visit [facility] [address] [place] [address] Deborah Andrade, KAREEM [address] [place], [place] [phone] documented as of this encounter Visit Diagnoses Diagnosis Obesity (BMI 30-39.9)- Primary Chronic migraine with aura without status migrainosus, not intractable Easy bruising Other symptoms involving skin and integumentary tissues Low blood pressure reading Nonspecific low blood pressure reading documented in this encounter Additional Health Concerns Assessment Noted Time PHQ-9 Depression Total Score: 0 11/20/19 25 1:11 PM EST documented as of this encounter Care Teams Party Plan Sales Unit Advisor Relationship Specialty Start Date End Date Deborah Andrade CNP [address] [place] [phone] PCP - General Family Medicine 09/01/24 documented as of this encounter
--- OUTSIDE RECORDS SUMMARY | 2024-12-31 12:45 | XMS_ITS | Encounter Summary ---
Author Organization [employer] Address [address] [place] [address] 7t [place] [address] Care Team Providers Care Industrial Chemist Name Role Phone Christy Thornton Primary Care Provider [phone] Yanci Collins MD Primary Care Pro vider Deborah Andrade CNP Primary Care Provider [phone] Reason for Visit * Reason Onset Date Comments Appointment Request 10/20/2023 Encounter Details Date Type Department Care Team (Late st Contact Info) Description 10/20/2023 Telephone [facility] [address] [place] [address] Christy Thornton FNP [address] [place] [address] Appointment Request Social History Tobacco Use Types Packs/Day Years Used Date Smoking Tobacco: Never Assessed Comments Unknown Sex and Gender Information Value Date Recorded Sex Assigned at Female 07/15/2022 10:27 AM EDT Legal Sex Female 10:27 AM EDT Gender Identity Female 07/15/2022 10:27 AM EDT Sexual Orientation Straight 07/15/2022 10 :27 AM EDT documented as of this encounter Miscellaneous Notes * Telephone Encounter - Tami Chau - 10/20/2023 11:10 AM EST Tc from pt requesting PE appt, needed for school, pt also need tb and vaccine records. documented in this encounter Plan of Treatment Upcoming Encounters Date Type Department Care Team (Late st Contact Info) Description 02/11/2025 2:15 PM EDT Office Visit [facility] [address] [place], [place] [phone] Deborah Andrade CNP [address] [place], [place] [phone] documented as of this encounter Visit Diagnoses Not on filedocumented in this encounter Care Teams Industrial Chemist Relationship Specialty Start Date End Date Christy Thornton FNP [address] [place] [address] [phone] PCP - General Family Medicine 06/05/23 11/13/23 Yanci Collins MD [address] [place] [address] [phone] PCP - General Internal Medicine 11/14/23 08/31/24 Deborah Andrade CNP [address] [place] [address] [phone] PCP - General Family Medicine 09/01/24 documented as of this encounter
[2024-12-31 13:19] LABS: MANUAL DIFF FLAG NO
[2024-12-31 13:28] LABS: Basophils Percent Auto 0.2 % (0-2); Eosinophils Absolute Auto 0.2 X10*3/uL (0.0-0.4); Eosinophils Percent Auto 2.1 % (0-4); Hematocrit 44.1 % (37.0-47.0); Hemoglobin 14.9 g/dl (12.0-16.0); Imm Gran Abs Auto 0.03 X10*3/uL (0.00-0.03); Imm Gran Pct Auto 0.4 % (0.0-0.4); Lymphocytes Absolute Auto 1.6 X10*3/uL (1.2-4.9); Lymphocytes Percent Auto 18.7 % (20-40); Mean Corpuscular HGB Conc 33.8 g/dl (31.0-35.0); Mean Corpuscular Hemoglobin 27.7 pg (27.0-33.0); Mean Platelet Volume 10.1 fL (9.4-12.3); Monocytes Absolute Auto 0.5 X10*3/uL (0.1-1.2); Monocytes Percent Auto 5.5 % (2-11); Neutrophils Absolute Auto 6.2 x10*3/uL (2.0-8.3); Neutrophils Percent Auto 73.1 % (45-73); Platelet Count 287 X10*3/uL (160-400); Red Blood Count 5.38 X10*6/uL (4.20-5.50); Red Cell Distribution Width 13.2 % (11.0-16.0); White Blood Count 8.5 X10*3/uL (4.8-10.8)
[2024-12-31 13:30] LABS: INTERNATIONAL NORM RATIO 1.1 (0.9-1.1); Prothrombin Time 12.8 SEC (10.9-12.4)
[2024-12-31 13:33] LABS: Partial Thromboplastin Time 31.9 SEC (26.0-36.8)
== END 2024-12-31 11:41 | disposition home or self-care (01) ==
LOC: HO.HHCL 11:40
DX: R23.3 Spontaneous ecchymoses (principal)
CPT/HCPCS: 36415; 85025; 85610; 85730

== ENCOUNTER 2025-01-05 09:00 | Outpatient (REF) | payer MEDICAID, SELFPAY ==
--- NOTE | ~2025-01-05 | US_ITS ---
CLINICAL HISTORY: chronic abdominal bloating US abdomen complete Comparison: None Findings: The visualized pancreas is normal. The aorta and inferior vena cava are normal caliber. The liver is normal in size and echotexture. There is no intrahepatic bile duct dilatation. The common duct is 3 mm in diameter. The gallbladder appears decompressed about multiple stones, limit interpretation. There is no sonographic Sinha sign. Mild focal wall thickening suggested. The main portal vein is antegrade. The right kidney is 10.6 cm in length. The left kidney is 11.0 cm in length. The spleen is mildly enlarged at 12.9 cm. No ascites. IMPRESSION: The gallbladder appears decompressed about multiple stones, limiting interpretation. No sonographic Sinha's. Mild wall thickening suggested. This document has been electronically signed by: Xu Lancaster MD on 01/06/2025 05:40:47
--- OUTSIDE RECORDS SUMMARY | 2025-01-05 09:43 | XMS_ITS | Encounter Summary ---
Author Organization [employer] Address [address] [facility] [address]t [place] [address] Care Team Providers Care Social Service Coordinator Name Role Phone Germán Reddy AGNCirstobal Primary Care Provider Unavail Christy NanceP Primary Care Provider [phone] Yanci Collins MD Primary Care Pro vider Deborah Andrade CNP Primary Care Provider [phone] Encounter Details Date Type Department Care Team (Latest Contact Info) Description 12/08/2020 Abstract [facility] Dental, Provider, DDS Social History [...] Description 02/11/2025 2:15 PM EDT Office Visit [facility] [address] [place] [address] Deborah Andrade CNP [address] [place] [address] documented as of this encounter Visit Diagnoses Not on filedocumented in this encounter Care Teams Social Service Coordinator Relationship Specialty Start Date End Date Germán Reddy AGNP PCP - General Family Medicine 06/26/22 06/04/23 Christy Thornton FNP [address] [place] [address] PCP - General Family Medicine 06/05/23 11/13/23 Yanci Collins MD [address] [place] [address] PCP - General Internal Medicine 11/14/23 08/31/24 Deborah Andrade CNP [address] [place] [address] PCP - General Family Medicine 09/01/24 documented as of this encounter
--- OUTSIDE RECORDS SUMMARY | 2025-01-05 09:43 | XMS_ITS | Encounter Summary ---
Author Organization [employer] Address [address] [place] [address] [address]t [place] [address] Care Team Providers Care Front Man Name Role Phone Christy Thornton Primary Care Provider [phone] Yanci Collins MD Primary Care Pro vider Deborah Andrade CNP Primary Care Provider [phone] Reason for Visit * Reason Onset Date Comments Appointment Request 10/20/2023 Encounter Details Date Type Department Care Team (Late st Contact Info) Description 10/20/2023 Telephone [facility] [address] [place] [address] Christy Thornton FNP [address] [place] [address] Appointment Request Social History Tobacco Use Types [...] EDT Office Visit [facility] [address] [place], [place] [phone] Deborah Andrade CNP [address] [place], [place] [phone] documented as of this encounter Visit Diagnoses Not on filedocumented in this encounter Care Teams Front Man Relationship Specialty Start Date End Date Christy Thornton FNP [address] [place] [address] [phone] PCP - General Family Medicine 06/05/23 11/13/23 Yanci Collins MD [address] [place] [address] [phone] PCP - General Internal Medicine 11/14/23 08/31/24 Deborah Andrade CNP [address] [place] [address] [phone] PCP - General Family Medicine 09/01/24 documented as of this encounter
--- OUTSIDE RECORDS SUMMARY | 2025-01-05 09:43 | XMS_ITS | Encounter Summary ---
Author Organization [employer] Address [address] [facility] [address]t [place] [address] Care Team Providers Care Fire Prevention Inspector Name Role Phone AndradeOlegdebdenita KAREEM Primary Care Provider [phone] Encounter Details Date Type Department Care Team [...] Description 02/11/2025 2:15 PM EDT Office Visit [facility] [address] [place] [address] Deborah Andrade CNP [address] [place] [address] documented as of this encounter Visit Diagnoses Not on filedocumented in this encounter Additional Health Concerns Assessment Noted Time PHQ-9 Depression Total Score: 0 11/20/19 25 1:11 PM EST documented as of this encounter Care Teams Fire Prevention Inspector Relationship Specialty Start Date End Date Deborah Andrade CNP [address] [place] [address] PCP - General Family Medicine 09/01/24 documented as of this encounter
--- OUTSIDE RECORDS SUMMARY | 2025-01-05 09:43 | XMS_ITS | Encounter Summary ---
Author Organization [employer] Address [address] [place] [address] [address] [place] [address] Care Team Providers Care [employer] Developer Name Role Phone Christy Thornton Primary Care Provider [phone] Yanci Collins MD Primary Care Pro vider Deborah Andrade CNP Primary Care Provider [phone] Reason for Visit * Reason Onset Date Comments Nurse Triage 10/20/2023 Encounter Details Date Type Department Care Team (Late st Contact Info) Description 10/20/2023 Telephone [facility] [address] [place] [address] Christy Thornton FNP [address] [place] [address] Nurse Triage Social History Tobacco Use Types [...] Pt denies fever. Pt was seen in [facility] 07/29/24 with dx of subacute maxillary sinusitis and was prescribed augmentin for 7 days and flonase nasal spray. Pt did get better but,all of the same symtpoms have come back over the last 3 days. Pt continues with flonase nasal spraywithout effect, can't taste anything. Pt is advised to come to [facility] today to be seen by provider [...] Description 02/11/2025 2:15 PM EDT Office Visit [facility] [address], [place] [phone] Deborah Andrade CNP [address] [place] [address] documented as of this encounter Visit Diagnoses Not on filedocumented in this encounter Care Teams [employer] Relationship Specialty Start Date End Date Christy Thornton FNP [address] [place] [address] PCP - General Family Medicine 06/05/23 11/13/23 Yanci Collins MD [address] [place] [address] PCP - General Internal Medicine 11/14/23 08/31/24 Deborah Andrade CNP [address] [place] [address] PCP - General Family Medicine 09/01/24 documented as of this encounter
--- OUTSIDE RECORDS SUMMARY | 2025-01-05 09:43 | XMS_ITS | Clinical Summary ---
Author Organization [employer] Address [address] [place] [address] Care Team Providers Care Cat Scan Technologist Name Role Phone Deborah Andrade KAREEM Primary Care Provider [phone] Allergies Active Allergy Reactions Criticality Noted Date [...] to seek care at urgent care or [facility] if her symptoms do not improve by end of week. Sent zofran to pharmacy for her nausea Advised ample hydration and handwashing Eczema 10/13/2024 Assessment & Plan (10/13/2024 4:36 PM EST): Will send triamcinolone cream to apply BID to affected areas Also advised pt to try tub of cerave moisturizing cream to apply to affected areas as well Referral placed to [facility] derm clinic Cystic acne 10/13/2024 Assessment & [...] , Patient to reach out to [facility] team as needed, and Patient to engage [...] -if no better will need to se team leader surgery -f w PCP in 4 weeks to [...] reduction of 20-30% of maintenance calories; sees order picker. Recommended to decrease soda and sugary beverage consumption. Recommended at least 20 g per meal of protein to assist with satiety. Recommended at least 150 min/week of moderate intensity exercise. F/u in 6 weeks to evaluate SE and weight loss Assessment & Plan (11/11/2023 3:03 PM EST): Morbid obesity -Advised pt to improve diet and exercise,discussed healthy life style -discussed order picker referral -referred today -may need to discuss about bariatric surgery if not able to lose weight Family hx-malignancy 11/11/2023 Assessment & Plan (11/11/2023 3:03 PM EST): Mother w ovarian ca and maternal aunt breast ca ---referred today to genetic specialist Health care maintenance 11/11/2023 Assessment & Plan (11/11/2023 3:04 PM EST): -contraception : IUD -pap smear : 01/2023 Neg per pt at [facility] [place] ---states has apt w SKIN DIVING TEACHER for 01/2024 -vaccines s/p hepAx2, hep Bx3,HPV [...] Plan (11/11/2023 3:05 PM EST): -F w SKIN DIVING TEACHER last seen 08/2023 -Pelvic US 08/22/2023 1. [...] , Patient to reach out to [facility] team as needed, and Patient to engage [...] Description 12/31/2024 11:15 AM EDT Office Visit [facility] [address] [place] [phone] Deborah Andrade CNP Obesity (BMI 30-39.9) (Primary Dx); Chronic migraine with aura without status migrainosus, not intractable; Easy bruising; Low blood pressure reading 12/31/2024 Travel 12/22/2024 Telephone [facility] [address] [place] [address] Deborah Andrade CNP 12/17/2024 11:15 AM EDT Office Visit [facility] [address] [place] [address] Deborah Andrade CNP Morbid obesity (CMS/HCC) (Primary Dx); Easy bruising 12/17/2024 Travel 12/15/2024 Telephone [facility] [address] [place] [address] Deborah Andrade CNP chart prep 12/14/2024 Travel 12/10/2024 11:15 AM EDT Telemedicine [facility] [address] [place] [address] Sajan Lucas MD Morbid obesity (CMS/HCC) (Primary Dx) 12/10/2024 Travel 11/26/[address] [facility] () Department [address] [place] [phone] Provider, Population Health Generic 11/19/2024 1:00 PM EST Office Visit [address] [address] Deborah Andrade CNP Abdominal bloating (Primary Dx); Gastroesophageal reflux disease, unspecified whether esophagitis present 11/16/2024 Telephone [facility] [address] [place] [address] Deborah Andrade CNP Chart prep 11/10/2024 11:15 AM EST Telemedicine [address] [address] Deborah Andrade CNP Cystic acne (Primary Dx); Nausea; Morbid obesity (CMS/HCC); Influenza-like illness 11/10/2024 Travel 11/08/2024 Orders Only GENERIC EXTERNAL DATA DEPARTMENT Provider, Generic External Data 10/13/2024 3:30 PM EST Office Visit [facility] [address] [place] [address] Deborah Andrade CNP Morbid obesity (CMS/HCC) (Primary Dx); Eczema, unspecified type; Cystic acne; Generalized anxiety disorder with panic attacks from Last 3 Months Immunizations Name Administration [...] Description 02/11/2025 2:15 PM EDT Office Visit [facility] [address] [place] [address] Raymond Olegav, INSURANCE PROCESSOR [address] [place] [address] Health Maintenance Due Date Last Done Comments [...] Procedure Name Priority Date/Time Associated Diagnosis Comments APTT Routine 12/31/2024 11:42 AM EDT Easy bruising PROTHROMBIN TIME-INR Routine 12/31/2024 11:42 AM EDT Easy bruising CBC WITH AUTO DIFFERENTIAL Routine 12/31/2024 11:42 AM EDT Easy bruising CELIAC DISEASE COMPREHENSIVE PANEL Routine 11/19/2024 1:40 [...] Recently Relevant to Health Maintenance Results * (ABNORMAL) CBC auto differential (12/31/2024 11:42 AM EDT) Only the most recent of2 resultswithin the time period is included. White Blood Count 8.5 4.8 - 10.8 X10*3/uL [facility] Red Blood Count 5.38 4.20 - 5.50 X10*6/uL [facility] Hemoglobin 14.9 12.0 - 16.0 g/dl [facility] Hematocrit 44.1 37.0 - 47.0 % [facility] Mean Corpuscular Volume 82.0 80.0 - 98.0 fL [facility] Mean Corpuscular Hemoglobin 27.7 27.0 - 33.0 pg [facility] Mean Corpuscular HGB Conc 33.8 31.0 - 35.0 g/dl [facility] Red Cell Distribution Width 13.2 11.0 - 16.0 % [facility] Platelet Count 287 160 - 400 X10*3/uL [facility] Mean Platelet Volume 10.1 9.4 - 12.3 fL [facility] Neutrophils Percent Auto 73.1(H) 45 - 73 % [facility] Imm Gran Pct Auto 0.4 0.0 - 0.4 % [facility] Lymphocytes Percent Auto 18.7(L) 20 - 40 % [facility] Monocytes Percent Auto 5.5 2 - 11 % [facility] Eosinophils Percent Auto 2.1 0 - 4 % [facility] Basophils Percent Auto 0.2 0 - 2 % [facility] NRBC Pct Auto 0.0 0.0 - 0.2 /100WBC [facility] Neutrophils Absolute Auto 6.2 2.0 - 8.3 x10*3/uL [facility] Imm Gran Abs Auto 0.03 0.00 - 0.03 X10*3/uL [facility] Lymphocytes Absolute Auto 1.6 1.2 - 4.9 X10*3/uL [facility] Monocytes Absolute Auto 0.5 0.1 - 1.2 X10*3/uL [facility] Eosinophils Absolute Auto 0.2 0.0 - 0.4 X10*3/uL [facility] Basophils Absolute Auto 0.0 0.0 - 0.2 X10*3/uL [facility] NRBC Abs Auto 0.000 0.0 - 0.012 X10*3/uL [facility] Blood Venous blood specimen / Unknown 12/31/2024 11:42 AM EDT 12/31/2024 1:14 PM EDT [facility] LAB BLOOD ORDERABLES Christy l Result [facility] [address] [place] [address] [phone] * Partial Thromboplastin Time, Activated (APTT) (12/31/2024 11:42 AM EDT) Partial Thromboplastin Time 31.9 26.0 - 36.8 SEC [facility] Comment:For information rega rding the monitoring of direct thrombininhibitors, please refer to Pharmacy. Blood Venous blood specimen / Unknown 12/31/2024 11:42 AM EDT 12/31/2024 1:14 PM EDT [facility] LAB BLOOD ORDERABLES Christy l Result Performing Organization Address [facility] Co de Phone Number [facility] [address] [place] [phone] * (ABNORMAL) Prothrombin Time-INR (12/31/2024 11:42 AM EDT) Prothrombin Time 12.8(H) 10.9 - 12.4 SEC [facility] INTERNATIONAL NORM RATIO 1.1 0.9 - 1.1 [facility] Comment:INTERNATIONAL NORMAL IZED RATIO (INR) REFERENCE RANGES Reference RangeFor patients not on anticoagulant therapy: 0.9 - 1.1INR ranges for oral anticoagulanttherapy:For prevention and treatment of venous thrombosis and pulmonary embolism: 2.0 - 3.0For acute myocardial infarction with aspirin therapy: 2.0 - 3.0For acute myocardial infarction without aspirin therapy: 3.0 - 4.0For patients with mechanical prosthetic heart valves: 2.5 - 3.5 Blood Venous blood specimen / Unknown 12/31/2024 11:42 AM EDT 12/31/2024 1:14 PM EDT [facility] LAB BLOOD ORDERABLES Christy l Result Performing Organization Address City/[facility]/ZIP Co de Phone Number [facility] [address] [place] [phone] * Iron And Total Iron Binding Capacity (11/19/2024 1:40 PM EST) Iron 87 30 - 160 mcg/dL [facility] Total Iron Binding Capacity 306 228 - 428 mcg/dL [facility] Percent Iron Saturation 28 15 - 50 % [facility] Unsaturated Iron Binding 219 ug/dL [facility] Blood Venous blood specimen / Unknown 11/19/2024 1:40 PM EST 11/19/2024 4:11 PM EST us Yanci Olivier MD LAB BLOOD ORDERAB LES Final Result Performing Organization Address [facility] Co de Phone Number [facility] [address] [place] [address] [phone] * Celiac Disease Comprehensive Panel (11/19/2024 1:40 PM EST) Pathologist [facility] Immunoglobulin A 199 47 - 310 mg/dL [facility] Comment:THIS TEST WAS PERFOR MED AT:[employer] [place] [phone] MARIA MD Transglutaminase IgA <1.0 U/mL [facility] Comment:Value Interpretation ----- <15.0 Antibody not detected> or = 15.0 Antibody detected Interpretation SEE NOTE [facility] Comment:No serological evide nce of celiac disease.tTG IgA may normalize in individuals with celiac diseasewho maintain a gluten-free diet. Consider HLA DQ2 andDQ8 testing to rule out celiac disease. Celiac diseaseis extremely rare in the absence of DQ2 or DQ8. Blood Venous blood specimen / Unknown 11/19/2024 1:40 PM EST 11/19/2024 4:11 PM EST us Deborah Andrade INSURANCE PROCESSOR LAB BLOOD ORDERABLES Christy l Result Performing Organization Address [facility]/ZIP Co de Phone Number [facility] [address] [place] [address] [phone] * CBC (11/19/2024 1:40 PM EST) [facility] White Blood Count 9.1 4.8 - 10.8 X10*3/uL [facility] Red Blood Count 5.33 4.20 - 5.50 X10*6/uL [facility] Hemoglobin 14.6 12.0 - 16.0 g/dl [facility] Hematocrit 43.9 37.0 - 47.0 % [facility] Mean Corpuscular Volume 82.4 80.0 - 98.0 fL [facility] Mean Corpuscular Hemoglobin 27.4 27.0 - 33.0 pg [facility] Mean Corpuscular HGB Conc 33.3 31.0 - 35.0 g/dl [facility] Red Cell Distribution Width 12.7 11.0 - 16.0 % [facility] Platelet Count 336 160 - 400 X10*3/uL [facility] Mean Platelet Volume 9.8 9.4 - 12.3 fL [facility] NRBC Pct Auto 0.0 0.0 - 0.2 /100WBC [facility] NRBC Abs Auto 0.000 0.0 - 0.012 X10*3/uL [facility] Blood Venous blood specimen / Unknown 11/19/2024 1:40 PM EST 11/19/2024 4:11 PM EST us Yanci Olivier MD LAB BLOOD ORDERAB LES Final Result Performing Organization Address City/[facility]/ZIP Co de Phone Number [facility] [address] [place] [phone] * (ABNORMAL) Ferritin (11/19/2024 1:40 PM EST) Pathologist [facility] Ferritin 155(H) 10 - 122 ng/mL [facility] Blood Venous blood specimen / Unknown 11/19/2024 1:40 PM EST 11/19/2024 4:11 PM EST Yanci Olivier MD LAB BLOOD ORDERAB LES Final Result Performing Organization Address City/[facility]/ZIP Co de Phone Number [facility] [address] [place] [phone] * Vitamin B12 (11/19/2024 1:40 PM EST) Vitamin B12 365 200 - 900 pg/mL [facility] Comment:NORMAL 200-900 PG/ML INDETERMINATE 160-199 PG/ML DEFICIENT < 160 PG/ML Blood Venous blood specimen / Unknown 11/19/2024 1:40 PM EST 11/19/2024 4:11 PM EST us Yanci Olivier MD LAB BLOOD ORDERAB LES Final Result [facility] [address], [place] [phone] * (ABNORMAL) Comprehensive Metabolic Panel (11/19/2024 1:40 PM EST) Sodium 139 135 - 145 mmol/L [facility] Potassium 4.1 3.3 - 5.1 mmol/L [facility] Chloride 107 96 - 108 mmol/L [facility] Carbon Dioxide 25 22 - 29 mmol/L [facility] Anion Gap 11(L) 12 - 20 [facility] Urea Nitrogen (BUN) 11 9 - 16 mg/dL [facility] Creatinine, Serum 0.68 0.5 - 1.4 mg/dL [facility] Estimated Glomerular Filt Rate >60 [facility] Comment:Chronic Kidney Disea se: Estimated GFR < 60 mL/min/1.23p5Brhusd Kidney Disease: Estimated GFR < 15 mL/min/1.73m2 Glucose 81 60 - 115 mg/dL [facility] Calcium 9.5 8.4 - 10.2 mg/dL [facility] Bilirubin, Total 0.9 0.0 - 1.0 mg/dL [facility] Aspartate Amino Transferase 27 5 - 31 U/L [facility] Alanine Aminotransferase 32(H) 0 - 31 U/L [facility] Total Protein 8.1(H) 6.5 - 8.0 g/dL [facility] Albumin Level 4.3 3.5 - 5.0 g/dL [facility] Alkaline Phosphatase 63 39 - 117 U/L [facility] Blood Venous blood specimen / Unknown 11/19/2024 1:40 PM EST 11/19/2024 4:11 PM EST Yanci Olivier MD LAB BLOOD ORDERAB LES Final Result Performing Organization Address [facility] Co de Phone Number [facility] [address] [place] [phone] * SARS-CoV-2 RNA, Influenza A/B, and RSV RNA, Ql NAAT (11/08/2024 11:11 AM EST) Influenza A PCR NEGATIVE Negative [facility] Influenza B PCR NEGATIVE Negative [facility] Resp Syncy Virus RNA Qual PCR NEGATIVE Negative [facility] SARS COV2 PCR NEGATIVE Negative [facility] Comment:All test results mus t [...] use by authorized laboratories.Testing performed on the [employer] GeneXpert utilizingreal-time RT-PCR.All SARS CoV2 and positive influenza A/B results arereported to [facility]. 11/08/2024 11:1 1 AM EST 11/08/2024 11:32 AM EST us Generic External Data Provider LAB MICROBIOLOGY - GENERAL ORDERABLES Final Result Performing Organization Address City/[facility]/ZIP Co de Phone Number [facility] [address] [place] [phone] * hCG, Total, Quantitative (11/08/2024 11:11 AM EST) HCG Quantitative <2 mIU/mL [facility] Comment:Weeks post LMP Appro ximate hCG(Last Menstrual Period) Range (mIU/ml)3 - 4 weeks 9 - 1304 - 5 weeks 75 - 2,6005 - 6 weeks 850 - 20,8006 - 7 weeks 4000 - 100,2007 - 12 weeks 11,500 - 289,68305 - 16 weeks 18,300 - 137,75282 - 29 weeks (2nd trimester) 1,400 - 53,40673 - 41 weeks (3rd trimester) 940 - [...] ORDERAB LES Final Result Performing Organization Address [facility] de Phone Number [facility] [address] [place] [phone] * Magnesium (11/08/2024 11:11 AM EST) Magnesium 2.1 1.6 - 2.6 mg/dL [facility] 11/08/2024 11:1 1 AM EST 11/08/2024 11:32 AM EST Generic External Data Provider LAB BLOOD ORDERAB LES Final Result Performing Organization Address [facility] Co de Phone Number [facility] [address] [place] [phone] * Lipase (11/08/2024 11:11 AM EST) Lipase 20 8 - 78 U/L [facility] 11/08/2024 11:1 1 AM EST 11/08/2024 11:32 AM EST Generic External Data Provider LAB BLOOD ORDERAB LES Final Result Performing Organization Address [facility] Co de Phone Number [facility] [address] [place] [phone] * (ABNORMAL) Hepatic Function Panel (11/08/2024 11:11 AM EST) Pathologist [facility] Bilirubin, Total 1.2(H) 0.0 - 1.0 mg/dL [facility] Bilirubin, Direct 0.5 0.0 - 0.5 mg/dL [facility] Aspartate Amino Transferase 53(H) 5 - 31 U/L [facility] Comment:Slight Hemolysis.Int erpret result with caution. Alanine Aminotransferase 56(H) 0 - 31 U/L [facility] Total Protein 8.1(H) 6.5 - 8.0 g/dL [facility] Albumin Level 4.0 3.5 - 5.0 g/dL [facility] Alkaline Phosphatase 90 39 - 117 U/L [facility] 11/08/2024 11:1 1 AM EST 11/08/2024 11:32 AM EST us Generic External Data Provider LAB BLOOD ORDERAB LES Final Result [facility] [address] [place] [phone] * (ABNORMAL) Basic Metabolic Panel (11/08/2024 11:11 AM EST) [facility] Sodium 135 135 - 145 mmol/L [facility] Potassium 3.6 3.3 - 5.1 mmol/L [facility] Comment:Slight Hemolysis.Int erpret result with caution. Chloride 105 96 - 108 mmol/L [facility] Carbon Dioxide 18(L) 22 - 29 mmol/L [facility] Anion Gap 16 12 - 20 [facility] Urea Nitrogen (BUN) 5(L) 9 - 16 mg/dL [facility] Creatinine, Serum 0.68 0.5 - 1.4 mg/dL [facility] Creatinine Clr Calc Pharmacy 145.5 [facility] Comment:Provided height and weight: 160.02 cm,102.1 kg.eGFR (calculated from the MDRD study equation) and eCrCl(calculated from the Cockcroft-Gault equation) are based ondifferent parameters and may not yield comparable results.If eCrCl result is absurd, please check patient'sheight/weight. Estimated Glomerular Filt Rate >60 [facility] Comment:Chronic Kidney Disea se: Estimated GFR < 60 mL/min/1.05m8Byreco Kidney Disease: Estimated GFR < 15 mL/min/1.73m2 Glucose 100 60 - 115 mg/dL [facility] Calcium 9.2 8.4 - 10.2 mg/dL [facility] 11/08/2024 11:1 1 AM EST 11/08/2024 11:32 AM EST us Generic External Data Provider LAB BLOOD ORDERAB LES Final Result Performing Organization Address City/State/[facility] Co de Phone Number [facility] [address] [place] [phone] * Pap Smear (01/21/2024 2:33 PM EDT) 01/21/2024 2:33 PM EDT 01/22/2024 9:00 AM EDT Narrative [facility] - 02/07/2024 5:46 PM EDT ----- ------- Name: Summer Sandoval ? Age/Sex: 23/F ? : 2000 Unit#: [id number] ?? Attend Dr: Maura Ramirez CNM ?Re01/21/24 ?Status: DEP REF ? Location: HO.LNP ?Disch: ? ----- ------- SPEC : [id number] ? RECD: 01/22/24 ? STATUS: ??SOUT ? REQ NUM: [id number] ? ANGELIKA: 01/21/24-1432 ? SUBM DR: Maura Ramirez CNM ? ENTERED: ??01/22/24 ?SP TYPE: Pap Smr ?OTHR DR: Lisa Bennett MD ? ORDERED: ??Pap Smear ? Interpretation ?? Satisfactory for evaluation. ?? Negative for intraepithelial lesion or malignancy. ?Clinical Information LMP: 01/01/24 Previous PAP test: 2020, WNL ? Material Received ?? ThinPrep-Cervical Copies To: ?? Lisa Bennett MD ?? [address] ?? [place] [address] ? Maura Ramirez CNM ?? [address] ?? [place] [address] ?? [phone] ----- ------- Signed (signature on file) Alison Diggs 02/07/241745 ? ----- ------- ? END OF REPORT ? us Generic External Data Provider LAB CYTOLOGY POLO KINNEY Final Result [facility] [address] [place] [phone] * Hepatitis C Antibody with Reflex to HCV, RNA, Quantitative, Real-Time PCR (11/11/2023 2:54 PM EST) Hepatitis C Antibody Nonreactive Nonreactive [facility] Comment:Antibodies to HCV no t detected; does not exclude early acuteHCV infection. Blood Venous blood specimen / Unknown 11/11/2023 2:54 PM EST 11/11/2023 4:23 PM EST us Yanci Olivier MD LAB BLOOD ORDERAB LES Final Result Performing Organization Address [facility]/ZIP Co de Phone Number [facility] [address] [place] [phone] * HIV-1/2 Antigen and Antibodies, Fourth Generation, with Reflexes (11/11/2023 2:54 PM EST) HIV AB/AG Nonreactive Nonreactive [facility] Comment:HIV-1 p24 Ag and/or HIV-1/HIV-2 Ab not detected.A test result that is nonreactive does not exclude thepossibility of exposure to or infection with HIV-1 and/orHIV-2. Nonreactive results in this assay for individualswith prior exposure to HIV-1 and/or HIV-2 may be due toantigen and antibody levels that are below the limit ofdetection of this assay.The NaurexniPrepmatic HIV Ag/Ab Combo assay result andsupplemental assay results should be interpreted inconjunction with the patient's clinical presentation,history and other laboratory results. If the results areinconsistent with clinical evidence, additional testing issuggested to confirm the result. Blood Venous blood specimen / Unknown 11/11/2023 2:54 PM EST 11/11/2023 4:23 PM EST us Yanci Olivier MD LAB BLOOD ORDERAB LES Final Result Performing Organization Address [facility]/ZIP Co de Phone Number [facility] [address] [place] [address] [phone] * (ABNORMAL) Lipid Panel, Standard (11/11/2023 2:54 PM EST) Triglycerides 96 <150 mg/dL [facility] Comment:Desirable Triglyceri de: less than 150 mg/dLBorderline High Triglyceride 150-199 mg/dLHigh Triglyceride: 200-499 mg/dLVery High Triglyceride: greater than or equal to 5OO mg/dL Cholesterol 106 <200 mg/dL [facility] Comment:Desirable Cholestero l: less than 200 mg/dLBorderline High Cholesterol: 200-239 mg/dLHigh Cholesterol: greater than 239 mg/dL LDL Cholesterol Calculated 55 <100 mg/dL [facility] Comment:Desirable LDL: less than 100 mg/dLNear Optimal/Above Optimal LDL: 110- 129 mg/dLBorderline High LDL: 130-159 mg/dLHigh LDL: 160-189 mg/dLVery High LDL: greater than or equal to 190 mg/dL HDL Cholesterol 32(L) >40 mg/dL [facility] Comment:Desirable HDL: great er than 40 mg/dL Note: This HDL assay may give artificially low results in patients with liver disease. Blood Venous blood specimen / Unknown 11/11/2023 2:54 PM EST 11/11/2023 4:23 PM EST Yanci Olivier MD LAB BLOOD ORDERAB LES Final Result [facility] [address] [place] [phone] from Last 3 Months or Most Recently Relevant to Health Maintenance [place] [address] [place] [address] C3 Care Teams Cat Scan Technologist Relationship Specialty Start Date End Date Deborah Andrade CNP [address] [place] [phone] PCP - General Family Medicine 09/01/24
--- OUTSIDE RECORDS SUMMARY | 2025-01-05 09:43 | XMS_ITS | Clinical Summary ---
Author Organization [facility] Address [address] [place] [address] Care Team Providers Care Clinical Quality Assurance Specialist Name Role Phone Unavailable Primary Care Provider Unavailabl e Surgical History Surgery Date Site/Laterality Comments OTHER SURGICAL HISTORY 2012 PROCEDURE: MT TONSILLECTOMY & ADENOIDECTOMY AGE 12/> Medical History Medical History Date Comments Morbid obesity with BMI of 4 0.0-44.9, adult (CMS/HCC V24, CMS/HCC V28) DX:Morbid obesity wit h BMI of 40.0-44.9, adult ([facility]) Family History Medical History Relation Name Comments [...]
--- OUTSIDE RECORDS SUMMARY | 2025-01-05 09:43 | XMS_ITS | Encounter Summary ---
Author Organization [employer] Address [address] [place] [address] 7 [place] [address] Care Team Providers Care Behavioral Health Professional Name Role Phone Christy Thornton DONTE Primary Care Provider [phone] Yanci Collins MD Primary Care Pro vider Deborah Andrade CNP Primary Care Provider [phone] Encounter Details Date Type Department Care Team (Late st Contact Info) Description 06/12/2023 Orders Only [facility] [address] [place] [phone] Provider, MD Kiya Social History Tobacco Use [...] Description 02/11/2025 2:15 PM EDT Office Visit [facility] [address] [place] [address] Deborah Andrade, MANAGER [employer] [address] [place] [address] documented as of this encounter Procedures Procedure Name Priority Date/Time Associated Diagnosis Comments PAP/HPV Routine 03/07/2021 documented in this encounter Results * Pap Smear (03/07/2021) us Historical Provider HEALTH MAINTENANCE Final Result documented in this encounter Visit Diagnoses Not on filedocumented in this encounter Care Teams Behavioral Health Professional Relationship Specialty Start Date End Date Christy Thornton FNP [address] [place] [address] PCP - General Family Medicine 06/05/23 11/13/23 Yanci Collins MD [address] [place] [address] PCP - General Internal Medicine 11/14/23 08/31/24 Deborah Andrade CNP [address] [place] [address] PCP - General Family Medicine 09/01/24 documented as of this encounter
--- OUTSIDE RECORDS SUMMARY | 2025-01-05 09:43 | XMS_ITS | Encounter Summary ---
Author Organization [employer] Address [address] [facility] 7t [place] [address] Care Team Providers Care Concrete Technician Name Role Phone Deborah Andrade CNP Primary Care Provider [phone] Reason for Visit * Reason Comments Follow-up Encounter Details Date Type Department Care Team (Late st Contact Info) Description 12/31/2024 11:15 AM EDT Office Visit [facility] [address] [place] [address] Deborah Andrade CNP [address] [place] [address] Obesity (BMI 30-39.9) (Primary Dx); Chronic migraine [...] 11:27 AM EDT documented in this encounter Progress Notes * Deborah Andrade CNP - 12/31/2024 11:15 AM EDT Subjective Patient ID: Summer Cerrato is a 24 y.o. female who presents for weight loss f/u. She denies any adverse side effects including bloating, abdominal pain, nausea, vomiting, diarrhea. She expresses concerns about recent plateau in her weight however she reports that she has been dealing with anxiety lately related to some life changes. She says she plans on exercising more within these next couple of months to help with the weight loss and anxiety. She reports her diet has still been clean with large amounts of fruits and vegetables and protein. At our AMY: She was concerned about new onset bruising that has been occurring whenever she takes her ibuprofenfor migraines. We ordered bloodwork at this time to r/o bleeding disorders this was not completed yet, reminded pt today/ Interim Hx: Had two periods this month, has IUD in place. Reports her periods are always irregular since she got her IUD. She also reports she had a migraine preceded by photosensitivity last Friday. She denies diplopia, worst ASH of life, ASH waking her out of sleep. She reports that it took awhile to go away but it finally did later that day with the help of exedrine. Confirms hx of chronic migraines. Wt Readings from Last 4 Encounters: 12/31/24 208 lb 12.8 oz (94.7 kg) 12/17/24 209 lb (94.8 kg) 11/19/24 222 lb 3.2 oz (101 kg) 10/13/24 237 lb 6.4 oz (108 kg) Review of Systems Constitutional: Negative for appetite change, chills, diaphoresis, fatigue, fever and unexpected weight change. Eyes: Negative for visual disturbance. Respiratory: Negative for apnea, cough, chest tightness, shortness of breath and wheezing. Cardiovascular: Negative for chest pain and palpitations. Gastrointestinal: Negative for abdominal distention, abdominal pain, blood in stool, constipation, diarrhea, nausea and vomiting. Skin: Negative for pallor. Neurological: Negative for dizziness, syncope, speech difficulty, weakness, light-headedness, numbness and headaches. Objective Vitals: 12/31/24 1112 BP: 91/57 Pulse: 97 Resp: 18 Temp: 97.5 ??F (36.4 ??C) SpO2: 97% Physical Exam Constitutional: Appearance: Normal appearance. She is normal weight. HENT: Head: Normocephalic and atraumatic. Eyes: General: Right eye: No discharge. Left eye: No discharge. Extraocular Movements: Extraocular movements intact. Conjunctiva/sclera: Conjunctivae normal. Pupils: Pupils are equal, round, and reactive to light. Cardiovascular: Rate and Rhythm: Normal rate and regular rhythm. Pulses: Normal pulses. Heart sounds: Normal heart sounds. No murmur heard. No friction rub. No gallop. Pulmonary: Effort: Pulmonary effort is normal. No respiratory distress. Breath sounds: Normal breath sounds. No wheezing or rales. Skin: General: Skin is warm and dry. Coloration: Skin is not jaundiced. Findings: No bruising. Neurological: General: No focal deficit present. Mental Status: She is alert and oriented to person, place, and time. Cranial Nerves: No cranial nerve deficit. Sensory: No sensory deficit. Motor: No weakness. Coordination: Coordination normal. Gait: Gait normal. Deep Tendon Reflexes: Reflexes normal. Psychiatric: Mood and Affect: Mood normal. Behavior: Behavior normal. Thought Content: Thought content normal. Judgment: Judgment normal. Assessment/Plan Problem List Items Addressed This Visit None Visit Diagnoses Obesity (BMI 30-39.9) - Primary Relevant Medications Tirzepatide 12.5 MG/0.5ML solution auto-injector Pt weight loss was 1 lb this past month, she denies side effects from medication We will increase zepbound dose today Pt also plans to try and increase workout regimen from 1-2 days per week to 3-4 days per week. She will continue to eat a balanced diet Chronic migraine with aura without status migrainosus, not intractable No red flag ASH signs Neuro exam showed no acute abnormalities, no indication for head imaging today Pt declines intervention today d/t no present sx Advised pt if ASH increase in severity or frequency we will initiate alternative abortive therapy aside from exedrine and possible start prophylactic tx. Easy bruising Ecchymoses from last visit have subsided Reminded pt to obtain ordered bloodwork to r/o anemia or bleeding disorder Low BP reading Pt asymptomatic today Pt confirms a hx of low blood pressure, she reports this is a normal reading for her ED precautions advised for symptomatic low bp Plan to f/u in 1 month for routine physical C PER DIEM PHYSICAL THERAPIST ASSISTANT Attestation PER DIEM PHYSICAL THERAPIST ASSISTANT Resident Attestation: Patient was seen and evaluated by Deborah Andrade CNP, in collaboration with DONTE Jerez who has reviewed my assessment and plan. I, DONTE Jerez, have reviewed the resident's note and agree with the assessment & plan of care as documented above. documented in this encounter Plan of Treatment Upcoming Encounters Date Type Department Care Team (Late st Contact Info) Description 02/11/2025 2:15 PM EDT Office Visit [facility] [address] [place] [address] Deborah Andrade CNP [address] [place] [address] documented as of this encounter Visit Diagnoses [...] documented as of this encounter Care Teams Concrete Technician Relationship Specialty Start Date End Date Deborah Andrade CNP [address] [place] [address] PCP - General Family Medicine 09/01/24 documented as of this encounter
== END 2025-01-05 09:01 | disposition home or self-care (01) ==
LOC: HO.US 09:00
DX: R14.0 Abdominal distension (gaseous) (principal)
CPT/HCPCS: 76700

== ENCOUNTER → 2025-01-05 09:02 | Outpatient (BNV) | payer MEDICAID, SELFPAY | PROVIDERS: Visit Provider Radiology Vascular & Interventional Radiology | DX: R14.0 Abdominal distension (gaseous) (principal) | CPT/HCPCS: 76700 ==

== ENCOUNTER 2025-01-25 13:48 | Outpatient (AMB) | payer MEDICAID, SELFPAY ==
--- NOTE | 2025-01-25 13:49 | MHC.OFFVIS ---
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 Regular monthly menses with Kyleena. Currently is sexually active. She denies vaginal itching or irritation. STI screening offered; she accepts. She tries to eat healthy and stays active with exercise, actively losing weight with diet, exercise and medication. Denies family history of colon cancer. Family history of breast, ovarian cancer great maternal aunt. Last pap smear 2023, negative. [facility] Medical History IUD (intrauterine device) in place Encounter for well woman exam with routine gynecological exam Obesity Anxiety attack Surgical History History of tonsillectomy and adenoidectomy Family History Mother Cervical cancer Maternal Uncle Diabetes mellitus CVD (cardiovascular disease) Maternal Aunt Ovarian cancer Son Autism Family/Other History of breast cancer Social History Alcohol intake: never Patient Tobacco Use Status: Never used Tobacco Sexual orientation: Straight/Heterosexual Gender identity: Female Female Reproductive History Menstrual Age of Menarche: 8 control method: progestin IUCD (Kyleena 06/2023) Total pregnancies: 2 Full term: 2 Number of Living Children: 2 Date of last pap smear: 01/21/24 (neg) Review of Systems Const All systems reviewed & are unremarkable except as noted in HPI and below Reports as per HPI Eyes Reports no additional complaints ENT Reports no additional complaints Card Reports no additional complaints Resp Reports no additional complaints GI Reports as per HPI and Reports no additional complaints Reports as per HPI Musc Reports no additional complaints Skin/Breast Reports as per HPI Neuro Reports no additional complaints Psych Reports no additional complaints Endo Reports no additional complaints Blayne/Lymph Reports no additional complaints Aller/Immun Reports no additional complaints Physical Exam Vital Signs: Last Vital Signs BP 98/60 01/25/25 13:50 BMI result Body Mass Index 35.4 Const General: cooperative, healthy appearing, no acute distress, well developed and alert Orientation/consciousness: patient oriented x3 HEENT Head: Yes normal to inspection Eyes General: appearance normal, both eyes and all related structures Neck Neck: Yes normal visual inspection Thyroid: Thyroid normal Chest Chest palpation & inspection: normal inspection of the chest and other (no puckering, dimpling, peau de orange, retraction, discharge, masses) Breast/axilla inspection: normal inspection of the breasts Breast/axilla palpation: normal palpation of the breasts Resp Effort & Inspection: normal respiratory effort GI Inspection: Yes normal to inspection Palpation (GI): Soft to palpation Rectal Exam - Female: deferred General: Yes bladder normal to palpation External Female Exam: normal external appearance and normal appearance of the urethra Speculum Exam - Vagina: normal appearance of the vagina, normal palpation and normal vaginal discharge Speculum Exam - Cervix: normal appearance of the cervix, normal palpation and Other cervical findings present (IUD strings at the os) Bimanual exam- vagina & uterus: normal bimanual exam, normal palpation, uterine size normal, bladder normal to palpation, normal palpation and non-tender Bimanual Exam- Adnexa, other: no masses Skin General skin exam: no rashes or lesions noted Rashes: no rashes Neuro General: patient oriented x3 Cognition (Neuro): normal cognition Extrem General: Yes normal to inspection Psych Attitude: cooperative Thought process: Normal thought process present Results AMB Test Urine AMB Test Urine Negative Last Edit by YOSEF Cummings on 01/25/25 14:05 AMB Urinalysis, Automated UA Leukoctes 0.5 Bogdan/uL Last Edit by YOSEF Cummings on 01/25/25 14:05 UA Nitrite Negative Last Edit by YOSEF Cummings on 01/25/25 14:05 UA Urobilinogen 0.5 mg/dL Last Edit by YOSEF Cummings on 01/25/25 14:05 UA Protein 1 mg/dL Last Edit by YOSEF Cummings on 01/25/25 14:05 UA pH 6.0 Last Edit by YOSEF Cummings on 01/25/25 14:05 UA Blood 0 Jose David/uL Last Edit by KalaniYOSEF Maurer on 01/25/25 14:05 UA Specific [place] 1.025 Last Edit by KalaniYOSEF Maurer on 01/25/25 14:05 UA Ketone Positive Last Edit by YOSEF Cummings on 01/25/25 14:05 trace Kalani Tucker 01/25/25 14:05 UA Bilirubin 1 mg/dL Last Edit by YOSEF Cummings on 01/25/25 14:05 UA Glucose 0 mg/dL Last Edit by YOSEF Cummings on 01/25/25 14:05 Results Reviewed Results Reviewed: Laboratory Last Values Urine pH (Auto) 6.0 01/25/25 14:03 Specific [place] (Auto) 1.025 01/25/25 14:03 Urine Protein (Auto) 1 mg/dL 01/25/25 14:03 Glucose (UA)(Auto) 0 mg/dL 01/25/25 14:03 Urine Ketones (Auto) Positive 01/25/25 14:03 Urine Blood (Auto) 0 Jose David/uL 01/25/25 14:03 Urine Nitrite (Auto) Negative 01/25/25 14:03 Urine Bilirubin (Auto) 1 mg/dL 01/25/25 14:03 Urine Urobilinogen (Auto) 0.5 mg/dL 01/25/25 14:03 Leukocyte Esterase (Auto) 0.5 Bogdan/uL 01/25/25 14:03 Tst Clinic Negative 01/25/25 14:03 Assessment & Plan Assessment & Plan (1) Encounter for well woman exam with routine gynecological exam: Code(s): Z01.419 - Encounter for gynecological examination (general) (routine) without abnormal findings Category: Medical Plan: Discussed: Current recommendations for pap smears per ASCCP guidelines. Breast awareness and periodic breast exams. Maintain a healthy lifestyle including a well balanced diet and routine exercise. If late for menses to do a home test. If positive report to the office for follow up care. Patient verbalizes understanding and agrees to the plan of care. She was given opportunity to ask questions and all questions were answered to the best of my ability. 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 This note is constructed using voice recognition software. While every effort has been made to ensure accuracy, orthopaedic general errors may have been included. (2) Screening for STDs (sexually transmitted diseases): Code(s): Z11.3 - Encounter for screening for infections with a predominantly sexual mode of transmission Plan STD blood work in culture screening completed today await for results for plan of care. The patient expressed understanding and agreement with the plan of care. All of her questions and concerns were addressed to the best of my ability. Orders: Orders AMB HCG Urine Test Today Z32.02 - Encounter for test, result negative AMB Urinalysis Automated Today R30.0 - Dysuria Urine Culture Today R30.0 - Dysuria Syphilis Screen Today Z20.2 - Contact with and (suspected) exposure to infections with a predominantly sexual mode of transmission HIV Ab/Ag Today Z20.2 - Contact with and (suspected) exposure to infections with a predominantly sexual mode of transmission Hepatitis C Antibody Reflex Today Z20.2 - Contact with and (suspected) exposure to infections with a predominantly sexual mode of transmission Hepatitis B Core Antibody Today Z20.2 - Contact with and (suspected) exposure to infections with a predominantly sexual mode of transmission Coding Level of Care Code Est Pt Prev Care 18-39y([id number]) Diagnoses Encounter for well woman exam with routine gynecological exam Z01.419 Screening for STDs (sexually transmitted diseases) Z11.3
[2025-01-25 13:50] VITALS: BP 98/60; BMI 35.4
--- OUTSIDE RECORDS SUMMARY | 2025-01-25 14:57 | XMS_ITS | Encounter Summary ---
Author Organization [employer] Address [address] [place] [address] 7t [place] [address] Care Team Providers Care Life Management Teacher Name Role Phone Germán Reddy AGNCristobal Primary Care Provider Unavail Christy NanceP Primary Care Provider [phone] Yanci Collins MD Primary Care Pro vider Deborah Andrade CNP Primary Care Provider [phone] Encounter Details Date Type Department Care Team (Latest Contact Info) Description 12/08/2020 Abstract [facility] CONVERSIONS Dental, Provider, DDS Social History [...] Encounters Date Type Department Care Team ( st Contact Info) Description 02/11/2025 2:15 PM EDT Office Visit [facility] MEDICINE [address] [place] [address] Deborah Andrade CNP [address] [place] [address] 04/01/2025 2:30 PM EDT Office Visit [facility] [address] [place] [address] Kiley Mejia MD [address] [place], [place] [phone] documented as of this encounter Visit Diagnoses Not on filedocumented in this encounter Care Teams Life Management Teacher Relationship Specialty Start Date End Date Germán Reddy AGNP PCP - General Family Medicine 06/26/22 06/04/23 Christy Thornton FNP [address] [place], [place] [phone] PCP - General Family Medicine 06/05/23 11/13/23 Yanci Collins MD [address] [place] [address] [phone] PCP - General Internal Medicine 11/14/23 08/31/24 Deborah Andrade CNP [address] [place] [address] [phone] PCP - General Family Medicine 09/01/24 documented as of this encounter
--- OUTSIDE RECORDS SUMMARY | 2025-01-25 14:57 | XMS_ITS | Encounter Summary ---
Author Organization [employer] Address [address] [place] [address] 7t [place] [address] Care Team Providers Care Sign Language Teacher Name Role Phone Christy Thornton Primary Care Provider [phone] Yanci Collins MD Primary Care Pro vider Deborah Andrade CNP Primary Care Provider [phone] Reason for Visit * Reason Onset Date Comments Appointment Request 10/20/2023 Encounter Details Date Type Department Care Team (Late st Contact Info) Description 10/20/2023 Telephone [facility] [address] [place] [address] Christy Thornton FNP [address] [place] [address] Appointment Request Social History Tobacco Use Types [...] Description 02/11/2025 2:15 PM EDT Office Visit [address] [address] Deborah Andrade CNP [address] [place] [address] 04/01/2025 2:30 PM EDT Office Visit [address] [address] Kiley Mejia MD [address] [place] [address] documented as of this encounter Visit Diagnoses Not on filedocumented in this encounter Care Teams Sign Language Teacher Relationship Specialty Start Date End Date Chirsty Thornton FNP [address] [place] [phone] PCP - General Family Medicine 06/05/23 11/13/23 Yanci Collins MD [address] [place] [address] PCP - General Internal Medicine 11/14/23 08/31/24 Deborah Andrade CNP [address] [place] [address] PCP - General Family Medicine 09/01/24 documented as of this encounter
--- OUTSIDE RECORDS SUMMARY | 2025-01-25 14:57 | XMS_ITS | Encounter Summary ---
Author Organization [employer] Address [address] [place] [address] 7t [place] [address] Care Team Providers Care Food Concession Manager Name Role Phone Christy Thornton Primary Care Provider [phone] Yanci Collins MD Primary Care Pro vider Deborah Andrade CNP Primary Care Provider [phone] Reason for Visit * Reason Onset Date Comments Nurse Triage 10/20/2023 Encounter Details Date Type Department Care Team (Late st Contact Info) Description 10/20/2023 Telephone [facility] [address] [place] [address] Christy Thornton FNP [address] [place] [address] Nurse Triage Social History Tobacco Use Types [...] Pt denies fever. Pt was seen in [facility] 07/29/24 with dx of subacute maxillary sinusitis and was prescribed augmentin for 7 days and flonase nasal spray. Pt did get better but,all of the same symtpoms have come back over the last 3 days. Pt continues with flonase nasal spraywithout effect, can't taste anything. Pt is advised to come to [facility] today to be seen by provider andPt [...] Description 02/11/2025 2:15 PM EDT Office Visit [facility] MED[facility]INE [address] [place] [address] Deborah Andrade CNP [address] [place] [address] 04/01/2025 2:30 PM EDT Office Visit [facility] [address] [place] [address] Kiley Mejia MD [address] [place] [phone] documented as of this encounter Visit Diagnoses Not on filedocumented in this encounter Care Teams Food Concession Manager Relationship Specialty Start Date End Date Christy Thornton FNP [address] [place] [address] PCP - General Family Medicine 06/05/23 11/13/23 Yanci Collins MD [address] [place] [address] PCP - General Internal Medicine 11/14/23 08/31/24 Deborah Andrade CNP [address] [place] [address] PCP - General Family Medicine 09/01/24 documented as of this encounter
--- OUTSIDE RECORDS SUMMARY | 2025-01-25 14:57 | XMS_ITS | Clinical Summary ---
Author Organization [facility] Address [address] [place] [address] Care Team Providers Care Sister Superior Name Role Phone Unavailable Primary Care Provider Unavailabl e Surgical History Surgery Date Site/Laterality Comments OTHER SURGICAL HISTORY 2012 PROCEDURE: VT TONSILLECTOMY & ADENOIDECTOMY AGE 12/> Medical History Medical History Date Comments Morbid obesity with BMI of 4 0.0-44.9, adult (CMS/HCC V24, CMS/HCC V28) DX:Morbid obesity wit h BMI of 40.0-44.9, adult ([facility]) Family History Medical History Relation Name Comments [...]
--- OUTSIDE RECORDS SUMMARY | 2025-01-25 14:57 | XMS_ITS | Encounter Summary ---
Author Organization [employer] Address [address] [place] [address] 7 [place] [address] Care Team Providers Care Molder Pipe Covering Name Role Phone Christy Thornton DONTE Primary Care Provider [phone] Yanci Collins MD Primary Care Pro vider Deborah Andrade CNP Primary Care Provider [phone] Encounter Details Date Type Department Care Team (Late st Contact Info) Description 06/12/2023 Orders Only [facility] [address] [place] [address] [phone] Provider, MD Kiya Social History Tobacco Use [...] Description 02/11/2025 2:15 PM EDT Office Visit [facility] [address] [place] [address] [phone] Deborah Andrade, KAREEM [address] [place], [place] [phone] 04/01/2025 2:30 PM EDT Office Visit [facility] [address] [place] [address] Kiley Mejia MD [address] [place], [place] [phone] documented as of this encounter Procedures Procedure Name Priority Date/Time Associated Diagnosis Comments HM PAP/HPV Routine 03/07/2021 documented in this encounter Results * Hm Pap Smear (03/07/2021) us Historical Provider HEALTH MAINTENANCE Final Result documented in this encounter Visit Diagnoses Not on filedocumented in this encounter Care Teams Molder Pipe Covering Relationship Specialty Start Date End Date Christy Thornton FNP [address] [place] [address] [phone] PCP - General Family Medicine 06/05/23 11/13/23 Yanci Collins MD [address] [place] [address] PCP - General Internal Medicine 11/14/23 08/31/24 Deborah Andrade CNP [address] [place] [address] [phone] PCP - General Family Medicine 09/01/24 documented as of this encounter
--- OUTSIDE RECORDS SUMMARY | 2025-01-25 14:57 | XMS_ITS | Clinical Summary ---
Author Organization [employer] Address [address] [facility] [address] [place] [address] Care Team Providers Care Showroom Manager Name Role Phone Deborah Andrade KAREEM Primary Care Provider [phone] Allergies Active Allergy Reactions Criticality Noted Date [...] to seek care at urgent care or [facility] if her symptoms do not improve by end of week. Sent zofran to pharmacy for her nausea Advised ample hydration and handwashing Eczema 10/13/2024 Assessment & Plan (10/13/2024 4:36 PM EST): Will send triamcinolone cream to apply BID to affected areas Also advised pt to try tub of cerave moisturizing cream to apply to affected areas as well Referral placed to [facility] derm clinic Cystic acne 10/13/2024 Assessment [...] intervention , Patient to reach out to [facility] team as needed, and Patient to [...] -if no better will need to se machine stuffer automatic -f w PCP in 4 weeks to [...] reduction of 20-30% of maintenance calories; sees glass cleaning machine tender. Recommended to decrease soda and sugary beverage consumption. Recommended at least 20 g per meal of protein to assist with satiety. Recommended at least 150 min/week of moderate intensity exercise. F/u in 6 weeks to evaluate SE and weight loss Assessment & Plan (11/11/2023 3:03 PM EST): Morbid obesity -Advised pt to improve diet and exercise,discussed healthy life style -discussed glass cleaning machine tender referral -referred today -may need to discuss about bariatric surgery if not able to lose weight Family hx-malignancy 11/11/2023 Assessment & Plan (11/11/2023 3:03 PM EST): Mother w ovarian ca and maternal aunt breast ca ---referred today to genetic specialist Health care maintenance 11/11/2023 Assessment & Plan (11/11/2023 3:04 PM EST): -contraception : IUD -pap smear : 01/2023 Neg per pt at [facility] ---states has apt w [employer] [facility] for 01/2024 -vaccines s/p hepAx2, hep Bx3,HPV [...] Plan (11/11/2023 3:05 PM EST): -F w TOOL SMITH last seen 08/2023 -Pelvic US 08/22/2023 1. [...] intervention , Patient to reach out to [facility] team as needed, and Patient to [...] Encounters Date Type Department Care Team Description 01/13/[address] [facility] [address] [place] [phone] Yanci Johnson MD No Show 01/13/2025 Telephone [facility] [place] [address] Deborah Andrade CNP Nurse Triage 12/31/2024 11:15 AM EDT Office Visit [facility] [place] [address] Deborah Andrade CNP Obesity (BMI 30-39.9) (Primary Dx); Chronic migraine with aura without status migrainosus, not intractable; Easy bruising; Low blood pressure reading 12/31/2024 Travel 12/22/2024 Telephone [facility] [place] [address] Deborah Andrade CNP 12/17/2024 11:15 AM EDT Office Visit [facility] [place] [address] Deborah Andrade CNP Morbid obesity (CMS/HCC) (Primary Dx); Easy bruising 12/17/2024 Travel 12/15/2024 Telephone [facility] [address] [place] [address] Deborah Andrade CNP chart prep 12/14/2024 Travel 12/10/2024 11:15 AM EDT Telemedicine [facility] [address] [place] [address] Sajan Lucas MD Morbid obesity (CMS/HCC) (Primary Dx) 12/10/2024 Travel 11/26/2024 Population Health Risk Score [facility] () [address] [phone] Provider, Population Health Generic 11/19/2024 1:00 PM EST Office Visit [facility] [place] [address] Deborah Andrade CNP Abdominal bloating (Primary Dx); Gastroesophageal reflux disease, unspecified whether esophagitis present 11/16/2024 Telephone [facility] [place] [address] Deborah Andrade CNP Chart prep 11/10/2024 11:15 AM EST Telemedicine [facility] [place] [address] Andrade, Alexxis, PCAT INSTRUCTOR Cystic acne (Primary Dx); Nausea; Morbid obesity (CMS/HCC); Influenza-like illness 11/10/2024 Travel 11/08/2024 Orders Only GENERIC EXTERNAL DATA DEPARTMENT Provider, Generic External Data from Last 3 Months Immunizations Name Administration [...] Office Visit [facility] [address] [place], [place] [phone] Deborah Andrade, PCAT INSTRUCTOR [address] [place], [place] [phone] 04/01/2025 2:30 PM EDT Office Visit [facility] [address] [place], [place] [phone] Kiley Mejia MD [address] [place] [address] Health Maintenance Due Date Last Done Comments Family Planning (PISQ) 02/11/2015 COVID-19 Vaccine ( season) 2024 11/10/2023, 04/04/2021, 03/07/2021 Influenza Vaccine (#1) 2024 , 11/18/2019, 07/02/2016, Additional history exists Alcohol/Substance Use Screening 10/13/2025 10/13/2024 Depression Screening 11/19/2025 11/19/2024, 11/20/19 25 SDOH Screening 11/19/2025 11/19/2024 Tobacco Screening 12/17/2025 [...] Procedure Name Priority Date/Time Associated Diagnosis Comments US ABDOMEN COMPLETE Routine 01/06/2025 5 :40 AM EDT Abdominal bloating APTT Routine 12/31/2024 11:42 AM EDT Easy [...] Recently Relevant to Health Maintenance Results * US Abdomen Complete (01/06/2025 5:40 AM EDT) Anatomical Region Laterality Modality Abdomen Ultrasound 01/06/2025 5:40 AM EDT Narrative 01/06/2025 5:41 AM EDT ? [facility] ?[address] ?[place] [address] ? Ultrasound Report ? Signed ? Patient: Jet Casey,Summer D ?M ?? R#: [id number] ? : 2000 ?Acct:[id number] ? Age/Sex: 24 / F ?ADM Date: 04/23/25 ? Loc: HO.US ? Attending Dr: Deborah Andrade LAG SCREWER ? Ordering Physician: Deborah Andrade ?? Date of Service: 01/05/25 ?? Procedure(s): US abdomen complete ?? Accession Number(s): [id number] ? cc: Deborah Andrade ? CLINICAL HISTORY: chronic abdominal bloating ? US abdomen complete ? Comparison: None ? Findings: ?? The visualized pancreas is normal. ?? The aorta and inferior vena cava are normal caliber. ? The liver is normal in size and echotexture. ?? There is no intrahepatic bile duct dilatation. ?? The common duct is 3 mm in diameter. ?? The gallbladder appears decompressed about multiple stones, limit ?? interpretation. There is no sonographic Sinha sign. Mild focal wall ?? thickening suggested. ?? The main portal vein is antegrade. ? The right kidney is 10.6 cm in length. ?? The left kidney is 11.0 cm in length. ?? The spleen is mildly enlarged at 12.9 cm. ?? No ascites. ? IMPRESSION: ?? The gallbladder appears decompressed about multiple stones, limiting ?? interpretation. No sonographic Sinha's. Mild wall thickening suggested. ? This document has been electronically signed by: Xu Lancaster MD on ?? 01/06/2025 05:40:47 ? Dictated By: ?Xu Lancaster MD ? Signed By: ?<Electronically signed by Xu Lancaster MD in OV> ? 01/06/25 0541 ? DD/ 0540 ? TD/TT: 01/06/25 0540 ? Protective Officer: ? Procedure Note Nupur, Image - 01/06/[address] [address] Ultrasound Report Signed Patient: Summer Sandoval DM R#: [id number] : 2000Acct:[id number] Age/Sex: 24 FADM Date: 01/05/25 Loc: HO.US Attending Dr: Deborah Andrade LAG SCREWER Ordering Physician: Deborah Andrade Date of Service: 01/05/25 Procedure(s): US abdomen complete Accession Number(s): [id number] cc: Deborah Andrade CLINICAL HISTORY: chronic abdominal bloating US abdomen complete Comparison: None Findings: The visualized pancreas is normal. The aorta and inferior vena cava are normal caliber. The liver is normal in size and echotexture. There is no intrahepatic bile duct dilatation. The common duct is 3 mm in diameter. The gallbladder appears decompressed about multiple stones, limit interpretation. There is no sonographic Sinha sign. Mild focal wall thickening suggested. The main portal vein is antegrade. The right kidney is 10.6 cm in length. The left kidney is 11.0 cm in length. The spleen is mildly enlarged at 12.9 cm. No ascites. IMPRESSION: The gallbladder appears decompressed about multiple stones, limiting interpretation. No sonographic Sinha's. Mild wall thickening suggested. This document has been electronically signed by: Xu Lancaster MD on 01/06/2025 05:40:47 Dictated By: Xu Lancaster MD Signed By: <Electronically signed by Xu Lancaster MD in OV> 01/06/25 0541 DD/ 0540 TD/TT: 01/06/25 0540 Protective Officer: [facility] IMG US PROCEDURES Final R esult * (ABNORMAL) CBC auto differential (12/31/2024 11:42 AM EDT) Only the most recent of2 resultswithin the time period is included. White Blood Count 8.5 4.8 - 10.8 X10*3/uL [facility] Red Blood Count 5.38 4.20 - 5.50 X10*6/uL [facility] Hemoglobin 14.9 12.0 - 16.0 g/dl [facility] Hematocrit 44.1 37.0 - 47.0 % [facility] Mean Corpuscular Volume 82.0 80.0 - 98.0 fL [facility] Mean Corpuscular Hemoglobin 27.7 27.0 - 33.0 pg [facility] Mean Corpuscular HGB Conc 33.8 31.0 - 35.0 g/dl [facility] Red Cell Distribution Width 13.2 11.0 - 16.0 % [facility] Platelet Count 287 160 - 400 X10*3/uL [facility] Mean Platelet Volume 10.1 9.4 - 12.3 fL [facility] Neutrophils Percent Auto 73.1(H) 45 - 73 % [facility] Imm Gran Pct Auto 0.4 0.0 - 0.4 % [facility] Lymphocytes Percent Auto 18.7(L) 20 - 40 % [facility] Monocytes Percent Auto 5.5 2 - 11 % [facility] Eosinophils Percent Auto 2.1 0 - 4 % [facility] Basophils Percent Auto 0.2 0 - 2 % [facility] NRBC Pct Auto 0.0 0.0 - 0.2 /100WBC [facility] Neutrophils Absolute Auto 6.2 2.0 - 8.3 x10*3/uL [facility] Imm Gran Abs Auto 0.03 0.00 - 0.03 X10*3/uL [facility] Lymphocytes Absolute Auto 1.6 1.2 - 4.9 X10*3/uL [facility] Monocytes Absolute Auto 0.5 0.1 - 1.2 X10*3/uL [facility] Eosinophils Absolute Auto 0.2 0.0 - 0.4 X10*3/uL [facility] Basophils Absolute Auto 0.0 0.0 - 0.2 X10*3/uL [facility] NRBC Abs Auto 0.000 0.0 - 0.012 X10*3/uL [facility] Blood Venous blood specimen / Unknown 12/31/2024 11:42 AM EDT 12/31/2024 1:14 PM EDT [facility] LAB BLOOD ORDERABLES Christy l Result [facility] [address] [place] [address] [phone] * Partial Thromboplastin Time, Activated (APTT) (12/31/2024 11:42 AM EDT) Partial Thromboplastin Time 31.9 26.0 - 36.8 SEC [facility] Comment:For information rega rding the monitoring of direct thrombininhibitors, please refer to Pharmacy. Blood Venous blood specimen / Unknown 12/31/2024 11:42 AM EDT 12/31/2024 1:14 PM EDT [facility] LAB BLOOD ORDERABLES Christy l Result Performing Organization Address [facility] Co de Phone Number [facility] [address] [place] [phone] * (ABNORMAL) Prothrombin Time-INR (12/31/2024 11:42 AM EDT) Prothrombin Time 12.8(H) 10.9 - 12.4 SEC [facility] INTERNATIONAL NORM RATIO 1.1 0.9 - 1.1 [facility] Comment:INTERNATIONAL NORMAL IZED RATIO (INR) [...] 11:42 AM EDT 12/31/2024 1:14 PM EDT [facility] LAB BLOOD ORDERABLES Christy l Result Performing Organization Address City/[facility] Co de Phone Number [facility] [address] [place] [phone] * Iron And Total Iron Binding Capacity (11/19/2024 1:40 PM EST) Iron 87 30 - 160 mcg/dL [facility] Total Iron Binding Capacity 306 228 - 428 mcg/dL [facility] Percent Iron Saturation 28 15 - 50 % [facility] Unsaturated Iron Binding 219 ug/dL [facility] Blood Venous blood specimen / Unknown 11/19/2024 1:40 PM EST 11/19/2024 4:11 PM EST Yanci Oilvier MD LAB BLOOD ORDERAB LES Final Result Performing Organization Address [facility] Co de Phone Number [facility] [address] [place] [address] [phone] * Celiac Disease Comprehensive Panel (11/19/2024 1:40 PM EST) Pathologist [facility] Immunoglobulin A 199 47 - 310 mg/dL [facility] Comment:THIS TEST WAS PERFOR MED AT:[employer] [place] [phone] MARIA MD Transglutaminase IgA <1.0 U/mL [facility] Comment:Value Interpretation ----- <15.0 Antibody not detected> or = 15.0 Antibody detected Interpretation SEE NOTE [facility] Comment:No serological evide nce of celiac disease.tTG IgA may normalize in individuals with celiac diseasewho maintain a gluten-free diet. Consider HLA DQ2 andDQ8 testing to rule out celiac disease. Celiac diseaseis extremely rare in the absence of DQ2 or DQ8. Blood Venous blood specimen / Unknown 11/19/2024 1:40 PM EST 11/19/2024 4:11 PM EST Deborah Andrade [facility] LAB BLOOD ORDERABLES Christy l Result Performing Organization Address City/[facility]/ZIP Co de Phone Number [facility] [address] [place] [address] [phone] * CBC (11/19/2024 1:40 PM EST) Pathologist [facility] White Blood Count 9.1 4.8 - 10.8 X10*3/uL [facility] Red Blood Count 5.33 4.20 - 5.50 X10*6/uL [facility] Hemoglobin 14.6 12.0 - 16.0 g/dl [facility] Hematocrit 43.9 37.0 - 47.0 % [facility] Mean Corpuscular Volume 82.4 80.0 - 98.0 fL [facility] Mean Corpuscular Hemoglobin 27.4 27.0 - 33.0 pg [facility] Mean Corpuscular HGB Conc 33.3 31.0 - 35.0 g/dl [facility] Red Cell Distribution Width 12.7 11.0 - 16.0 % [facility] Platelet Count 336 160 - 400 X10*3/uL [facility] Mean Platelet Volume 9.8 9.4 - 12.3 fL [facility] NRBC Pct Auto 0.0 0.0 - 0.2 /100WBC [facility] NRBC Abs Auto 0.000 0.0 - 0.012 X10*3/uL [facility] Blood Venous blood specimen / Unknown 11/19/2024 1:40 PM EST 11/19/2024 4:11 PM EST us Yanci Olivier MD LAB BLOOD ORDERAB LES Final Result [facility] [address] [place] [phone] * (ABNORMAL) Ferritin (11/19/2024 1:40 PM EST) Ferritin 155(H) 10 - 122 ng/mL [facility] Blood Venous blood specimen / Unknown 11/19/2024 1:40 PM EST 11/19/2024 4:11 PM EST us Yanci Olivier MD LAB BLOOD ORDERAB LES Final Result Performing Organization Address City/[facility]/ZIP Co de Phone Number [facility] [address] [place] [phone] * Vitamin B12 (11/19/2024 1:40 PM EST) Vitamin B12 365 200 - 900 pg/mL [facility] Comment:NORMAL 200-900 PG/ML INDETERMINATE 160-199 PG/ML DEFICIENT < 160 PG/ML Blood Venous blood specimen / Unknown 11/19/2024 1:40 PM EST 11/19/2024 4:11 PM EST us Yanci Olivier MD LAB BLOOD ORDERAB LES Final Result [facility] [address] [place] [address] [phone] * (ABNORMAL) Comprehensive Metabolic Panel (11/19/2024 1:40 PM EST) Sodium 139 135 - 145 mmol/L [facility] Potassium 4.1 3.3 - 5.1 mmol/L [facility] Chloride 107 96 - 108 mmol/L [facility] Carbon Dioxide 25 22 - 29 mmol/L [facility] Anion Gap 11(L) 12 - 20 [facility] Urea Nitrogen (BUN) 11 9 - 16 mg/dL [facility] Creatinine, Serum 0.68 0.5 - 1.4 mg/dL [facility] Estimated Glomerular Filt Rate >60 [facility] Comment:Chronic Kidney Disea se: Estimated GFR < 60 mL/min/1.32p6Arrrcf Kidney Disease: Estimated GFR < 15 mL/min/1.73m2 Glucose 81 60 - 115 mg/dL [facility] Calcium 9.5 8.4 - 10.2 mg/dL [facility] Bilirubin, Total 0.9 0.0 - 1.0 mg/dL [facility] Aspartate Amino Transferase 27 5 - 31 U/L [facility] Alanine Aminotransferase 32(H) 0 - 31 U/L [facility] Total Protein 8.1(H) 6.5 - 8.0 g/dL [facility] Albumin Level 4.3 3.5 - 5.0 g/dL [facility] Alkaline Phosphatase 63 39 - 117 U/L [facility] Blood Venous blood specimen / Unknown 11/19/2024 1:40 PM EST 11/19/2024 4:11 PM EST Yanci Olivier MD LAB BLOOD ORDERAB LES Final Result Performing Organization Address [facility] Co de Phone Number [facility] [address] [place] [phone] * SARS-CoV-2 RNA, Influenza A/B, and RSV RNA, Ql NAAT (11/08/2024 11:11 AM EST) Influenza A PCR NEGATIVE Negative [facility] Influenza B PCR NEGATIVE Negative [facility] Resp Syncy Virus RNA Qual PCR NEGATIVE Negative [facility] SARS COV2 PCR NEGATIVE Negative [facility] Comment:All test results mus t [...] use by authorized laboratories.Testing performed on the [employer] GeneXpert utilizingreal-time RT-PCR.All SARS CoV2 and positive influenza A/B results arereported to [facility]. 11/08/2024 11:1 1 AM EST 11/08/2024 11:32 AM EST us Generic External Data Provider LAB MICROBIOLOGY - GENERAL ORDERABLES Final Result Performing Organization Address [facility]/ZIP Co de Phone Number [facility] [address] [place] [phone] * hCG, Total, Quantitative (11/08/2024 11:11 AM EST) HCG Quantitative <2 mIU/mL [facility] Comment:Weeks post LMP Appro ximate hCG(Last Menstrual Period) Range (mIU/ml)3 - 4 weeks 9 - 1304 - 5 weeks 75 - 2,6005 - 6 weeks 850 - 20,8006 - 7 weeks 4000 - 100,2007 - 12 weeks 11,500 - 289,07765 - 16 weeks 18,300 - 137,31944 - 29 weeks (2nd trimester) 1,400 - 53,07636 - 41 weeks (3rd trimester) 940 - [...] ORDERAB LES Final Result Performing Organization Address [facility] Phone Number [facility] [address] [place] [phone] * Magnesium (11/08/2024 11:11 AM EST) Magnesium 2.1 1.6 - 2.6 mg/dL [facility] 11/08/2024 11:1 1 AM EST 11/08/2024 11:32 AM EST Generic External Data Provider LAB BLOOD ORDERAB LES Final Result Performing Organization Address [facility] de Phone Number [facility] [address] [place] [phone] * Lipase (11/08/2024 11:11 AM EST) Lipase 20 8 - 78 U/L [facility] 11/08/2024 11:1 1 AM EST 11/08/2024 11:32 AM EST Generic External Data Provider LAB BLOOD ORDERAB LES Final Result Performing Organization Address [facility]/State/ZIP Co de Phone Number [facility] [address] [place] [phone] * (ABNORMAL) Hepatic Function Panel (11/08/2024 11:11 AM EST) [facility] Bilirubin, Total 1.2(H) 0.0 - 1.0 mg/dL [facility] Bilirubin, Direct 0.5 0.0 - 0.5 mg/dL [facility] Aspartate Amino Transferase 53(H) 5 - 31 U/L [facility] Comment:Slight Hemolysis.Int erpret result with caution. Alanine Aminotransferase 56(H) 0 - 31 U/L [facility] Total Protein 8.1(H) 6.5 - 8.0 g/dL [facility] Albumin Level 4.0 3.5 - 5.0 g/dL [facility] Alkaline Phosphatase 90 39 - 117 U/L [facility] 11/08/2024 11:1 1 AM EST 11/08/2024 11:32 AM EST us Generic External Data Provider LAB BLOOD ORDERAB LES Final Result Performing Organization Address City/State/[facility] Co de Phone Number [facility] [address] [place] [phone] * (ABNORMAL) Basic Metabolic Panel (11/08/2024 11:11 AM EST) [facility] Sodium 135 135 - 145 mmol/L [facility] Potassium 3.6 3.3 - 5.1 mmol/L [facility] Comment:Slight Hemolysis.Int erpret result with caution. Chloride 105 96 - 108 mmol/L [facility] Carbon Dioxide 18(L) 22 - 29 mmol/L [facility] Anion Gap 16 12 - 20 [facility] Urea Nitrogen (BUN) 5(L) 9 - 16 mg/dL [facility] Creatinine, Serum 0.68 0.5 - 1.4 mg/dL [facility] Creatinine Clr Calc Pharmacy 145.5 [facility] Comment:Provided height and weight: 160.02 cm,102.1 kg.eGFR (calculated from the MDRD study equation) and eCrCl(calculated from the Cockcroft-Gault equation) are based ondifferent parameters and may not yield comparable results.If eCrCl result is absurd, please check patient'sheight/weight. Estimated Glomerular Filt Rate >60 [facility] Comment:Chronic Kidney Disea se: Estimated GFR < 60 mL/min/1.39r4Jjivsj Kidney Disease: Estimated GFR < 15 mL/min/1.73m2 Glucose 100 60 - 115 mg/dL [facility] Calcium 9.2 8.4 - 10.2 mg/dL [facility] 11/08/2024 11:1 1 AM EST 11/08/2024 11:32 AM EST us Generic External Data Provider LAB BLOOD ORDERAB LES Final Result Performing Organization Address City/State/[facility] Co de Phone Number [facility] [address] [place] [phone] * Pap Smear (01/21/2024 2:33 PM EDT) 01/21/2024 2:33 PM EDT 01/22/2024 9:00 AM EDT Narrative [facility] - 02/07/2024 5:46 PM EDT ----- ------- Name: Summer Sandoval ? Age/Sex: 23/F ? : 2000 Unit#: [id number] ?? Attend Dr: Maura Ramirez CNM ?Re01/21/24 ?Status: DEP REF ? Location: HO.LNP ?Disch: ? ----- ------- SPEC : [id number] ? RECD: 01/22/24 ? STATUS: ??SOUT ? REQ NUM: [id number] ? ANGELIKA: 01/21/24-1433 ? SUBM DR: Maura Ramirez CNM ? ENTERED: ??01/22/24 ?SP TYPE: Pap Smr ?OTHR DR: Lisa Bennett MD ? ORDERED: ??Pap Smear ? Interpretation ?? Satisfactory for evaluation. ?? Negative for intraepithelial lesion or malignancy. ?Clinical Information LMP: 01/01/24 Previous PAP test: 2020, WNL ? Material Received ?? ThinPrep-Cervical Copies To: ?? Lisa Bennett MD ?? [address] ?? [place] [address] ? Maura Ramirez CNM ?? [address] [place] ?? [place] [address] ?? [phone] ----- ------- Signed (signature on file) Alison West Caterina 02/07/241745 ? ----- ------- ? END OF REPORT ? us Generic External Data Provider LAB CYTOLOGY POLO KINNEY Final Result [facility] [address] [place] [phone] * Hepatitis C Antibody with Reflex to HCV, RNA, Quantitative, Real-Time PCR (11/11/2023 2:54 PM EST) Hepatitis C Antibody Nonreactive Nonreactive [facility] Comment:Antibodies to HCV no t detected; does not exclude early acuteHCV infection. Blood Venous blood specimen / Unknown 11/11/2023 2:54 PM EST 11/11/2023 4:23 PM EST us Yanci Olivier MD LAB BLOOD ORDERAB LES Final Result Performing Organization Address City/[facility]/ZIP Co de Phone Number [facility] [address] [place] [phone] * HIV-1/2 Antigen and Antibodies, Fourth Generation, with Reflexes (11/11/2023 2:54 PM EST) HIV AB/AG Nonreactive Nonreactive [facility] Comment:HIV-1 p24 Ag and/or HIV-1/HIV-2 Ab not detected.A test result that is nonreactive does not exclude thepossibility of exposure to or infection with HIV-1 and/orHIV-2. Nonreactive results in this assay for individualswith prior exposure to HIV-1 and/or HIV-2 may be due toantigen and antibody levels that are below the limit ofdetection of this assay.The [employer] HIV Ag/Ab Combo assay result andsupplemental assay [...] Final Result Performing Organization Address City/[facility]/ZIP Co de Phone Number [facility] [address] [place] [phone] * (ABNORMAL) Lipid Panel, Standard (11/11/2023 2:54 PM EST) Triglycerides 96 <150 mg/dL [facility] Comment:Desirable Triglyceri de: less than 150 mg/dLBorderline High Triglyceride 150-199 mg/dLHigh Triglyceride: 200-499 mg/dLVery High Triglyceride: greater than or equal to 5OO mg/dL Cholesterol 106 <200 mg/dL [facility] Comment:Desirable Cholestero l: less than 200 mg/dLBorderline High Cholesterol: 200-239 mg/dLHigh Cholesterol: greater than 239 mg/dL LDL Cholesterol Calculated 55 <100 mg/dL [facility] Comment:Desirable LDL: less than 100 mg/dLNear Optimal/Above Optimal LDL: 110- 129 mg/dLBorderline High LDL: 130-159 mg/dLHigh LDL: 160-189 mg/dLVery High LDL: greater than or equal to 190 mg/dL HDL Cholesterol 32(L) >40 mg/dL [facility] Comment:Desirable HDL: great er than 40 mg/dL Note: This HDL assay may give artificially low results in patients with liver disease. Blood Venous blood specimen / Unknown 11/11/2023 2:54 PM EST 11/11/2023 4:23 PM EST us Yanci Olivier MD LAB BLOOD ORDERAB LES Final Result [facility] [address] [place] [address] [phone] from Last 3 Months or Most Recently Relevant to Health Maintenance [place] [address] [place] [address] C3 Care Teams Showroom Manager Relationship Specialty Start Date End Date Deborah Andrade CNP [address] [place] [id number] PCP - General Family Medicine 09/01/24
== END 2025-01-25 14:31 | disposition home or self-care (01) ==
LOC: HO.HWS 13:48
PROVIDERS: Visit Provider Advanced Practice Midwife
DX: Z01.419 Encounter for gynecological examination (general) (routine) without abnormal findings (principal); Z11.3 Encounter for screening for infections with a predominantly sexual mode of transmission; Z32.02 Encounter for pregnancy test, result negative; R30.0 Dysuria
CPT/HCPCS: 99395; 99459

== ENCOUNTER 2025-01-25 13:48 | Outpatient (REF) | payer MEDICAID, SELFPAY ==
[2025-01-25 16:14] LABS: Vitamin B12 274 pg/mL (200-900)
[2025-01-26 08:30] LABS: Syphilis Screen Nonreactive (Nonreactive)
[2025-01-26 09:11] LABS: HBc Num1 0.11 S/CO (0.00-0.79); HIV AB/AG Nonreactive (Nonreactive); HIV Num 1 0.06 S/CO (0.00-0.99); Hepatitis B Core Antibody Nonreactive (Nonreactive); ~HepC Num1 0.42 S/CO (0.00-0.79); ~Hepatitis C Antibody Nonreactive (Nonreactive)
[2025-01-26 13:35] LABS: Bacterial Vaginosis PCR POSITIVE (Negative); Candida Group PCR NOT DETECTED (Not Detect); Candida glab krusei PCR NOT DETECTED (Not Detect); Trichomonas vaginalis PCR NOT DETECTED (Not Detect)
[2025-01-26 14:16] LABS: CT PCR NOT DETECTED (Not Detect.); NG PCR NOT DETECTED (Not Detect.)
== END 2025-01-25 13:49 | disposition home or self-care (01) ==
LOC: HO.LAB 13:48
PROVIDERS: Student in an Organized Health Care Education/Training Program; Visit Provider Advanced Practice Midwife
DX: Z01.419 Encounter for gynecological examination (general) (routine) without abnormal findings (principal); Z20.2 Contact with and (suspected) exposure to infections with a predominantly sexual mode of transmission; R55 Syncope and collapse; R30.0 Dysuria
CPT/HCPCS: 36415; 81003; 81025; 81515; 82607; 86704; 86780; 86803; 87086; 87389; 87491; 87591; 99395; 99459

== ENCOUNTER 2025-01-25 14:20 | Outpatient (REF) | payer MEDICAID, SELFPAY | END 2025-01-25 14:21 | disposition home or self-care (01) | LOC: HO.LNP 14:20 | PROVIDERS: Visit Provider Advanced Practice Midwife | DX: Z13.89 Encounter for screening for other disorder (principal) ==

== ENCOUNTER 2025-02-03 18:02 | Emergency (ER) | payer MEDICAID, SELFPAY ==
--- NOTE | ~2025-02-03 | US_ITS ---
CLINICAL HISTORY: RUQ tenderness, n v d US abdomen limited Comparison: US - US ABDOMEN COMPLETE - 01/05/25 09:11 EDT Findings: Contracted gallbladder. No gallbladder wall thickening. Small gallstones noted. No pericholecystic fluid. No biliary ductal dilatation. IMPRESSION: Contracted gallbladder containing a few small gallstones. No findings of cholecystitis or biliary ductal dilatation. This document has been electronically signed by: Adin Robledo MD on 02/03/2025 19:26:43
--- NOTE | ~2025-02-03 | CT_ITS ---
CLINICAL HISTORY: RUQ, RLQ pain, R O appendicitis, biliary disease CT abdomen and pelvis with contrast Comparison: CT - CT ABDOMEN PELVIS W IV CON - 02/03/25 19:26 EDT Findings: No acute finding in the partially imaged lung bases. No gallbladder distention or wall thickening. No pericholecystic fat stranding. No biliary ductal dilatation. Normal liver, spleen, pancreas, and adrenal glands. Normal kidneys, ureters, and urinary bladder. No free fluid or free air in the abdomen or pelvis. Normal stomach, small bowel, appendix, and colon. IUD noted. Otherwise normal uterus and ovaries. No acute or suspicious bone lesion. IMPRESSION: 1. Contracted gallbladder without findings of cholecystitis or biliary ductal dilatation. 2. Negative for appendicitis. This document has been electronically signed by: Adin Robledo MD on 02/03/2025 20:30:25
[2025-02-03 18:04] VITALS: BP 110/82; PULSE 104; RESP 18; TEMP 36.7; O2SAT 100; BMI 34.7
--- NOTE | 2025-02-03 18:04 | ED_ITS ---
HPI - General Adult General Chief complaint: Abdominal Pain Stated complaint: Gallstones pain Time Seen by Provider: 02/03/25 18:21 Source: patient Mode of arrival: ambulatory Limitations: no limitations History of Present Illness ED Provider: Dr. Dontae Hobson HPI narrative: 24-year-old female with a history of migraines who presents emergency department for evaluation of right upper quadrant and right flank pain times 6-8 months. Patient states that initially she thought it was secondary to drinking too much soda but she stopped drinking soda and this did not resolve the pain. She states that she feels bloated. She points to her right upper quadrant and right flank when asked to localize the pain. She states the pain is made worse by eating food. She states about 10-15 minutes after eating she gets the pain and then the pain can last for hours. She states for the last 2 days she has had at least 6-7 episodes of vomiting per day and 3-4 episodes of liquidy stool. She states that her pain is 10/10. She took Tylenol with no relief for the pain. She denied fever, chills, chest pain, shortness of breath, cough. Related Data Home Medications ?Medication ?Instructions ?Recorded ?Confirmed levonorgestrel 17.5 mcg/24 hr (up intrauterine 07/25/23 01/27/24 to 5 yrs) 19.5mg intrauterine device (Kyleena) tirzepatide (weight loss) 12.5 mg subcut QWEEK 01/25/25 mg/0.5 mL subcutaneous pen injector (Zepbound) Previous Rx's ?Medication ?Instructions ?Recorded cyclobenzaprine 10 mg tablet 10 mg PO TID PRN muscle spasm #14 04/19/23 tabs ondansetron 4 mg disintegrating 4 mg PO Q8H PRN nausea and 04/19/23 tablet vomiting #20 tabs metronidazole 500 mg tablet 500 mg PO BID 7 days #14 tabs 01/26/25 aluminum hydrox-magnesium carb 254 10 ml PO QID PRN dyspepsia #355 mL 02/03/25 mg-237.5 mg/5 mL oral suspension (Gaviscon Extra Strength) omeprazole 20 mg capsule,delayed 20 mg PO DAILY 30 days #30 caps 02/03/25 release ondansetron 4 mg disintegrating 4 mg PO Q6-8H PRN nausea and 02/03/25 tablet vomiting #14 tabs Allergies Allergy/AdvReac Type Severity Reaction Status Date / Time cinnamon [CINNAMON] Allergy Severe ANAPHYLAXIS Verified 02/03/25 18:08 sweet potato [SWEET POTATO] Allergy Severe ANAPHYLAXIS Verified 02/03/25 18:08 Review of Systems 2 Review of Systems: Yes all other systems are reviewed and are negative [facility] Past Medical History [facility] Narrative: Social history: Patient denies tobacco use. She denies alcohol use. She states she uses THC gummies 5 mg once a week for migraine headaches. Medical History IUD (intrauterine device) in place Encounter for well woman exam with routine gynecological exam Obesity Anxiety attack Surgical History History of tonsillectomy and adenoidectomy Family History Family History Mother Cervical cancer Maternal Uncle Diabetes mellitus CVD (cardiovascular disease) Maternal Aunt Ovarian cancer Son Autism Family/Other History of breast cancer Social History Social History Unable to assess alcohol history related to: Unknown Alcohol intake: never Patient Tobacco Use Status: Never used Tobacco Use of substances other than those prescribed or required for medical reasons: Unknown Advance Directives: No Advance Directives Information Provided: No Patient : No Sexual orientation: Straight/Heterosexual Gender identity: Female Physical Exam ED Vital Signs: Vital Signs - 24 hr 02/03/25 18:04 02/03/25 20:09 Temperature 98.1 F Pulse Rate 104 H 57 Respiratory Rate 18 16 Blood Pressure 110/82 93/53 L Pulse Oximetry 100 100 Oxygen Delivery Method Room Air Room Air BMI result Body Mass Index 34.7 Vital signs revealed elevated heart rate of 104 otherwise unremarkable Exam: General: Awake, alert in no distress Head: Normocephalic, atraumatic EENT: PERRL, Lids normal, sclera normal, conjunctiva normal, nose normal , ears normal, throat without erythema or exudates Neck: Supple, no adenopathy Lung: breath sounds symmetric, no wheezing, rales or rhonchi Chest: symmetric movement, nontender Heart: regular rate and rhythm, normal S1, S2 no murmurs or rubs Abdomen: soft, mild to moderate epigastric tenderness, mild right upper quadrant tenderness with a negative Sinha sign, mild to moderate right lower quadrant tenderness Back: no vertebral tenderness, right CVA tenderness, no left CVA tenderness Extremities: no deformities, moves all extremities symmetrically Neuro: Awake, alert, oriented, normal speech, cranial nerves intact, moves all extremities symmetrically Psych: Pleasant, cooperative Course Course Course Narrative: This is a rapid medical exam performed by Katrin Venegas NP: Additional HPI, ROS, PE not included below will be deferred to primary provider. Patient is a 24-year-old female presenting with complaint of right flank pain, rates 10/10, known gallstones. Reports bilious emesis, diarrhea. Not tolerating PO. Plan: labs, u/s Medications Administered Discontinued Medications Generic Name Dose Route Start Last Admin Trade Name Freq PRN Reason Stop Dose Admin Sodium Chloride 1,000 mls @ 999 mls/hr 02/03/25 18:43 02/03/25 20:04 Ns IV 02/03/25 19:43 Infused .Q1H1M STA Infusion Iohexol 100 ml 02/03/25 19:38 02/03/25 19:38 Iohexol 350 Mg/Ml 100 Ml Infus..Btl IV 02/03/25 19:39 85 ml ONCE ONE Administration Ketorolac Tromethamine 15 mg 02/03/25 18:43 02/03/25 18:58 Ketorolac Tromethamine 15 Mg/Ml Vial IVPUSH 02/03/25 18:44 15 mg ONCE STA Administration Morphine Sulfate 4 mg 02/03/25 18:43 02/03/25 18:58 Morphine Sulfate 4 Mg/Ml Cartridge IVPUSH 02/03/25 18:44 4 mg ONCE STA Administration Protocol Morphine Sulfate 4 mg 02/03/25 20:47 02/03/25 20:58 Morphine Sulfate 4 Mg/Ml Cartridge IVPUSH 02/03/25 20:48 4 mg ONCE STA Administration Protocol Ondansetron HCl 4 mg 02/03/25 18:43 02/03/25 18:58 Ondansetron Hcl 4 Mg/2 Ml Vial IVPUSH 02/03/25 18:44 4 mg ONCE ONE Administration Medical Decision Making Medical Decision Making MDM Narrative: 24-year-old female with a history of migraines who presents emergency department for evaluation of right upper quadrant and right flank pain times 6-8 months. Patient states that initially she thought it was secondary to drinking too much soda but she stopped drinking soda and this did not resolve the pain. She states that she feels bloated. She points to her right upper quadrant and right flank when asked to localize the pain. She states the pain is made worse by eating food. She states about 10-15 minutes after eating she gets the pain and then the pain can last for hours. She states for the last 2 days she has had at least 6-7 episodes of vomiting per day and 3-4 episodes of liquidy stool. She states that her pain is 10/10. She took Tylenol with no relief for the pain. She denied fever, chills, chest pain, shortness of breath, cough. Vital signs revealed an elevated heart rate otherwise unremarkable. Examination did reveal epigastric and right lower quadrant tenderness with mild right upper quadrant tenderness with a negative Sinha sign. She also had right CVA tenderness. Differential diagnosis: ?Includes but is not limited to biliary colic, renal colic, cholecystitis, pancreatitis, diverticulitis, appendicitis, pyelonephritis, electrolyte abnormalities, anemia Course: 21:07 hours My independent interpretation patient's laboratory evaluation as follows: CBC was normal. Potassium low 3.2. ALT elevated 40. Bilirubin elevated 1.1. Lipase was normal at 13. Quantitative beta-hCG was negative. Right upper quadrant ultrasound revealed a contracted gallbladder with no other significant findings. CT scan of the abdomen pelvis IV revealed contracted gallbladder with no inflammatory changes around the gallbladder or liver. Appendix appeared normal. Patient was treated with normal saline IV x1 L, Zofran 4 mg IV, morphine 4 mg IV x2, Toradol 15 mg IV x1, and morphine 4 mg IV x2. Patient is currently pain- free. At this time I suspect that the patient's pain is more consistent with gastritis as opposed to appendicitis or acute cholecystitis and I did discuss this with the patient. Patient's pain is worse shortly after eating which suggests that the patient's pain may be secondary to gastritis. Patient is taking famotidine and I advised her to stop this medication. She was prescribed Prilosec 20 mg q.day x1 month. She was also given prescription for extra- strength Gaviscon 4 times a day as needed for abdominal pain. Patient was given printed and verbal instructions and discharged home. Admission/Observation Consideration of admission/observation: Escalation of care including admission/observation considered (Yes) Lab Data MDM Lab Attestation statement: I reviewed the patient's lab results. 02/03/25 18:13 02/03/25 18:13 Labs: Lab Results 02/03/25 02/03/25 Range/Units 18:13 18:16 WBC 8.3 (4.8-10.8) X10*3/uL RBC 5.27 (4.20-5.50) X10*6/uL Hgb 14.9 (12.0-16.0) g/dl Hct 43.0 (37.0-47.0) % MCV 81.6 (80.0-98.0) fL MCH 28.3 (27.0-33.0) pg MCHC 34.7 (31.0-35.0) g/dl RDW 12.6 (11.0-16.0) % Plt Count 270 (160-400) X10*3/uL MPV 10.0 (9.4-12.3) fL Immature Gran % (Auto) 0.4 (0.0-0.4) % Neut % (Auto) 75.4 H (45-73) % Lymph % (Auto) 17.6 L (20-40) % [place] % (Auto) 4.2 (2-11) % Eos % (Auto) 2.3 (0-4) % Baso % (Auto) 0.1 (0-2) % Lymph # (Auto) 1.5 (1.2-4.9) X10*3/uL [place] # (Auto) 0.4 (0.1-1.2) X10*3/uL Eos # (Auto) 0.2 (0.0-0.4) X10*3/uL Baso # (Auto) 0.0 (0.0-0.2) X10*3/uL Abs Immat Gran (auto) 0.03 (0.00-0.03) X10*3/uL Absolute Neuts (auto) 6.3 (2.0-8.3) x10*3/uL Absolute Nucleated RBC 0.000 (0.0-0.012) X10*3/uL Nucleated RBC % (auto) 0.0 (0.0-0.2) /100WBC Sodium 141 (135-145) mmol/L Potassium 3.2 L D (3.3-5.1) mmol/L Chloride 107 (96-108) mmol/L Carbon Dioxide 25 (22-29) mmol/L Anion Gap 12 (12-20) BUN 7 L (9-16) mg/dL Creatinine 0.63 (0.5-1.4) mg/dL Estim Creat Clear Calc 145.5 Estimated GFR > 60 Random Glucose 82 (60-115) mg/dL Calcium 9.4 (8.4-10.2) mg/dL Total Bilirubin 1.1 H (0.0-1.0) mg/dL AST 26 (5-31) U/L ALT 40 H (0-31) U/L Alkaline Phosphatase 78 (39-117) U/L Total Protein 7.5 (6.5-8.0) g/dL Albumin 4.5 (3.5-5.0) g/dL Lipase 13 (8-78) U/L Beta HCG, Quant < 2 mIU/mL Urine Color Dark Yellow Urine Appearance Cloudy Urine pH 6.0 (5.0-9.0) Ur Specific [place] >= 1.030 H (1.005-1.025) Urine Protein Trace (Neg-Trace) mg/dL Urine Glucose (UA) Negative (Negative) mg/dL Urine Ketones 15 (Negative) mg/dL Urine Blood Negative (Negative) Urine Nitrite Negative (Negative) Ur Leukocyte Esterase Negative (Negative) Radiology Impression Discussion of test interpretation with radiology: I have reviewed the radiologist's reading. Radiologist Impression: US abdomen limited Comparison: US - US ABDOMEN COMPLETE - 01/05/25 09:11 EDT Findings: Contracted gallbladder. No gallbladder wall thickening. Small gallstones noted. No pericholecystic fluid. No biliary ductal dilatation. IMPRESSION: Contracted gallbladder containing a few small gallstones. No findings of cholecystitis or biliary ductal dilatation. This document has been electronically signed by: Adin Robledo MD on 02/03/2025 19:26:43 CT abdomen and pelvis with contrast Comparison: CT - CT ABDOMEN PELVIS W IV CON - 02/03/25 19:26 EDT Findings: No acute finding in the partially imaged lung bases. No gallbladder distention or wall thickening. No pericholecystic fat stranding. No biliary ductal dilatation. Normal liver, spleen, pancreas, and adrenal glands. Normal kidneys, ureters, and urinary bladder. No free fluid or free air in the abdomen or pelvis. Normal stomach, small bowel, appendix, and colon. IUD noted. Otherwise normal uterus and ovaries. No acute or suspicious bone lesion. IMPRESSION: 1. Contracted gallbladder without findings of cholecystitis or biliary ductal dilatation. 2. Negative for appendicitis. This document has been electronically signed by: Adin Robledo MD on 02/03/2025 20:30:25 Prescription Management I considered prescription management with: Other (Proton pump inhibitor: Prilosec; antacid: Extra-strength Gaviscon) Discharge Plan Discharge Clinical Impression: Gastritis, Abdominal pain, Gallstones Patient Disposition: Home, Self-Care Instructions: Gastritis (ED), Gallstones (ED) Additional Instructions: Your blood work was unremarkable including normal liver tests and normal pancreas test (lipase). The ultrasound of your abdomen revealed gallstones but no evidence for inflammation of your gallbladder at this time. The CT scan of your abdomen pelvis with IV contrast revealed a contracted gallbladder with gallstones but again there was no evidence of inflammation of your gallbladder or of your liver which is reassuring. Your appendix appeared to be normal as well on the CT scan. At this time, I am not sure exactly what is causing your pain but I am more concerned that your pain is caused by inflammation of your stomach (gastritis) and not gallbladder disease. Stop taking the famotidine. Take Prilosec (omeprazole) 20 mg pills, 1 pill once a day for 1 month. ?This medication shuts off your acid production and lets the inflammation in your stomach and esophagus heal. Take extra-strength Gaviscon 10 mL (2 tsp) 4 times a day as needed for abdominal pain. Take Zofran ODT 4 mg pills, 1 pill dissolved in your mouth every 8 hours as needed for nausea and vomiting. Follow-up with your doctor in 2 days. Please return to the emergency department if your symptoms get worse or if you develop any symptoms that are concerning to you. Prescriptions: New omeprazole 20 mg capsule,delayed release(DR/EC) 20 mg PO DAILY 30 Days Qty: 30 0RF Gaviscon Extra Strength 254-237.5 mg/5 mL suspension 10 ml PO QID PRN (Reason: dyspepsia) Qty: 355 0RF ondansetron 4 mg tablet,disintegrating 4 mg PO Q6-8H PRN (Reason: nausea and vomiting) Qty: 14 0RF No Action metronidazole 500 mg tablet 500 mg PO BID 7 Days Qty: 14 0RF Rx Instructions: Take with food, Avoid alcohol and vinegar products cyclobenzaprine 10 mg tablet 10 mg PO TID PRN (Reason: muscle spasm) Qty: 14 0RF ondansetron 4 mg tablet,disintegrating 4 mg PO Q8H PRN (Reason: nausea and vomiting) Qty: 20 0RF Zepbound 12.5 mg/0.5 mL pen injector subcut QWEEK Kyleena 17.5 mcg/24 hrs (5 yrs) 19.5 mg intrauterine device intrauterine Stand Alone Forms: Work/School Release Print Language: Indonesian
[2025-02-03 18:25] LABS: MANUAL DIFF FLAG NO
[2025-02-03 18:28] LABS: Appearance Urine Cloudy; Color Urine Dark Yellow; Glucose Urine UA Negative (Negative); Leukocyte Esterase Urine Negative (Negative); Nitrite Urine Negative (Negative); Specific Gravity - Urine >= 1.030 (1.005-1.025); Urine Blood Negative (Negative); Urine Ketones 15 mg/dL (Negative); Urine Protein Trace mg/dL (Neg-Trace)
[2025-02-03 18:28] LABS: Basophils Percent Auto 0.1 % (0-2); Eosinophils Absolute Auto 0.2 X10*3/uL (0.0-0.4); Eosinophils Percent Auto 2.3 % (0-4); Hemoglobin 14.9 g/dl (12.0-16.0); Imm Gran Abs Auto 0.03 X10*3/uL (0.00-0.03); Imm Gran Pct Auto 0.4 % (0.0-0.4); Lymphocytes Absolute Auto 1.5 X10*3/uL (1.2-4.9); Lymphocytes Percent Auto 17.6 % (20-40); Mean Corpuscular HGB Conc 34.7 g/dl (31.0-35.0); Mean Corpuscular Hemoglobin 28.3 pg (27.0-33.0); Mean Corpuscular Volume 81.6 fL (80.0-98.0); Monocytes Absolute Auto 0.4 X10*3/uL (0.1-1.2); Monocytes Percent Auto 4.2 % (2-11); Neutrophils Absolute Auto 6.3 x10*3/uL (2.0-8.3); Neutrophils Percent Auto 75.4 % (45-73); Platelet Count 270 X10*3/uL (160-400); Red Blood Count 5.27 X10*6/uL (4.20-5.50); Red Cell Distribution Width 12.6 % (11.0-16.0); White Blood Count 8.3 X10*3/uL (4.8-10.8)
[2025-02-03 18:50] LABS: Alanine Aminotransferase 40 U/L (0-31); Albumin Level 4.5 g/dL (3.5-5.0); Alkaline Phosphatase 78 U/L (39-117); Anion Gap 12 (12-20); Aspartate Amino Transferase 26 U/L (5-31); Bilirubin Total 1.1 mg/dL (0.0-1.0); Blood Urea Nitrogen 7 mg/dL (9-16); Calcium 9.4 mg/dL (8.4-10.2); Carbon Dioxide 25 mmol/L (22-29); Chloride 107 mmol/L (96-108); Creatinine Clr Calc Pharmacy 145.5; Estimated Glomerular Filt Rate > 60; Glucose Random 82 mg/dL (60-115); Lipase 13 U/L (8-78); Potassium 3.2 mmol/L (3.3-5.1); Sodium 141 mmol/L (135-145); Total Protein 7.5 g/dL (6.5-8.0)
[2025-02-03] MEDS: ondansetron HCL 4 MG/2 ML VIAL IVPUSH (18:58)
[2025-02-03] MEDS: Ketorolac Tromethamine 15 MG/ML VIAL IVPUSH (18:58)
[2025-02-03] MEDS: Morphine Sulfate 4 MG/ML CARTRIDGE IVPUSH ×2 (18:58→20:58)
[2025-02-03] MEDS: 0.9 % Sodium Chloride 1,000 ML 999 ML IV (18:58)
[2025-02-03 19:13] LABS: HCG Quantitative < 2 mIU/mL
[2025-02-03] MEDS: iohexoL 350 MG/ML 100 ML INFUS..BTL IV (19:38)
[2025-02-03 20:09] VITALS: BP 93/53; PULSE 57; RESP 16; O2SAT 100
[2025-02-03 21:23] VITALS: BP 100/60; PULSE 62; RESP 16; TEMP 36.8; O2SAT 100
== END 2025-02-03 21:24 | disposition home or self-care (01) ==
PROVIDERS: Registered Nurse Emergency; Emergency Provider Emergency Medicine Emergency Medical Services
DX: K29.70 Gastritis, unspecified, without bleeding (principal); K80.20 Calculus of gallbladder without cholecystitis without obstruction; R10.11 Right upper quadrant pain; R11.2 Nausea with vomiting, unspecified; Z79.899 Other long term (current) drug therapy
CPT/HCPCS: 36415; 74177; 76705; 80053; 81003; 83690; 84702; 85025; 96361; 96374; 96375; 96376; 99284; J1885; J2270; J2405; Q9967

== ENCOUNTER → 2025-02-03 18:07 | Outpatient (BNV) | payer MEDICAID, SELFPAY | PROVIDERS: Emergency Provider Emergency Medicine Emergency Medical Services; Visit Provider Radiology Diagnostic Radiology | DX: K82.0 Obstruction of gallbladder (principal) | CPT/HCPCS: 74177; 76705 ==